=== PATIENT | female | born 1945 | race Caucasian/White ===

== ENCOUNTER 2021-10-15 15:47 | Emergency (ER) | payer MEDICARE, BC, SELFPAY ==
[2021-10-15 15:58] VITALS: BP 132/84; PULSE 77; RESP 18; TEMP 36.4; O2SAT 95; BMI 34.1
--- NOTE | 2021-10-15 16:07 | CRLHL7_ITS ---
For Patients: As a result of the Century Cures Act, medical imaging exams and procedure reports are released immediately into your electronic medical record. You may view this report before your referring provider. If you have questions, please contact your health care provider. INDICATION: Fall TECHNIQUE: Head CT without contrast. COMPARISON: None FINDINGS: CSF spaces: Within normal limits for age. Brain parenchyma: There are nonspecific low attenuation white matter changes consistent with chronic microvascular disease. No sign of mass, hemorrhage, or midline shift. Skull base and calvarium: High attenuation complete opacification of the right maxillary sinus. Mucosal thickening and fluid level in the left maxillary sinus. Some mucosal thickening and near complete opacification of left ethmoid air cells. The visualized orbits are grossly unremarkable. No skull fractures. Under form uniform high attenuation focus posterior right calvarium may be mineralized prior subperiosteal hematoma. There is intracranial atherosclerosis. 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 IMPRESSION: 1. No acute findings. 2. Nonspecific white matter disease, typical of chronic microvascular disease. Please note that all CT scans at this facility use dose modulation, iterative reconstruction, and/or weight-based dosing when appropriate to reduce radiation dose to as low as reasonably achievable. Dictated by Franco Valencia MD @ 10/15/2021 4:58:26 PM (Electronically Signed)
--- NOTE | 2021-10-15 16:53 | ED.GENADULT ---
HPI - General Adult General Date Seen: 10/15/21 Chief complaint: Head Injury/Pain Stated complaint: Fall, hit head Time Seen by Provider: 10/15/21 16:02 Source: patient History of Present Illness HPI narrative: Patient is a 76-year-old woman here with her after a fall her home. She says she was [place] in [place] and tripped over stick. She fell forward hitting the right side of her head. She did not have loss of consciousness although she felt briefly woozy. She denies neck pain. She does have a little bit of a headache although it is better now than it was when she 1st fell. She has not had any vomiting or altered mentation. She has a small cut by her lip. No loose or missing teeth. No other facial trauma. She has not take any blood thinners al Related Data Home Medications Medication Instructions Recorded Confirmed fluticasone 250 mcg-salmeterol 50 inhalation 10/15/21 mcg/dose blistr powdr for inhalation (Advair Diskus) fluticasone propionate 50 intranasal 10/15/21 mcg/actuation nasal spray,suspension glimepiride 1 mg tablet mg 10/15/21 liraglutide 0.6 mg/0.1 mL (18 mg/3 mg subcut 10/15/21 mL) subcutaneous pen injector (iBid2Saveza 3-Nickolas) lisinopril 2.5 mg tablet mg 10/15/21 lorazepam 0.5 mg tablet mg 10/15/21 omeprazole 20 mg capsule,delayed mg 10/15/21 release paroxetine HCl 20 mg tablet mg PO 10/15/21 pen needle, diabetic 32 gauge x 10/15/21 10/15/2132 (BD Sofiya 2nd Gen Pen Needle) prednisolone acetate 1 % eye drp 10/15/21 drops,suspension primidone 50 mg tablet mg 10/15/21 Previous Rx's Medication Instructions Recorded simvastatin 20 mg tablet 20 mg PO QPM #90 tabs 10/06/21 Allergies Allergy/AdvReac Type Severity Reaction Status Date / Time bupropion AdvReac Mild Diarrhea Verified 10/03/21 10:27 metformin AdvReac Unknown Verified 10/03/21 10:27 Review of Systems Status of ROS: Reports: 10 or more systems reviewed and unremarkable except as noted in History and below [facility] Medical History Biliary dyskinesia Cholelithiasis History of sarcoidosis (1980) Surgical History History of cornea transplant History of cystoscopy (2015) History of inguinal hernia repair History of lymph node biopsy History of total left knee replacement (2015) History of total right knee replacement (03/2016) History of total vaginal hysterectomy (TVH) (2010) History of tubal ligation (1982) Status post cholecystectomy (2016) Family History Paternal Grandmother Breast cancer Father Family history of early CAD, Onset Age: 38 Son Major depression Daughter Major depression Sister Parkinsonism Other Stroke Social History Narrative: 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 , 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 Head: Normocephalic. No hematoma or scalp lacerations. Eyes: Pupils are equal reactive. Extraocular movements are full. Conjunctivae are normal. ENT: Mucous membranes are moist. 0.5 cm laceration adjacent to the right outer upper lip. Does not involve the vermilion border. Dentition intact. No intraoral laceration. Neck: Supple without lymphadenopathy. Nontender to palpation. Heart: Regular rate and rhythm. No murmur or rub. Lungs: Clear bilaterally. No increased work of breathing, crackles or wheezes. Abdomen: Soft and nontender. No organomegaly. Extremities: Well perfused. No edema. No calf tenderness. Pulses intact. Neurologic: Patient is alert and oriented to person and place. Speech is fluent. Face is symmetric. Moves all extremities equally. Affect: Normal. Skin: Warm and dry. Well perfused. Const: Vital Signs, click to edit/add: Vital Signs - 24 hr 10/15/21 15:58 Temperature 97.6 F Pulse Rate [Right Pulse Oximeter] 77 Respiratory Rate 18 Blood Pressure [Ri ght Upper Arm] 132/84 Pulse Oximetry 95 Oxygen Delivery Me thod Room Air Documenting provider has reviewed patient's vital signs: yes Course Course Hospital Course: patient had a CT scan of her head which by my review is negative for acute findings such as intracranial hemorrhage radiology report is as follows:IMPRESSION: 1. No acute findings. 2. Nonspecific white matter disease, typical of chronic microvascular disease. Procedure note: The laceration near her lip was cleaned and explored. No evidence of foreign body. I closed this with Dermabond with good result. She tolerated this well without immediate complication. Patient is feeling well, without further complaints. Has not developed any additional concussive symptoms. Tylenol if needed. Return for symptoms of more severe headache or infection. Vital Signs Vital signs: Initial Vital Signs Temperature 97.6 F 10/15/21 15:58 Temperature Source Temporal Artery Scan 10/15/21 15:58 Pulse Rate 77 10/15/21 15:58 Respiratory Rate 18 10/15/21 15:58 Blood Pressure 132/84 10/15/21 15:58 Blood Pressure Mean 100 10/15/21 15:58 Blood Pressure Position Sitting 10/15/21 15:58 Pulse Oximetry 95 10/15/21 15:58 Oxygen Delivery Method 10/15/21 15:58 Vital Signs Temperature 97.6 F 10/15/21 15:58 Pulse Rate 77 10/15/21 15:58 Respiratory Rate 18 10/15/21 15:58 Blood Pressure 132/84 10/15/21 15:58 Pulse Oximetry 95 10/15/21 15:58 Oxygen Delivery Method 10/15/21 15:58 Temperature 97.6 F 10/15/21 15:58 Pulse Rate 77 10/15/21 15:58 Respiratory Rate 18 10/15/21 15:58 Blood Pressure 132/84 10/15/21 15:58 Pulse Oximetry 95 10/15/21 15:58 Oxygen Delivery Method 10/15/21 15:58 Discharge Plan Discharge Clinical Impression: Closed head injury, Facial laceration Patient Disposition: Home, Self-Care Condition: Improved Instructions: Laceration (ED), Head Injury (ED), Skin Adhesive Care (ED) Additional Instructions: return for signs of infection or more serious head injury such as severe headache, vomiting, confusion. Prescriptions: No Action primidone 50 mg tablet fluticasone propion-salmeterol [Advair Diskus] 250-50 mcg/dose blister with device INHALATION Label Comments: INHALE 1 PUFF BY MOUTH TWICE DAILY glimepiride 1 mg tablet Label Comments: TAKE 1 TABLET BY MOUTH DAILY prednisolone acetate 1 % drops,suspension Label Comments: SHAKE LIQUID AND INSTILL 1 DROP IN BOTH EYES EVERY DAY lorazepam 0.5 mg tablet Label Comments: TAKE 1 TABLET BY MOUTH DAILY NEEDED FOR SEVERE ANXIETY ONLY paroxetine HCl 20 mg tablet PO Label Comments: TAKE 1 TABLET BY MOUTH DAILY omeprazole 20 mg capsule,delayed release(DR/EC) Label Comments: TAKE 1 CAPSULE BY MOUTH DAILY fluticasone propionate 50 mcg/actuation spray,suspension INTRANASAL Label Comments: USE 2 SPRAYS IN EACH NOSTRIL DAILY NEEDED lisinopril 2.5 mg tablet Label Comments: TAKE 1 TABLET BY MOUTH DAILY Victoza 3-Nickolas 0.6 mg/0.1 mL (18 mg/3 mL) pen injector SUBCUT Label Comments: ADMINISTER 1.8 MG UNDER THE SKIN DAILY (DME) pen needle, diabetic [BD Sofiya 2nd Gen Pen Needle] 32 gauge x 5/32 needle MISCELLANEOUS Label Comments: USE TO TEST DAILY DIRECTED simvastatin 20 mg tablet 20 mg PO QPM Qty: 90 0RF Follow Up/Referrals: Joan Aragon MD [Primary Care Provider] - Stand Alone Forms: [employer] Info Instructions
== END 2021-10-15 17:39 | disposition home or self-care (01) ==
LOC: ED 17:32
PROVIDERS: Emergency Provider Emergency Medicine; PCP Family Medicine
DX: S09.8XXA Other specified injuries of head, initial encounter (principal); S01.511A Laceration without foreign body of lip, initial encounter; W01.0XXA Fall on same level from slipping, tripping and stumbling without subsequent striking against object, initial encounter; Y93.01 Activity, walking, marching and hiking; Y92.828 Other wilderness area as the place of occurrence of the external cause; Y99.8 Other external cause status
CPT/HCPCS: 12011; 70450; 99284

== ENCOUNTER 2021-10-26 10:53 | Outpatient (CLI) | payer MEDICARE, BC, SELFPAY ==
[2021-10-26 17:56] LABS: Creatinine Urine 198.1 mg/dL
[2021-10-26 17:58] LABS: Microalbumin Creatinine Ratio 10 mg/g (0-30); Microalbumin Urine 2 mg/dL
[2021-10-26 18:03] LABS: Chloride* 101 mmol/L (96-114)
[2021-10-26 18:04] LABS: Albumin* 4.1 g/dL (3.3-5.0); Sodium* 135 mmol/L (135-149)
[2021-10-26 18:05] LABS: Potassium* 4.4 mmol/L (3.6-5.1)
[2021-10-26 18:07] LABS: Alanine Aminotransferase* 23 U/L (4-35); Alkaline Phosphatase* 99 U/L (40-150); Aspartate Amino Transferase* 27 U/L (12-35); Bilirubin Total* 0.6 mg/dL (0.1-1.5); Blood Urea Nitrogen* 10 mg/dL (7-30); Carbon Dioxide* 26 mmol/L (20-32); Cholesterol* 184 mg/dL (90-199); Creatinine* 0.8 mg/dL (0.5-1.5); Estimated Glomerular Filt Rate 76 ml/min; Glucose* 201 mg/dL (60-115); Total Protein* 6.5 g/dL (6.0-8.3); Triglycerides* 113 mg/dL (40-149)
[2021-10-26 18:08] LABS: Calcium* 8.7 mg/dL (8.4-10.6); HDL Cholesterol* 91 mg/dL (>=50); LDL Cholesterol Calculated 70 mg/dL (<100)
== END 2021-10-26 10:54 | disposition home or self-care (01) ==
PROVIDERS: PCP Family Medicine; Visit Provider Family Medicine
DX: Z01.419 Encounter for gynecological examination (general) (routine) without abnormal findings (principal); E11.9 Type 2 diabetes mellitus without complications; E78.5 Hyperlipidemia, unspecified; I10 Essential (primary) hypertension; F32.A Depression, unspecified; K21.9 Gastro-esophageal reflux disease without esophagitis
CPT/HCPCS: 80053; 80061; 82043; 82570

== ENCOUNTER 2022-01-15 15:13 | Emergency (ER) | payer MEDICARE, BC, SELFPAY ==
[2022-01-15 15:33] VITALS: BP 137/80; PULSE 92; RESP 24; TEMP 36.7; O2SAT 93; BMI 35.2
--- NOTE | 2022-01-15 15:45 | ED_ITS ---
HPI - General Adult General Time Seen by Provider: 15:45 Date Seen: 01/15/22 Chief complaint: Shortness of Breath/Dyspnea Stated complaint: Difficulty Breathing Time Seen by Provider: 01/15/22 15:45 Source: patient and RN notes reviewed Mode of arrival: ambulatory Limitations: no limitations History of Present Illness HPI narrative: Patient is a 76-year-old female coming in with shortness of breath. She has a history of asthma and states she just takes Advair once daily. Her asthma is not been problematic. She states the shortness of breath almost feels like asthma, she has tried her inhaler has not really change. It is worse with activity. Seemed to hit her suddenly on Saturday. She has not really had any cough or cold symptoms with this. No fevers or chills. Saturday she had some chest pain but none since. She does not think that this is cardiac in nature but her dad did have his 1st heart attack in his 30s and in his 50s from heart disease. She herself is never had a diagnosis ischemic cardiac disease, no arrhythmia. She states she carries a diagnosis of asthma though. She is a nonsmoker. No fevers or chills, does not feel like this is an illness. She has noticed no increased edema but notes she has had a history of a left DVT a few years ago. She is also diabetic. Related Data Home Medications Medication Instructions Recorded Confirmed prednisolone acetate 1 % eye drp 10/15/21 10/31/21 drops,suspension lorazepam 0.5 mg tablet 0.5 mg PO QDAY PRN 10/31/21 10/31/21 Previous Rx's Medication Instructions Recorded fluticasone 250 mcg-salmeterol 50 1 inh inhalation QDAY #60 ea 10/31/21 mcg/dose blistr powdr for inhalation (Advair Diskus) fluticasone propionate 50 2 spray intranasal QDAY PRN nasal 10/31/21 mcg/actuation nasal congestion #16 grams spray,suspension glimepiride 1 mg tablet 1 mg PO QDAY #90 tabs 10/31/21 liraglutide 0.6 mg/0.1 mL (18 mg/3 1.8 mg (0.3 mL) subcut QDAY 10/31/21 mL) subcutaneous pen injector diabetes mellitus #9 mL (Victoza 3-Nickolas) lisinopril 2.5 mg tablet 2.5 mg PO QDAY #90 tabs 10/31/21 omeprazole 20 mg capsule,delayed 20 mg PO QDAY #90 caps 10/31/21 release paroxetine HCl 20 mg tablet 20 mg PO QDAY #90 tabs 10/31/21 simvastatin 20 mg tablet 20 mg PO QPM #90 tabs 10/31/21 pen needle, diabetic 32 gauge x #100 ea 11/02/21 (BD Sofiya 2nd Gen Pen Needle) primidone 50 mg tablet 50 mg PO DAILY #90 tabs 12/08/21 apixaban 5 mg (74 tabs) tablets in See Rx Instructions PO .COMPLEX 01/15/22 a dose pack (EliquIoxus DVT-PE Treat #74 ea 30D Start) Allergies Allergy/AdvReac Type Severity Reaction Status Date / Time bupropion AdvReac Mild Diarrhea Verified 10/31/21 12:54 metformin AdvReac Unknown Verified 10/31/21 12:54 Review of Systems Status of ROS: Reports: 10 or more systems reviewed and unremarkable except as noted in History and below [facility] Medical History (Updated 01/15/22 @ 18:30 by Darlene Avendaño MD) Anxiety disorder 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) Depression Diabetes mellitus (~2015) Fuchs' corneal dystrophy History of sarcoidosis (1980) No retinopathy on exam (06/2017) Obesity (BMI 30.0-34.9) Obstructive sleep apnea treated with continuous positive airway pressure (CPAP) Ocular migraine 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) Transient diplopia (05/2018) Vertebral artery stenosis (04/2018) Surgical History (Updated 10/31/21 @ 10:59 by Joan Aragon MD) History of cornea transplant History of cystoscopy (2015) History of inguinal hernia repair History of lymph node biopsy History of total left knee replacement (2015) History of total right knee replacement (03/2016) History of total vaginal hysterectomy (TVH) (2010) History of tubal ligation (1982) Status post cholecystectomy (2016) Family History Paternal Grandmother Breast cancer Father Family history of early CAD, Onset Age: 38 Son Major depression Daughter Major depression Sister Parkinsonism Other Stroke Social History Narrative: 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 , 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, 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 non-smoker rarely consumes alcohol Smoking Status: Never smoker How often do you have a drink containing alcohol: never AUDIT-C Alcohol total score: 0 Non-prescribed substance use: denies use Little interest or pleasure in doing things: several days Feeling down, depressed, or hopeless: several days Exam Const: Vital Signs, click to edit/add: Vital Signs - 24 hr 01/15/22 15:33 01/15/22 15:56 01/15/22 16:30 Temperature 98.1 F Pulse Rate [Pulse Oximeter] 92 85 Respiratory Rate 24 16 Blood Pressure [Ri ght Upper Arm] 137/80 106/60 Pulse Oximetry 93 93 90 Oxygen Delivery Me thod Room Air Room Air 01/15/22 18:00 Temperature Pulse Rate [Pulse Oximeter] 91 Respiratory Rate 22 Blood Pressure [Ri ght Upper Arm] 105/62 Pulse Oximetry 91 Oxygen Delivery Me thod Room Air Documenting provider has reviewed patient's vital signs: yes Common normals: no apparent distress, oriented x3, no limitations, healthy appearing, alert and well nourished General appearance: cooperative, comfortable, well kempt and well developed Nutritional appearance: overweight HENMT: Common normals: normocephalic, head/scalp atraumatic, hearing grossly normal bilaterally, external ears normal, external nose normal, nasal mucous membranes and turbinates normal, moist oral mucous membranes, oropharynx normal (Uvula surgically absent), dentition normal and gingiva normal Head and scalp: normocephalic and atraumatic Nose: external nose normal and nasal mucous membranes and turbinates normal External ear: external ears normal Eye: Common normals: PERRL, EOMs intact bilaterally, conjunctivae normal and no scleral icterus Conjunctiva: conjunctiva(e) normal Pupil: PERRL Neck & C-Spine: Common normals: full ROM, no lymphadenopathy, supple, no meningeal signs, no JVD and thyroid normal Thyroid: thyroid normal Chest: Common normals: inspection of chest normal and palpation of chest normal Resp: Common normals: normal respiratory effort, no retractions, no use of accessory muscles and clear to auscultation bilaterally Effort & inspection: able to speak in complete sentences Auscultation: clear to auscultation bilaterally Cardio: Common normals: no JVD, regular rate, regular rhythm, S1 normal heart sound, S2 normal heart sound, no gallops, no clicks and no murmurs Rate: regular rate Rhythm: regular rhythm Heart sounds: S1 normal and S2 normal GI: Common normals: Normal to inspection, nondistended, normoactive bowel sounds present, soft to palpation, non-tender, no hepatosplenomegaly and no masses Palpation: soft and no hepatosplenomegaly Extremity: Other: Has mild indentation sock line bilaterally that is symmetrical, other than that no edema but has thickened lower extremities. No calf tenderness. Neuro: Common normals: oriented x3, CN's II-XII intact bilaterally, moves all extremities, no focal motor deficits, no sensory deficits noted and gait normal Sensorium/orientation: alert Meningeal signs: no meningeal signs Speech: speech normal Psych: Appearance: well kempt Course Course Hospital Course: Reviewed with patient that we will consider cardiac, pulmonary, thromboembolic etiologies. She will be on cardiac monitoring and pulse oximetry, EKG and chest x-ray will be obtained. We will do the triple viral swab given the outbreaks that we are seen of these viruses. Right now she is not actively wheezing. She is hemodynamically stable, no definitive hypoxia but will continue to monitor her oxygen saturation. Will get appropriate labs. Reevaluation(s) Reevaluation #1: Reviewed that patient's O2 sats are currently at 90%, chest x-ray showing no acute change. Given her history of a DVT in these borderline oxygen saturation without any active wheezing, I a.m. going to proceed with chest CT PE protocol. Will let the patient know. Time: 16:52 Reevaluation #2: Reviewed with patient that she has bilateral pulmonary emboli, moderate clot burden but no evidence of any cardiac strain or pulmonary infarct at this time. She took Eliquis before for her prior DVT. She tolerated it well. We discussed factor 5 Leiden, she would like to have that checked. She can get the report when she follows up with her primary care provider in clinic care. We will give her her 1st dose of Eliquis here tonight, 10 mg. She is currently oxygenating around 95-96%. Have not seen any evidence of any requirements for oxygen while here. Time: 18:23 Vital Signs Vital signs: Initial Vital Signs Temperature 98.1 F 11/21/22 15:33 Temperature Source Temporal Artery Scan 01/15/22 15:33 Pulse Rate 92 01/15/22 15:33 Respiratory Rate 24 01/15/22 15:33 Blood Pressure 137/80 01/15/22 15:33 Blood Pressure Mean 99 01/15/22 15:33 Blood Pressure Position Supine 01/15/22 15:33 Pulse Oximetry 93 01/15/22 15:33 Oxygen Delivery Method 01/15/22 15:33 Vital Signs Temperature 98.1 F 01/15/22 15:33 Pulse Rate 92 01/15/22 15:33 Respiratory Rate 24 01/15/22 15:33 Blood Pressure 137/80 01/15/22 15:33 Pulse Oximetry 93 01/15/22 15:33 Oxygen Delivery Method 01/15/22 15:33 Temperature 98.1 F 01/15/22 15:33 Pulse Rate 91 01/15/22 18:00 Respiratory Rate 22 01/15/22 18:00 Blood Pressure 105/62 01/15/22 18:00 Pulse Oximetry 91 01/15/22 18:00 Oxygen Delivery Method 01/15/22 18:00 Medical Decision Making Lab Data Lab results reviewed: Yes I reviewed the patient's lab results Labs: Lab Results 01/15/22 01/15/22 01/15/22 Range/Units 16:20 16:20 16:20 WBC 6.94 (4.50-11.00) K/uL RBC 4.48 (4.00-5.20) m/uL Hgb 12.5 (12.0-16.0) gm/dL Hct 39.0 (33.0-51.0) % MCV 87 (80-100) fL MCH 28 (26-34) pg MCHC 32 (32-36) gm/dL RDW Coeff of Rolando 14.2 (11.5-15.5) % Plt Count 185 (140-440) K/uL Neut % (Auto) 62.8 (42.0-72.0) % Lymph % (Auto) 25.9 (20-44) % Oxford % (Auto) 7.6 (0.0-11.0) % Eos % (Auto) 2.7 (0.0-7.0) % Baso % (Auto) 0.7 (0.0-3.0) % Neut # (Auto) 4.35 (1.7-7.0) K/uL Lymph # (Auto) 1.80 (0.90-2.90) K/uL Oxford # (Auto) 0.50 (0.00-0.90) K/UL Eos # (Auto) 0.19 (0.00-0.50) K/uL Baso # (Auto) 0.05 (0.00-0.30) K/uL Abs Immat Gran (auto) 0.02 (0.00-0.30) K/uL Imm/Tot Granulo (auto) 0.3 % D-Dimer Quant (PE/DVT) 2.55 H (0.00-0.50) ug/ml VBG pH (7.32-7.43) VBG pCO2 (40-50) mmHG VBG pO2 (25-47) mmHG VBG HCO3 (21-28) mmol/L Sodium 134 L (135-149) mmol/L Potassium 4.4 (3.6-5.1) mmol/L Chloride 103 (96-114) mmol/L Carbon Dioxide 22 (20-32) mmol/L BUN 15 (7-30) mg/dL Creatinine 0.7 (0.5-1.5) mg/dL Estimated Creat Clear 40.68 Estimated GFR 89 ml/min Glucose 336 H (60-115) mg/dL Calcium 9.2 (8.4-10.6) mg/dL Total Bilirubin 0.6 (0.1-1.5) mg/dL AST 31 (12-35) U/L ALT 23 (4-35) U/L Alkaline Phosphatase 86 (40-150) U/L Troponin I < 0.01 L (0.01-0.04) ng/mL C-Reactive Protein < 0.5 L (0.5-1.0) mg/dL NT-Pro-B Natriuret Pep 283 (0-450) PG/mL Total Protein 6.8 (6.0-8.3) g/dL Albumin 4.4 (3.3-5.0) g/dL SARS-CoV-2 (PCR) (Negative) Influenza Type A (PCR) (Negative) Influenza Type B (PCR) (Negative) RSV (PCR) (Negative) 01/15/22 01/15/22 Range/Units 16:20 16:20 WBC (4.50-11.00) K/uL RBC (4.00-5.20) m/uL Hgb (12.0-16.0) gm/dL Hct (33.0-51.0) % MCV (80-100) fL MCH (26-34) pg MCHC (32-36) gm/dL RDW Coeff of Rolando (11.5-15.5) % Plt Count (140-440) K/uL Neut % (Auto) (42.0-72.0) % Lymph % (Auto) (20-44) % Oxford % (Auto) (0.0-11.0) % Eos % (Auto) (0.0-7.0) % Baso % (Auto) (0.0-3.0) % Neut # (Auto) (1.7-7.0) K/uL Lymph # (Auto) (0.90-2.90) K/uL Oxford # (Auto) (0.00-0.90) K/UL Eos # (Auto) (0.00-0.50) K/uL Baso # (Auto) (0.00-0.30) K/uL Abs Immat Gran (auto) (0.00-0.30) K/uL Imm/Tot Granulo (auto) % D-Dimer Quant (PE/DVT) (0.00-0.50) ug/ml VBG pH 7.388 (7.32-7.43) VBG pCO2 41 (40-50) mmHG VBG pO2 46.5 (25-47) mmHG VBG HCO3 25 (21-28) mmol/L Sodium (135-149) mmol/L Potassium (3.6-5.1) mmol/L Chloride (96-114) mmol/L Carbon Dioxide (20-32) mmol/L BUN (7-30) mg/dL Creatinine (0.5-1.5) mg/dL Estimated Creat Clear Estimated GFR ml/min Glucose (60-115) mg/dL Calcium (8.4-10.6) mg/dL Total Bilirubin (0.1-1.5) mg/dL AST (12-35) U/L ALT (4-35) U/L Alkaline Phosphatase (40-150) U/L Troponin I (0.01-0.04) ng/mL C-Reactive Protein (0.5-1.0) mg/dL NT-Pro-B Natriuret Pep (0-450) PG/mL Total Protein (6.0-8.3) g/dL Albumin (3.3-5.0) g/dL SARS-CoV-2 (PCR) Negative SARS-CoV-2 (Negative) Influenza Type A (PCR) Negative PCR FLU A (Negative) Influenza Type B (PCR) Negative PCR FLU B (Negative) RSV (PCR) Negative PCR RSV (Negative) Imaging Data Chest x-ray: Attestation: I have reviewed the pertinent imaging results. My impression: No left costophrenic angle can be seen as it is not on the x-ray. Otherwise on my preliminary read, no acute pathology seen definitively. Weight the Radiology over-read. Radiologist's impression: Patient: [facility] Facility:?[facility] Patient ID:?[id number] Site Patient ID:?[id number]. Site :?[id number] Study:?XRay Chest PORTABLE-01/15/2022 4:15:23 PM Ordering Physician:Katina Colon Final Report: INDICATION: DIFFICULTY BREATHING TECHNIQUE: Chest 1 view. COMPARISON: 11/25/16 FINDINGS: Cardiovascular and mediastinum: Heart size and vasculature are normal in caliber and appearance. Mediastinum is within normal limits. Lungs and pleural space: Lungs are clear. No sign of infiltrate or mass. No sign of pleural effusion. No pneumothorax. Bones and soft tissues: No significant findings. IMPRESSION: Unremarkable chest. Dictated by: Ko Bunn MD @ 01/15/2022 16:32:28 (Electronic Signature) CT scan - chest: Attestation: I have reviewed the pertinent imaging results. Radiologist's impression: Patient: [facility] Facility:?[facility] Patient ID:?[id number] Site Patient ID:?[id number]. Site :?[id number] Study:?CT Chest Angio 95CC ISOVUE 370-01/15/2022 5:22:19 PM Ordering Physician:Katina Colon Final Report: INDICATION: DIFFICULTY BREATHING CT CHEST WITH CONTRAST TECHNIQUE: Multidetector CT imaging was performed through the chest following intravenous contrast administration using 95 mL Isovue 370. Coronal and sagittal reconstructions were generated. COMPARISON: None. FINDINGS: Lungs and airways: Scattered minimal dependent and basilar lung atelectasis or scarring bilaterally. No confluent infiltrates, suspicious nodules, or masses. Central airways are patent. Pleura and pleural spaces: No pleural effusions or pneumothorax. Heart and mediastinum: Normal heart size. Upper normal LV/RV ratio with no definite evidence of cardiac strain. No significant pericardial effusion. No pathologically enlarged mediastinal lymph nodes. Vascular structures: Multiple tubular filling defects consistent with pulmonary emboli involving the right upper, right middle, right lower, left upper, and left lower lobe pulmonary artery branches. Moderate overall clot burden. Normal caliber thoracic aorta. Mild coronary artery calcifications. Chest wall and axillae: No mass or axillary lymphadenopathy. Osseous structures: Mild spinal degenerative changes. No acute fractures identified. Upper abdomen: Moderately large hiatal hernia. Status post cholecystectomy. IMPRESSION: 1. Multiple bilateral pulmonary emboli, with moderate clot burden. 2. Nonacute additional findings as detailed above. Report called to Dr. Alvarez at 6:07 p.m. on 01/15/2022. KO DOOLEY MD [employer] Dictated by Dilip Dooley MD @ 01/15/2022 6:00:36 PM Please note that all CT scans at this facility use dose modulation, iterative reconstruction, and/or weight-based dosing when appropriate to reduce radiation dose to as low as reasonably achievable. Dictated by: Dilip Dooley MD @ 01/15/2022 18:09:34 (Electronic Signature) ECG Data Attestation: I personally reviewed and interpreted this ECG as follows: (Normal sinus rhythm, 85 beats per minute. No acute ischemia noted. QT corrected 433 milliseconds.) Critical Care Time Critical Care Time Critical Care Time: No Discharge Plan Discharge Clinical Impression: Bilateral pulmonary embolism Patient Disposition: Home, Self-Care Condition: Stable Additional Instructions: Need to take the Eliquis 10 mg twice a day for 7 days and then you will go to 5 mg twice a day after that. You need to follow up in clinic within the next couple of weeks. No ibuprofen, aspirin, NSAIDs well you are on Eliquis. Tylenol is the pain management of choice well on blood thinners. Should you have increasing shortness of breath, difficulty breathing, start having bloody sputum or chest pain, do need you to return for re-evaluation. Have your primary care provider look up the factor 5 Leiden results when you follow-up in clinic. Activity Level: Activity as Tolerated Discharge Diet: Regular Prescriptions: [place] DVT-PE Treat 30D Start 5 mg (74 tabs) tablets,dose pack See Rx Instructions .ROUTE .COMPLEX Qty: 74 0RF Rx Instructions: orally per package directions No Action fluticasone propion-salmeterol [Advair Diskus] 250-50 mcg/dose blister with device 1 inh INHALATION QDAY Qty: 60 8RF fluticasone propionate 50 mcg/actuation spray,suspension 2 spray INTRANASAL QDAY PRN (Reason: nasal congestion) Qty: 16 8RF glimepiride 1 mg tablet 1 mg PO QDAY Qty: 90 11RF Victoza 3-Nickolas 0.6 mg/0.1 mL (18 mg/3 mL) pen injector 1.8 mg SUBCUT QDAY Qty: 9 12RF lisinopril 2.5 mg tablet 2.5 mg PO QDAY Qty: 90 3RF omeprazole 20 mg capsule,delayed release(DR/EC) 20 mg PO QDAY Qty: 90 4RF paroxetine HCl 20 mg tablet 20 mg PO QDAY Qty: 90 4RF simvastatin 20 mg tablet 20 mg PO QPM Qty: 90 4RF prednisolone acetate 1 % drops,suspension Label Comments: SHAKE LIQUID AND INSTILL 1 DROP IN BOTH EYES EVERY DAY lorazepam 0.5 mg tablet 0.5 mg PO QDAY PRN Label Comments: TAKE 1 TABLET BY MOUTH DAILY NEEDED FOR SEVERE ANXIETY ONLY (DME) pen needle, diabetic [BD Sofiya 2nd Gen Pen Needle] 32 gauge x 5/32 needle MISCELLANEOUS Qty: 100 6RF Rx Instructions: As directed primidone 50 mg tablet 50 mg PO DAILY Qty: 90 0RF Follow Up/Referrals: Joan Aragon MD [Primary Care Provider] - Stand Alone Forms: [facility] Info Inst[facility]
--- NOTE | 2022-01-15 15:55 | CRLHL7_ITS ---
For Patients: As a result of the Century Cures Act, medical imaging exams and procedure reports are released immediately into your electronic medical record. You may view this report before your referring provider. If you have questions, please contact your health care provider. INDICATION: DIFFICULTY BREATHING TECHNIQUE: Chest 1 view. COMPARISON: 11/25/16 FINDINGS: Cardiovascular and mediastinum: Heart size and vasculature are normal in caliber and appearance. Mediastinum is within normal limits. Lungs and pleural space: Lungs are clear. No sign of infiltrate or mass. No sign of pleural effusion. No pneumothorax. Bones and soft tissues: No significant findings. IMPRESSION: Unremarkable chest. Dictated by: Carrington Bunn MD @ 01/15/2022 16:32:28 (Electronically Signed)
[2022-01-15 15:56] VITALS: O2SAT 93
[2022-01-15 16:30] VITALS: BP 106/60; PULSE 85; RESP 16; O2SAT 90
[2022-01-15 16:32] LABS: HCO3 VBG 25 mmol/L (21-28); PCO2 VBG 41 mmHG (40-50); PO2 VBG 46.5 mmHG (25-47); pH VBG 7.388 (7.32-7.43)
[2022-01-15 16:34] LABS: Basophils Absolute Auto 0.05 K/uL (0.00-0.30); Basophils Percent Auto 0.7 % (0.0-3.0); Eosinophils Absolute Auto 0.19 K/uL (0.00-0.50); Eosinophils Percent Auto 2.7 % (0.0-7.0); Hemoglobin* 12.5 gm/dL (12.0-16.0); Immature Granulocytes Abs Auto 0.02 K/uL (0.00-0.30); Immature Granulocytes Pct Auto 0.3 %; Lymphocytes Percent Auto 25.9 % (20-44); Mean Corpuscular HGB Conc 32 gm/dL (32-36); Mean Corpuscular Hemoglobin 28 pg (26-34); Mean Corpuscular Volume 87 fL (80-100); Monocytes Percent Auto 7.6 % (0.0-11.0); Neutrophils Absolute Auto 4.35 K/uL (1.7-7.0); Neutrophils Percent Auto 62.8 % (42.0-72.0); Platelet Count* 185 K/uL (140-440); RDW Coefficient of Variation % 14.2 % (11.5-15.5); Red Blood Count 4.48 m/uL (4.00-5.20); White Blood Count* 6.94 K/uL (4.50-11.00)
[2022-01-15 16:36] LABS: Slide Review Reflex No
--- NOTE | 2022-01-15 16:51 | CRLHL7_ITS ---
For Patients: As a result of the Cures Act, medical imaging exams and procedure reports are released immediately into your electronic medical record. You may view this report before your referring provider. If you have questions, please contact your health care provider. INDICATION: DIFFICULTY BREATHING CT CHEST WITH CONTRAST TECHNIQUE: Multidetector CT imaging was performed through the chest following intravenous contrast administration using 95 mL Isovue 370. Coronal and sagittal reconstructions were generated. COMPARISON: None. FINDINGS: Lungs and airways: Scattered minimal dependent and basilar lung atelectasis or scarring bilaterally. No confluent infiltrates, suspicious nodules, or masses. Central airways are patent. Pleura and pleural spaces: No pleural effusions or pneumothorax. Heart and mediastinum: Normal heart size. Upper normal LV/RV ratio with no definite evidence of cardiac strain. No significant pericardial effusion. No pathologically enlarged mediastinal lymph nodes. Vascular structures: Multiple tubular filling defects consistent with pulmonary emboli involving the right upper, right middle, right lower, left upper, and left lower lobe pulmonary artery branches. Moderate overall clot burden. Normal caliber thoracic aorta. Mild coronary artery calcifications. Chest wall and axillae: No mass or axillary lymphadenopathy. Osseous structures: Mild spinal degenerative changes. No acute fractures identified. Upper abdomen: Moderately large hiatal hernia. Status post cholecystectomy. IMPRESSION: 1. Multiple bilateral pulmonary emboli, with moderate clot burden. 2. Nonacute additional findings as detailed above. Report called to Dr. Alvarez at 6:07 p.m. on 01/15/2022. KO DOOLEY MD [employer] Dictated by Dilip Dooley MD @ 01/15/2022 6:00:36 PM Please note that all CT scans at this facility use dose modulation, iterative reconstruction, and/or weight-based dosing when appropriate to reduce radiation dose to as low as reasonably achievable. Dictated by: Dilip Dooley MD @ 01/15/2022 18:09:34 (Electronically Signed)
[2022-01-15 16:53] LABS: Albumin* 4.4 g/dL (3.3-5.0); Chloride* 103 mmol/L (96-114)
[2022-01-15 16:54] LABS: Potassium* 4.4 mmol/L (3.6-5.1); Sodium* 134 mmol/L (135-149)
[2022-01-15 16:56] LABS: Creatinine* 0.7 mg/dL (0.5-1.5); Est. Creatinine Clearance* 40.68; Estimated Glomerular Filt Rate 89 ml/min
[2022-01-15 16:57] LABS: Alanine Aminotransferase* 23 U/L (4-35); Alkaline Phosphatase* 86 U/L (40-150); Aspartate Amino Transferase* 31 U/L (12-35); Bilirubin Total* 0.6 mg/dL (0.1-1.5); Blood Urea Nitrogen* 15 mg/dL (7-30); Calcium* 9.2 mg/dL (8.4-10.6); Carbon Dioxide* 22 mmol/L (20-32); Glucose* 336 mg/dL (60-115); Total Protein* 6.8 g/dL (6.0-8.3)
[2022-01-15 17:03] LABS: C Reactive Protein* < 0.5 mg/dL (0.5-1.0); D Dimer Quantitative* 2.55 ug/ml (0.00-0.50)
[2022-01-15 17:05] LABS: NT Pro B Type NatriureticPept* 283 PG/mL (0-450)
[2022-01-15 17:12] LABS: Troponin I* < 0.01 ng/mL (0.01-0.04)
[2022-01-15 17:13] LABS: PCR FLU A Negative PCR FLU A (Negative); PCR FLU B Negative PCR FLU B (Negative); PCR RSV Negative PCR RSV (Negative)
[2022-01-15 17:15] LABS: SARS PCR* Negative SARS-CoV-2 (Negative)
[2022-01-15 18:00] VITALS: BP 105/62; PULSE 91; RESP 22; O2SAT 91
[2022-01-15] MEDS: APIXABAN 5 MG TABLET 10 MG PO (19:08)
[2022-01-21 15:42] LABS: FACV Specimen Whole Blood; Factor V Leiden (F5) Mutation Negative
== END 2022-01-15 20:12 | disposition home or self-care (01) ==
PROVIDERS: Emergency Provider Family Medicine; PCP Family Medicine
DX: I26.99 Other pulmonary embolism without acute cor pulmonale (principal)
CPT/HCPCS: 36415; 71045; 71260; 80053; 81241; 82803; 83880; 84484; 85025; 85379; 86140; 87502; 87634; 87635; 93005; 99284; A9270; Q9967

== ENCOUNTER 2022-02-08 14:26 | Outpatient (CLI) | payer MEDICARE, BC, SELFPAY ==
--- NOTE | 2022-02-08 14:40 | CRLHL7_ITS ---
For Patients: As a result of the Century Cures Act, medical imaging exams and procedure reports are released immediately into your electronic medical record. You may view this report before your referring provider. If you have questions, please contact your health care provider. BILATERAL SCREENING MAMMOGRAM WITH COMPUTER-AIDED DETECTION AND TOMOSYNTHESIS TECHNIQUE: CC and MLO views were obtained. These mammographic images have been obtained using full-field digital technique. These mammographic images were interpreted with the benefit of computer-aided detection. Breast Tomosynthesis was used in this interpretation. COMPARISON FILM: 01/24/21, 11/04/19, 06/13/18. FINDINGS: There are scattered areas of fibroglandular density IMPRESSION: There is no radiographic evidence for malignancy. ASSESSMENT: BI-RADS Category 1: Negative RECOMMENDATION: Routine screening mammogram in 1 year. A lay language report of this examination will be provided to the patient. Carrington Shaikh M.D. Diagnostic Radiologist [employer] [email or web address] Transcribed: 5:42 pm DW/Dictated by: Carrington Shaikh MD @ 02/09/2022 10:55:00 AM (Electronically Signed)
== END 2022-02-08 14:27 | disposition home or self-care (01) ==
LOC: MAMMO 14:27
PROVIDERS: PCP Family Medicine; Visit Provider Family Medicine
DX: Z12.31 Encounter for screening mammogram for malignant neoplasm of breast (principal)
CPT/HCPCS: 77063; 77067

== ENCOUNTER 2022-04-13 18:41 | Emergency (ER) | payer MEDICARE, BC, SELFPAY ==
[2022-04-13 18:55] VITALS: BP 139/84; PULSE 105; TEMP 37.1; BMI 34.8
--- NOTE | 2022-04-13 20:01 | CRLHL7_ITS ---
For Patients: As a result of the Century Cures Act, medical imaging exams and procedure reports are released immediately into your electronic medical record. You may view this report before your referring provider. If you have questions, please contact your health care provider. INDICATION: Leg pain and swelling. TECHNIQUE: Ultrasound venous duplex lower left extremity. Compression venous exam was performed using chaves-scale, color Doppler, and spectral Doppler analysis. COMPARISON: None. FINDINGS: Deep veins: Sonographic imaging demonstrates the left common femoral, deep femoral, superficial femoral, popliteal, posterior tibial and the contralateral right common femoral veins to be fully compressible with normal color Doppler blood flow. Superficial veins: Greater saphenous vein is fully compressible. No popliteal cyst. IMPRESSION: Normal left lower extremity venous ultrasound, no sign of deep venous thrombosis. Dictated by Demetrio Cosme MD @ 04/13/2022 9:15:59 PM (Electronically Signed)
--- NOTE | 2022-04-13 20:02 | ED.LOWEXIN ---
HPI - Extremity Injury (Lower) General Chief Complaint: Extremity Pain/Injury, Lower Stated Complaint: Leg Pain Time Seen by Provider: 04/13/22 19:52 History of Present Illness HPI Narrative: Pt is a 76 year old woman who stumbled yesterday on some stairs injuring her left anterior leg. She has a small area of bruising inferiror to the left knee consistent with a contusion. Pt has no skin breakdown. Pt has no pain in the posterior leg. No weakness. No other symptoms. Pt otherwise feeling well. Pt has a history of PE and is currently on full dose Eliquis. No other bruising or bleeding. Pt is concerned that she may have a DVT. Pain is minimal as is the swelling. Related Data Home Medications Medication Instructions Recorded Confirmed prednisolone acetate 1 % eye drp 10/15/21 02/21/22 drops,suspension lorazepam 0.5 mg tablet 0.5 mg PO QDAY PRN 10/31/21 02/21/22 Previous Rx's Medication Instructions Recorded fluticasone 250 mcg-salmeterol 50 1 inh inhalation QDAY #60 ea 10/31/21 mcg/dose blistr powdr for inhalation (Advair Diskus) fluticasone propionate 50 2 spray intranasal QDAY PRN nasal 10/31/21 mcg/actuation nasal congestion #16 grams spray,suspension glimepiride 1 mg tablet 1 mg PO QDAY #90 tabs 10/31/21 liraglutide 0.6 mg/0.1 mL (18 mg/3 1.8 mg (0.3 mL) subcut QDAY 10/31/21 mL) subcutaneous pen injector diabetes mellitus #9 mL (Victoza 3-Nickolas) lisinopril 2.5 mg tablet 2.5 mg PO QDAY #90 tabs 10/31/21 omeprazole 20 mg capsule,delayed 20 mg PO QDAY #90 caps 10/31/21 release paroxetine HCl 20 mg tablet 20 mg PO QDAY #90 tabs 10/31/21 simvastatin 20 mg tablet 20 mg PO QPM #90 tabs 10/31/21 pen needle, diabetic 32 gauge x #100 ea 11/02/21 (BD Sofiya 2nd Gen Pen Needle) albuterol sulfate 90 mcg/actuation 2 puff inhalation Q4H PRN 02/08/22 aerosol inhaler shortness of breath or wheezing #8.5 grams apixaban 5 mg tablet (Eliquis) 5 mg PO BID #180 tabs 02/08/22 Allergies Allergy/AdvReac Type Severity Reaction Status Date / Time bupropion AdvReac Mild Diarrhea Verified 04/13/22 18:55 metformin AdvReac Unknown Verified 04/13/22 18:55 Review of Systems Status of ROS: Reports: 10 or more systems reviewed and unremarkable except as noted in History and below [facility] Anxiety disorder 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) Depression Diabetes mellitus (~2015) Fuchs' corneal dystrophy History of sarcoidosis (1980) No retinopathy on exam (06/2017) Obesity (BMI 30.0-34.9) Obstructive sleep apnea treated with continuous positive airway pressure (CPAP) Ocular migraine 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) Transient diplopia (05/2018) Vertebral artery stenosis (04/2018) Surgical History History of cornea transplant History of cystoscopy (2015) History of inguinal hernia repair History of lymph node biopsy History of total left knee replacement (2015) History of total right knee replacement (03/2016) History of total vaginal hysterectomy (TVH) (2010) History of tubal ligation (1982) Status post cholecystectomy (2016) Family History Paternal Grandmother Breast cancer Father Family history of early CAD, Onset Age: 38 Son Major depression Daughter Major depression Sister Parkinsonism Other Stroke Social History Narrative: 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 , 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, 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 non-smoker rarely consumes alcohol Smoking Status: Never smoker Do you use any of these nicotine containing products: None How often do you have a drink containing alcohol: never How often do you have six or more drinks on one occasion: Never AUDIT-C Alcohol total score: 0 Non-prescribed substance use: denies use Little interest or pleasure in doing things: several days Feeling down, depressed, or hopeless: several days Exam Const: Vital Signs, click to edit/add: Vital Signs - 24 hr 04/13/22 18:55 Temperature 98.8 F Pulse Rate [Pulse Oximeter] 105 H Blood Pressure [Ri ght Upper Arm] 139/84 Oxygen Delivery Me thod Room Air General appearance: cooperative and comfortable HENMT: Common normals: external ears normal and external nose normal Head and scalp: normal to inspection Nose: external nose normal External ear: external ears normal Eye: Common normals: PERRL, EOMs intact bilaterally, conjunctivae normal and no scleral icterus Conjunctiva: conjunctiva(e) normal Pupil: PERRL Chest: Chest: symmetrical chest wall rise Resp: Common normals: clear to auscultation bilaterally Auscultation: clear to auscultation bilaterally Cardio: Common normals: regular rate, regular rhythm, S1 normal heart sound and S2 normal heart sound Rate: regular rate Rhythm: regular rhythm Heart sounds: S1 normal and S2 normal Extremity: General: normal exam except as noted; no deformity, no edema and no weight-bearing difficulty Other: Mild bruising noted distal to the left knee 3 cm in diameter Course Course Hospital Course: Pt seen and examined. Ultrasound venous ordered of the left lower extremity. Reevaluation(s) Reevaluation #1: Duplex of the left lower extremity negative for DVT. Time: 21:01 Vital Signs Vital signs: Initial Vital Signs Temperature 98.8 F 04/13/22 18:55 Temperature Source Temporal Artery Scan 04/13/22 18:55 Pulse Rate 105 H 04/13/22 18:55 Pulse Rhythm 04/13/22 18:55 Blood Pressure 139/84 04/13/22 18:55 Blood Pressure Mean 102 04/13/22 18:55 Blood Pressure Position Sitting 04/13/22 18:55 Oxygen Delivery Method 04/13/22 18:55 Vital Signs Temperature 98.8 F 04/13/22 18:55 Pulse Rate 105 H 04/13/22 18:55 Blood Pressure 139/84 04/13/22 18:55 Oxygen Delivery Method 04/13/22 18:55 Temperature 98.8 F 04/13/22 18:55 Pulse Rate 105 H 04/13/22 18:55 Blood Pressure 139/84 04/13/22 18:55 Oxygen Delivery Method 04/13/22 18:55 MDM - Extremity Injury (Lower) MDM Narrative Medical decision making narrative: Pt presents 2 days after injury to the left leg with concern for DVT. Pt's Venous Duplex negative. Pt is anticoagulated on Eliquis. Reassurance offered as well as symptomatic care of the bruise. Differential diagnosis includes hematoma, fracture, sprain, DVT, Neurological injury. Discharge Plan Discharge Clinical Impression: Contusion Condition: Stable Instructions: Contusion in Adults (ED) Additional Instructions: Warm compresses Tylenol as needed Activity Level: Activity as Tolerated Discharge Diet: Regular Prescriptions: No Action albuterol sulfate 90 mcg/actuation HFA aerosol inhaler 2 puff inhalation Q4H PRN (Reason: shortness of breath or wheezing) Qty: 8.5 2RF Eliquis 5 mg tablet 5 mg PO BID Qty: 180 4RF fluticasone propion-salmeterol [Advair Diskus] 250-50 mcg/dose blister with device 1 inh INHALATION QDAY Qty: 60 8RF fluticasone propionate 50 mcg/actuation spray,suspension 2 spray INTRANASAL QDAY PRN (Reason: nasal congestion) Qty: 16 8RF glimepiride 1 mg tablet 1 mg PO QDAY Qty: 90 11RF Victoza 3-Nickolas 0.6 mg/0.1 mL (18 mg/3 mL) pen injector 1.8 mg SUBCUT QDAY Qty: 9 12RF lisinopril 2.5 mg tablet 2.5 mg PO QDAY Qty: 90 3RF omeprazole 20 mg capsule,delayed release(DR/EC) 20 mg PO QDAY Qty: 90 4RF paroxetine HCl 20 mg tablet 20 mg PO QDAY Qty: 90 4RF simvastatin 20 mg tablet 20 mg PO QPM Qty: 90 4RF prednisolone acetate 1 % drops,suspension Label Comments: SHAKE LIQUID AND INSTILL 1 DROP IN BOTH EYES EVERY DAY lorazepam 0.5 mg tablet 0.5 mg PO QDAY PRN Label Comments: TAKE 1 TABLET BY MOUTH DAILY NEEDED FOR SEVERE ANXIETY ONLY (DME) pen needle, diabetic [BD Sofiya 2nd Gen Pen Needle] 32 gauge x 5 needle MISCELLANEOUS Qty: 100 6RF Rx Instructions: As directed Follow Up/Referrals: Joan Aragon MD [Primary Care Provider] - Stand Alone Forms: [facility] Info Instructions
[2022-04-13 21:24] VITALS: BP 135/86; PULSE 70; RESP 16; O2SAT 94
== END 2022-04-13 21:25 | disposition home or self-care (01) ==
PROVIDERS: Emergency Provider Internal Medicine; PCP Family Medicine
DX: S80.12XA Contusion of left lower leg, initial encounter (principal); W10.9XXA Fall (on) (from) unspecified stairs and steps, initial encounter
CPT/HCPCS: 93971; 99283

== ENCOUNTER 2022-05-21 11:06 | Outpatient (CLI) | payer MEDICARE, BC, SELFPAY | END 2022-05-21 11:07 | disposition home or self-care (01) | LOC: NFLDREF 05-22 02:55 | PROVIDERS: PCP Family Medicine; Referring Provider Family Medicine; Visit Provider Family Medicine | DX: I10 Essential (primary) hypertension (principal); E11.9 Type 2 diabetes mellitus without complications | CPT/HCPCS: 80053 ==

== ENCOUNTER 2022-08-21 10:49 | Outpatient (CLI) | payer MEDICARE, BC, SELFPAY | END 2022-08-21 10:50 | disposition home or self-care (01) | LOC: NFLDREF 22:11 | PROVIDERS: PCP Family Medicine; Referring Provider Family Medicine; Visit Provider Family Medicine | DX: I10 Essential (primary) hypertension (principal); E11.9 Type 2 diabetes mellitus without complications | CPT/HCPCS: 80053 ==

== ENCOUNTER 2022-11-07 13:49 | Outpatient (CLI) | payer MEDICARE, BC, SELFPAY | END 2022-11-07 13:50 | disposition home or self-care (01) | LOC: NFLDREF 11-16 11:32 | PROVIDERS: PCP Family Medicine; Referring Provider Family Medicine; Visit Provider Family Medicine | DX: Z01.419 Encounter for gynecological examination (general) (routine) without abnormal findings (principal); I26.99 Other pulmonary embolism without acute cor pulmonale; J45.30 Mild persistent asthma, uncomplicated; J30.9 Allergic rhinitis, unspecified; E11.9 Type 2 diabetes mellitus without complications; I10 Essential (primary) hypertension; K21.9 Gastro-esophageal reflux disease without esophagitis; K44.9 Diaphragmatic hernia without obstruction or gangrene; F32.A Depression, unspecified; F41.9 Anxiety disorder, unspecified; E78.5 Hyperlipidemia, unspecified; R10.9 Unspecified abdominal pain; R10.84 Generalized abdominal pain; F33.41 Major depressive disorder, recurrent, in partial remission; F41.1 Generalized anxiety disorder; G25.0 Essential tremor; G47.33 Obstructive sleep apnea (adult) (pediatric); Z99.89 Dependence on other enabling machines and devices | CPT/HCPCS: 80053; 80061; 82043; 82570 ==

== ENCOUNTER 2022-11-29 14:33 | Outpatient (CLI) | payer MEDICARE, BC, SELFPAY | END 2022-11-29 14:34 | disposition home or self-care (01) | LOC: NFLDREF 12-04 10:45 | PROVIDERS: PCP Family Medicine; Referring Provider Family Medicine; Visit Provider Physician Assistant | DX: R30.0 Dysuria (principal); N39.0 Urinary tract infection, site not specified | CPT/HCPCS: 87086; 87186 ==

== ENCOUNTER 2023-02-12 15:32 | Outpatient (CLI) | payer MEDICARE, BC, SELFPAY | END 2023-02-12 15:33 | disposition home or self-care (01) | LOC: NFLDREF 02-13 09:05 | PROVIDERS: PCP Family Medicine; Referring Provider Family Medicine; Visit Provider Registered Nurse | DX: R30.0 Dysuria (principal); N39.0 Urinary tract infection, site not specified | CPT/HCPCS: 87086; 87186 ==

== ENCOUNTER 2023-02-21 06:37 | Outpatient (CLI) | payer MEDICARE, BC, SELFPAY | END 2023-02-21 06:38 | disposition home or self-care (01) | LOC: NFLDREF 06:38 | PROVIDERS: PCP Family Medicine; Visit Provider Family Medicine | DX: R30.0 Dysuria (principal); N39.0 Urinary tract infection, site not specified | CPT/HCPCS: 87086 ==

== ENCOUNTER 2023-06-07 16:31 | Emergency (ER) | payer MEDICARE, BC, SELFPAY ==
[2023-06-07 16:41] VITALS: BP 152/84; PULSE 101; RESP 20; TEMP 36.7; O2SAT 100; BMI 33.3
--- NOTE | 2023-06-07 17:09 | ED.GENADULT ---
HPI - General Adult General Chief complaint: Shortness of Breath/Dyspnea Stated complaint: trouble breathing Time Seen by Provider: 06/07/23 16:42 History of Present Illness HPI narrative: Patient presents to the emergency department complaining of shortness of breath. Patient states she has been out of her inhaler medications x2 weeks as well as her diabetes medications. Patient denies chest pain. Patient has a hx of PE but is anti coagulated at this time. 77-year-old woman presenting to the emergency department concern of shortness of breath. She notes a history of asthma, sounds like mild persistent asthma for which she typically takes regularly dosed Advair and rarely needing an albuterol inhaler for rescue. She has been using her albuterol inhaler over the last week every 6 hours or so. Due to insurance coverage problems and the way her medications are prescribed(?), has been without her Advair over the last 2 weeks. She thought she would just see how it goes thinking that maybe she does not actually needed. She notes wheezes she demonstrates with more forceful exhalation in the throat area. She has not had fever. Not really with cough. No chest pain. Underlying history of pulmonary embolism and is currently anticoagulated with full-dose Eliquis/apixaban. Has been starting to notice more irritation on the roof of her mouth which she would equate with flare of allergies and yesterday finally took what sounds like a loratadine. Does have a history allergic rhinitis as well. Sounds as though allergies might precipitate her asthma flares as well. Has been experiencing some upper chest pressure that she would associate with her shortness of breath or asthma exacerbations. currently recuperating in hospital from extensive cardiac procedure. Ms. Moser is anticipating prolonged care for her and concerned about her ability to do this; surely this is adding to stress. Does have 3 children living in the area though that will be helping. Related Data Home Medications Medication Instructions Recorded Confirmed prednisolone acetate 1 % eye drp 10/15/21 02/21/23 drops,suspension lorazepam 0.5 mg tablet 0.5 mg PO QDAY PRN 10/31/21 02/21/23 Diabetic Test Strips 05/21/22 02/21/23 lancets 05/21/22 02/21/23 Previous Rx's Medication Instructions Recorded albuterol sulfate 90 mcg/actuation 2 puff inhalation Q4H PRN 02/08/22 aerosol inhaler shortness of breath or wheezing #8.5 grams apixaban 5 mg tablet (Eliquis) 5 mg PO BID #180 tabs 11/07/22 fluticasone 250 mcg-salmeterol 50 1 inh inhalation QDAY #60 ea 11/07/22 mcg/dose blistr powdr for inhalation (Advair Diskus) fluticasone propionate 50 2 spray intranasal QDAY PRN nasal 11/07/22 mcg/actuation nasal congestion #16 grams spray,suspension glimepiride 1 mg tablet 2 mg (2 x 1 mg) PO QDAY #180 tabs 11/07/22 liraglutide 0.6 mg/0.1 mL (18 mg/3 1.8 mg (0.3 mL) subcut QDAY 11/07/22 mL) subcutaneous pen injector diabetes mellitus #9 mL (Victoza 3-Nickolas) lisinopril 2.5 mg tablet 2.5 mg PO QDAY #90 tabs 11/07/22 omeprazole 20 mg capsule,delayed 20 mg PO QDAY #90 caps 11/07/22 release paroxetine HCl 20 mg tablet 20 mg PO QDAY #90 tabs 11/07/22 simvastatin 20 mg tablet 20 mg PO QPM #90 tabs 11/07/22 pen needle, diabetic 32 gauge x #100 ea 11/22/22 (BD Sofiya 2nd Gen Pen Needle) Allergies Allergy/AdvReac Type Severity Reaction Status Date / Time bupropion AdvReac Mild Diarrhea Verified 02/21/23 11:10 metformin AdvReac Unknown Verified 02/21/23 11:10 Review of Systems Status of ROS: Reports: 6 or more systems reviewed and unremarkable except as noted in History and below [facility] Medical History Deep vein thrombosis (DVT) (01/01/20) ?I82.409 - Acute embolism and thrombosis of unspecified deep veins of unspecified lower extremity (ICD-10) Dyslipidemia ?E78.5 - Hyperlipidemia, unspecified (ICD-10) Obesity (BMI 30.0-34.9) ?E66.9 - Obesity, unspecified (ICD-10) Vertebral artery stenosis (04/2018) ?I65.09 - Occlusion and stenosis of unspecified vertebral artery (ICD-10) Transient diplopia (05/2018) ?H53.2 - Diplopia (ICD-10) 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) ?H49.22 - Sixth [abducent] nerve palsy, left eye (ICD-10) Ocular migraine ?G43.109 - Migraine with aura, not intractable, without status migrainosus (ICD-10) Obstructive sleep apnea treated with continuous positive airway pressure (CPAP) ?G47.33 - Obstructive sleep apnea (adult) (pediatric) (ICD-10) ?Z99.89 - Dependence on other enabling machines and devices (ICD-10) No retinopathy on exam (06/2017) ?Z01.00 - Encounter for examination of eyes and vision without abnormal findings (ICD-10) History of sarcoidosis (1980) ?Z86.2 - Personal history of diseases of the blood and blood-forming organs and certain disorders involving the immune mechanism (ICD-10) Fuchs' corneal dystrophy ?H18.519 - Endothelial corneal dystrophy, unspecified eye (ICD-10) Diplopia (2020) ?H53.2 - Diplopia (ICD-10) Diabetes mellitus (~2015) ?E11.9 - Type 2 diabetes mellitus without complications (ICD-10) Depression ?F32.A - Depression, unspecified (ICD-10) 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) ?I77.3 - Arterial fibromuscular dysplasia (ICD-10) Anxiety disorder ?F41.9 - Anxiety disorder, unspecified (ICD-10) Surgical History Status post cholecystectomy (2016) ?Z90.49 - Acquired absence of other specified parts of digestive tract (ICD-10) History of tubal ligation (1982) ?Z98.51 - Tubal ligation status (ICD-10) History of total vaginal hysterectomy (TVH) (2010) ?Z90.710 - Acquired absence of both cervix and uterus (ICD-10) History of total right knee replacement (03/2016) ?Z96.651 - Presence of right artificial knee joint (ICD-10) History of total left knee replacement (2015) ?Z96.652 - Presence of left artificial knee joint (ICD-10) History of lymph node biopsy ?Z98.890 - Other specified postprocedural states (ICD-10) History of inguinal hernia repair ?Z98.890 - Other specified postprocedural states (ICD-10) ?Z87.19 - Personal history of other diseases of the digestive system (ICD-10) History of cystoscopy (2016) ?Z98.890 - Other specified postprocedural states (ICD-10) History of cornea transplant ?Z94.7 - Corneal transplant status (ICD-10) Family History Paternal Grandmother Breast cancer Father Family history of early CAD, Onset Age: 38 Son Major depression Daughter Major depression Sister Parkinsonism Other Stroke Social History Narrative: 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 Generally little tremulous particular with intention. Speaking easily. Appears to be breathing easily. Lungs are clear. With more forceful exhalation I do hear trace wheeze but it is more in the upper airway. Breath sounds throughout. Heart is in an elevated rate and regular rhythm. She appears to be well perfused. Moving all extremities without difficulty. Extremities are without edema. Oropharynx is little dry. Nearly absent uvula. I do not see cobblestoning. Const: Vital Signs, click to edit/add: Vital Signs - 24 hr 06/07/23 16:41 06/07/23 18:02 06/07/23 18:32 Temperature 98.0 F Pulse Rate 95 92 Pulse Rate [Right Pulse Oximeter] 101 H Respiratory Rate 20 16 14 Blood Pressure 106/67 123/53 L Blood Pressure [Ri ght Upper Arm] 152/84 H Pulse Oximetry 100 94 94 Oxygen Delivery Me thod Room Air Documenting provider has reviewed patient's vital signs: yes Course Vital Signs Vital signs: Initial Vital Signs Temperature 98.0 F 06/07/23 16:41 Temperature Source Temporal Artery Scan 06/07/23 16:41 Pulse Rate 101 H 06/07/23 16:41 Pulse Rhythm Regular 06/07/23 16:41 Pulse Strength 3+ Normal 06/07/23 16:41 Respiratory Rate 20 06/07/23 16:41 Blood Pressure 152/84 H 06/07/23 16:41 Blood Pressure Mean 106 H 06/07/23 16:41 Blood Pressure Position Sitting 06/07/23 16:41 Pulse Oximetry 100 06/07/23 16:41 Oxygen Delivery Method Room Air 06/07/23 16:41 Vital Signs Temperature 98.0 F 06/07/23 16:41 Pulse Rate 101 H 06/07/23 16:41 Respiratory Rate 20 06/07/23 16:41 Blood Pressure 152/84 H 06/07/23 16:41 Pulse Oximetry 100 06/07/23 16:41 Oxygen Delivery Method Room Air 06/07/23 16:41 Temperature 98.0 F 06/07/23 16:41 Pulse Rate 92 06/07/23 18:32 Respiratory Rate 14 06/07/23 18:32 Blood Pressure 123/53 L 06/07/23 18:32 Pulse Oximetry 94 06/07/23 18:32 Oxygen Delivery Method Room Air 06/07/23 16:41 Medications Administered Medications: Discontinued Medications Generic Name Dose Route Start Last Admin Trade Name Bree PRN Reason Stop Dose Admin Albuterol/Ipratropium 1 neb 06/07/23 17:38 06/07/23 17:45 Iprat-Albut 0.5-2.5 Mg/3 Ml Neb IH 06/07/23 17:39 1 neb ONCE ONE Administration Fluticasone Propionate 2 puff 06/07/23 21:00 06/07/23 19:43 Fluticasone Propionate 220 1 Puff IH 2 puff BID NILE Administration Prednisone 40 mg 06/07/23 19:51 06/07/23 19:57 Prednisone 20 Mg Tablet PO 06/07/23 19:52 40 mg ONCE ONE Administration Medical Decision Making MDM Narrative Medical decision making narrative: Other than some mild tachycardia on arrival her vitals look quite good. I do not know if this is due to albuterol up. Understandable concerns of pulmonary embolus. She is on full-dose Eliquis. No pleuritic pain. She arrives satting 100% on room air otherwise we are talking does drift down to 94-95%. Is not in respiratory distress. I suspect allergies and lack of usual medication contributing to this shortness of breath. Does not seem to have an infectious etiology otherwise. After longer discussion propose trial of DuoNeb and reassessment. DuoNeb given. She does feel that this helped and relieved some of the pressure that she was feeling. Oxygen saturations are stable. Heart rate no longer tachycardic. Attempted to locate Advair equivalent. Ultimately prescribed fluticasone MDI from our pharmacy as stop gap measure. Do not have equivalent long-acting beta agonist at this time. I think will need formal assessment again of pulmonary function at some point. See patient discharge plan for further discussion Medical Records Medical records reviewed: Yes I reviewed the patient's medical records Discharge Plan Discharge Clinical Impression: Asthma exacerbation, Dyspnea Patient Disposition: Home, Self-Care Condition: Improved Additional Instructions: Over the next 3 days would use your albuterol 3-4 times daily as the steroids take affect. Unfortunately the albuterol will have to be the stop-gap until you can get back on your usual Advair. Use this fluticasone metered dose inhaler as substitute for the steroid in your Advair. Inhale this twice daily. And yes, I would suggest rinsing your mouth after inhalation but I know you ?have not had a problem? :) You can take the prednisone all in one dose daily or split the dose into twice daily dosing. I would take your oral antihistamine daily for now and maybe even use your nasal steroid spray. I understand you have follow-up next week. Otherwise be seen for persistent, increasing shortness of breath or chest pain, evolution of fever. best wishes on all of this coming up for you. hopefully you can get away sometime. Prescriptions: No Action albuterol sulfate 90 mcg/actuation HFA aerosol inhaler 2 puff inhalation Q4H PRN (Reason: shortness of breath or wheezing) Qty: 8.5 2RF (DME) Diabetic Test Strips Misc See Rx Instructions .Route Rx Instructions: As directed (DME) lancets Misc See Rx Instructions .Route Rx Instructions: As directed Eliquis 5 mg tablet 5 mg PO BID Qty: 180 4RF fluticasone propion-salmeterol [Advair Diskus] 250-50 mcg/dose blister with device 1 inh INHALATION QDAY Qty: 60 12RF fluticasone propionate 50 mcg/actuation spray,suspension 2 spray INTRANASAL QDAY PRN (Reason: nasal congestion) Qty: 16 8RF glimepiride 1 mg tablet 2 mg PO QDAY Qty: 180 4RF Victoza 3-Nickolas 0.6 mg/0.1 mL (18 mg/3 mL) pen injector 1.8 mg SUBCUT QDAY Qty: 9 12RF lisinopril 2.5 mg tablet 2.5 mg PO QDAY Qty: 90 4RF omeprazole 20 mg capsule,delayed release(DR/EC) 20 mg PO QDAY Qty: 90 4RF paroxetine HCl 20 mg tablet 20 mg PO QDAY Qty: 90 4RF simvastatin 20 mg tablet 20 mg PO QPM Qty: 90 4RF prednisolone acetate 1 % drops,suspension Patient Comments: SHAKE LIQUID AND INSTILL 1 DROP IN BOTH EYES EVERY DAY lorazepam 0.5 mg tablet 0.5 mg PO QDAY PRN Patient Comments: TAKE 1 TABLET BY MOUTH DAILY NEEDED FOR SEVERE ANXIETY ONLY (DME) pen needle, diabetic [BD Sofiya 2nd Gen Pen Needle] 32 gauge x 5/32 needle MISCELLANEOUS Qty: 100 6RF Rx Instructions: As directed Follow Up/Referrals: Joan Aragon MD [Primary Care Provider] - Stand Alone Forms: [facility] Info Instructions
[2023-06-07] MEDS: IPRAT-ALBUT 0.5-2.5 MG/3 ML NEB 1 NEB IH (17:45)
[2023-06-07 18:02] VITALS: BP 106/67; PULSE 95; RESP 16; O2SAT 94
--- OUTSIDE RECORDS SUMMARY | 2023-06-07 18:21 | XMS_ITS | Encounter Summary ---
Author Name Unknown Organization [facility] Address [address] [place] [address] Care Team Providers Care In School Suspension Coordinator Name Role Phone Unavailable Primary Care Provider Unavailabl e Encounter Details Date Type Department Care Team (Late st Contact Info) Description 10/17/2012 Historical Ophthalmology [facility]ST [facility] Charlie Link M.D. Social History Tobacco Use Types Packs/Day Years Used Date Smoking Tobacco: Never Assessed Sex and Gender Information Value Date Recorded Sex Assigned at Female 12/08/2020 11:58 AM CDT Gender Identity Female 12/08/2020 11:58 AM CDT Sexual Orientation Straight 12/08/2020 11 :58 AM CDT documented as of this encounter Progress Notes * Charlie Link M.D. - 10/17/2012 9:06 AM CDT Eye General CHIEF COMPLAINT yearly check HISTORY OF PRESENT ILLNESS Patient denies vision changes over past year. Has difficulty reading with new glasses; needs to close left eye. Continues to have occasional flashes, left eye; no change in old floaters. Admits to not using Pred Forte every day. Blood sugar is controlled. 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
--- OUTSIDE RECORDS SUMMARY | 2023-06-07 18:21 | XMS_ITS ---
Author Name Unknown Organization [facility] Address [address] [place] [address] Care Team Providers Care Commercial Account Officer Name Role Phone Unavailable Unavailable Unavailable Surgery Details Not on file Complications Check Surgery Details section. Procedure Estimated Blood Loss Check Surgery Details section. Procedure Findings Check Surgery Details section. Procedure Specimens Taken Check Surgery Details section.
--- OUTSIDE RECORDS SUMMARY | 2023-06-07 18:21 | XMS_ITS | Clinical Summary ---
Author Name Unknown Organization [facility] [employer] Address [place], [place] [address] Care Team Providers Care Scanning Tech Name Role Phone Joan Aragon MD Primary Care Provider + Allergies Active Allergy Reactions Criticality Noted Date Comments Metformin Nausea And Vomiting 11/12/2018 Medications Medication Sig Dispensed Refills Start Date End Date Status omeprazole (PRILOSEC) 20 mg capsule Take 1 capsule by mouth once daily before a meal. 0 08/13/2011 Active albuterol HFA (PROAIR HFA) 90 mcg/actuation inhalerIndications :Cough Inhale 2 Puffs by mouth 4 times daily if needed for Shortness Of Breath or Wheezing. 1 Inhaler 0 04/19/2014 Active simvastatin (ZOCOR) 20 mg tablet Take 1 tablet by mouth at bedtime. 0 10/29/2015 Active lisinopril (PRINIVIL; ZESTRIL) 2.5 mg tablet Take 1 tablet by mouth once daily. 0 12/02/2017 Active PARoxetine (PAXIL) 20 mg tablet Take 1 tablet by mouth every morning. 0 12/02/2017 Active LORazepam (ATIVAN) 0.5 mg tab TK 1 T PO D PRF SEVERE ANXIETY ONLY 0 01/21/2018 Active prednisoLONE acetate 1% ophthalmic (ECONOPRED PLUS, PRED FORTE, OMNIPRED) suspension INT 1 DROP IN OU D 12 04/04/2018 Active JB PEN NEEDLE 32 gauge x 5/32 U D UTD 3 05/30/2018 Active ADVAIR DISKUS 250-50 mcg/dose diskus inhaler Inhale 1 Puff by mouth every 12 hours. 1 Inhaler 4 01/07/2020 Active VICTOZA 2-KELLY 0.6 mg/0.1 mL (18 mg/3 mL) injection Inject 0.6 mg subcutaneous once daily. 3 mL 11 01/07/2020 Active primidone (MYSOLINE) 50 mg tablet Take 1 tablet by mouth once daily. 0 01/07/2020 Active apixaban (ELIQUIS DVT-PE TREAT 30D START) tablet in a dose pack Take 2 tablets by mouth 2 times daily. Take by mouth as directed on starter pack. 74 tablet 01/07/2020 Active Active Problems Problem Noted Date Diagnosed Date Vertebral artery stenosis 06/13/2018 Double vision 06/13/2018 Microscopic hematuria 01/25/2016 Asthma 04/22/2014 Infected sebaceous cyst 08/20/2013 Postmenopausal atrophic vaginitis 08/20/2013 Immunizations Name Administration Dates Next Due Influenza Virus, Unspecified 10/27/2015,01/15/20 15 Influenza, High-dose Inactivated 11/16/2015,12/27 Influenza, IIV3 (Age 6-35 mos) 01/26/2014 Influenza, IIV3 (Age >=3 years) 01/04/20 13,11/22/2011,01/05/2011,2009 Influenza, Inactivated IIV3 (Age 65+ Years) Preserv Free 12/19/2017 Pneumococcal Poly,23-Valent (Pneumovax) 12/05/2015 Tdap 01/14/2015,01/14/2015 Tetanus/Diptheria 01/14/2015 Zoster (Zostavax-ZVL, live) 11/22/2011 Social History Tobacco Use Types Packs/Day Years Used Date Smoking Tobacco: Never Smokeless Tobacco: Never Tobacco Cessation:Counseling Given: Yes Alcohol Use Standard Drinks/Week Comments No 0 (1 standard drink = 0.6 oz pur e alcohol) Sex and Gender Information Value Date Recorded Sex Assigned at Not on file Gender Identity Not on file Sexual Orientation Not on file Obstetrics History Para Term AB IAB SAB Ectopic Multiple Livin g Live Births 3 3 3 Date Outcome GA Total Labor Labor/2nd/3rd Weight Sex Delivery Anes PTL Clarisa A1 A5 Name Cl in Term Term Term Last Filed Vital Signs Vital Sign Reading Time Taken Comments Blood Pressure 149/82 07/02/2018 2:58 PM CDT Pulse 83 07/02/2018 2:58 PM CDT Temperature 37 ??C (98.6 ??F) 07/02/2018 2:57 PM CDT Respiratory Rate 16 02/13/2016 2:08 PM RELAY ASSEMBLER Oxygen Saturation 96% 07/02/2018 2:57 PM CDT Inhaled Oxygen Concentration - - Weight 94.8 kg (209 lb) 01/07/2020 1:52 PM RELAY ASSEMBLER Height 165.1 cm (5' 5) 01/07/2020 1:52 PM RELAY ASSEMBLER Body Mass Index 34.78 01/07/2020 1:52 PM RELAY ASSEMBLER Plan of Treatment Health Maintenance Due Date Last Done Comments Depression screening for age 12+ 1956 Hepatitis C screening for ag e 18-79 1962 DEXA/DXA scan for age 65+ 2009 Medicare Wellness for age 65+ 2009 Zoster (shingles) series for age 50+ (2 of 3) 01/17/2012 11/22/2011 Pneumococcal series for age 65+ (2 of 2 - PCV) 12/04/2016 12/05/2015 BMI (ht and wt on same day) for age 18+ 01/06/2021 01/07/2020, 09/26/2016 COVID-19 vaccine series (2022- season) 2022 Influenza for age 65+ 10/27/2023 12/19/2017 , 11/16/2015, 10/27/2015, Additional history exists Tetanus booster 01/14/2025 01/14/2015, 01/14/2015 Tdap Completed 01/14/2015, 01/14/2015 Care Teams Scanning Tech Relationship Specialty Start Date End Date Joan Aragon MD [address] [place] [address] PCP - General Family Practice 01/25/16
--- OUTSIDE RECORDS SUMMARY | 2023-06-07 18:21 | XMS_ITS | Encounter Summary ---
Author Name Unknown Organization [facility] Address [address] [place] [address] Care Team Providers Care Soft Crab Shedder Name Role Phone Unavailable Primary Care Provider Unavailabl e Encounter Details Date Type Department Care Team (Late st Contact Info) Description 06/08/2011 Historical Ophthalmology [facility]ST [facility] Roberto Carlos Blanton M.D. [address] [place] [address] Social History Tobacco Use Types Packs/Day Years Used Date Smoking Tobacco: Never Assessed Sex and Gender Information Value Date Recorded Sex Assigned at Female 12/08/2020 11:58 AM CDT Gender Identity Female 12/08/2020 11:58 AM CDT Sexual Orientation Straight 12/08/2020 11 :58 AM CDT documented as of this encounter Progress Notes * Roberto Carlos Blanton M.D. - 06/08/2011 2:16 PM CDT Eye General CHIEF COMPLAINT follow up Hemorrhagic PVD left eye HISTORY OF PRESENT ILLNESS Patient here for follow up of a Hemorrhagic PVD left eye. Patient notes a slight improvement in thevision; left eye. She states the red/brown crescent has move up in her field of vision and is not as sharp as it was. Continues to note a chaves vail; left eye; but it is not as prominent and has more spaces now. No changes to report right eye. KNK: floaters are less distinct, veil less dense. Denies curtain or shadow. IMPRESSION / REPORT / PLAN #1 Hemorrhagic PVD left eye No tear with scleral depression. Discussed s/s of retinal detachment. Patient agreed to return sooner if having these symptoms. Resume followup with Dr. Link as previously scheduled. #2 Lattice degeneration left eye #3 s/p DSEK, left eye Scheduled to see Dr. Link in 2 weeks for follow-up appt. 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
--- OUTSIDE RECORDS SUMMARY | 2023-06-07 18:21 | XMS_ITS | Encounter Summary ---
Author Name Unknown Organization [facility] Address [address] [place] [address] Care Team Providers Care Social Work Faculty Member Name Role Phone Unavailable Primary Care Provider Unavailabl e Encounter Details Date Type Department Care Team (Late st Contact Info) Description 11/26/2011 Historical Ophthalmology [facility]ST [facility] Charlie Link M.D. Social History Tobacco Use Types Packs/Day Years Used Date Smoking Tobacco: Never Assessed Sex and Gender Information Value Date Recorded Sex Assigned at Female 12/08/2020 11:58 AM CDT Gender Identity Female 12/08/2020 11:58 AM CDT Sexual Orientation Straight 12/08/2020 11 :58 AM CDT documented as of this encounter Progress Notes * Charlie Link M.D. - 11/26/2011 8:10 AM CDT Eye General CHIEF COMPLAINT Patient here for recheck, PVD. HISTORY OF PRESENT ILLNESS Patient still has light flashes on the left eye, just once in a while. 6 mos for DSEK LE . Vision feels stable. 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 Pred Forte to once a day in both eyes RV 6 mos for 1 yr visit LE> DIAGNOSIS #1 PVD left eye #2 Lattice degeneration left eye #3 fuchs CDM Reports - EYEGEN Id: [id number] Status: Fnl documented in this encounter Plan of Treatment Not on file documented as of this encounter Visit Diagnoses Not on filedocumented in this encounter
--- OUTSIDE RECORDS SUMMARY | 2023-06-07 18:21 | XMS_ITS | Encounter Summary ---
Author Name Unknown Organization [facility] Address [address] [place] [address] Care Team Providers Care Housekeeping Worker Name Role Phone Unavailable Primary Care Provider Unavailabl e Encounter Details Date Type Department Care Team (Late st Contact Info) Description 06/25/2011 Historical Ophthalmology [facility] Charlie Link M.D. Social History Tobacco Use Types Packs/Day Years Used Date Smoking Tobacco: Never Assessed Sex and Gender Information Value Date Recorded Sex Assigned at Female 12/08/2020 11:58 AM CDT Gender Identity Female 12/08/2020 11:58 AM CDT Sexual Orientation Straight 12/08/2020 11 :58 AM CDT documented as of this encounter Progress Notes * Charlie Link M.D. - 06/25/2011 8:28 AM CDT Eye General CHIEF COMPLAINT s/p DSEK and IOL LE; s/p PVD left eye HISTORY OF PRESENT ILLNESS Patient denies ocular pain. Has noted the main floaters has faded. Instead of seeing the chaves veil, I see black dots which I can see through. Seeing sun bursts; left eye as well. IMPRESSION / REPORT / PLAN #1 PVD left eye now OK except for floaters stable but pt is nervous and they bother Plan Explained nothing to do; vitrectomy high risk. 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 Can discontinue Ocuflox Decrease Pred Forte to once a day in the right eye DIAGNOSIS #1 PVD left eye #2 Lattice degeneration left eye #3 fuchs CDM Reports - EYEGEN Id: [id number] Status: Fnl documented in this encounter Plan of Treatment Not on file documented as of this encounter Visit Diagnoses Not on filedocumented in this encounter
--- OUTSIDE RECORDS SUMMARY | 2023-06-07 18:21 | XMS_ITS | Encounter Summary ---
Author Name Unknown Organization [facility] Address [address] [place] [address] Care Team Providers Care It Application Development Manager Name Role Phone Unavailable Primary Care Provider Unavailabl e Encounter Details Date Type Department Care Team (Late st Contact Info) Description 09/07/2011 Historical Ophthalmology [facility] Charlie Link M.D. Social History Tobacco Use Types Packs/Day Years Used Date Smoking Tobacco: Never Assessed Sex and Gender Information Value Date Recorded Sex Assigned at Female 12/08/2020 11:58 AM CDT Gender Identity Female 12/08/2020 11:58 AM CDT Sexual Orientation Straight 12/08/2020 11 :58 AM CDT documented as of this encounter Progress Notes * Cahrlie Link M.D. - 09/07/2011 8:52 AM CDT Eye General CHIEF COMPLAINT s/p DSEK and IOL LE; s/p PVD left eye HISTORY OF PRESENT ILLNESS Floaters are about the same left eye, for the past 2 months. . Vision left eye has improved slightly in the past 2 months. Patient denies ocular pain. 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 Can discontinue Ocuflox Decrease Pred Forte to once a day in the right eye DIAGNOSIS #1 PVD left eye #2 Lattice degeneration left eye #3 fuchs CDM Reports - EYEGEN Id: [id number] Status: Fnl documented in this encounter Plan of Treatment Not on file documented as of this encounter Visit Diagnoses Not on filedocumented in this encounter
--- OUTSIDE RECORDS SUMMARY | 2023-06-07 18:21 | XMS_ITS | Encounter Summary ---
Author Name Unknown Organization [facility] Address [address] [place] [address] Care Team Providers Care Abrasive Grader Name Role Phone Unavailable Primary Care Provider Unavailabl e Encounter Details Date Type Department Care Team (Late st Contact Info) Description 05/28/2011 Historical Ophthalmology [facility]ST [facility] Roberto Carlos Blanton M.D. [address] [place] [address] Social History Tobacco Use Types Packs/Day Years Used Date Smoking Tobacco: Never Assessed Sex and Gender Information Value Date Recorded Sex Assigned at Female 12/08/2020 11:58 AM CDT Gender Identity Female 12/08/2020 11:58 AM CDT Sexual Orientation Straight 12/08/2020 11 :58 AM CDT documented as of this encounter Progress Notes * Roberto Carlos Blanton M.D. - 05/28/2011 1:12 PM CDT Eye General CHIEF COMPLAINT Hemorrhagic PVD; left eye HISTORY OF PRESENT ILLNESS Patient is here for Hemorrhagic PVD; left eye; patient states vision is stable since last exam on Saturday. Denies ocular pain. Flashes; left eye; in periphery; off and on. Floaters; left eye; constantly. Patient notes red/brown cresent is gone. Notes chaves vail; left eye. No other vision concerns. KNK: Floaters are slightly improved, still seeing veils. No new flashes, no curtains. IMPRESSION / REPORT / PLAN #1 Hemorrhagic PVD left eye No tear with gentle scleral depression. Careful follow-up. RTC 7-10 days with bilateral dilated exam. Discussed s/s of retinal detachment. Patient agreed to return sooner if having these symptoms. 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
--- OUTSIDE RECORDS SUMMARY | 2023-06-07 18:21 | XMS_ITS | Encounter Summary ---
Author Name Unknown Organization [facility] Address [address] [place] [address] Care Team Providers Care Foaming Machine Operator Name Role Phone Unavailable Primary Care Provider Unavailabl e Encounter Details Date Type Department Care Team (Late st Contact Info) Description 03/11/2009 Historical Ophthalmology [facility] Charlie Link M.D. Social History Tobacco Use Types Packs/Day Years Used Date Smoking Tobacco: Never Assessed Sex and Gender Information Value Date Recorded Sex Assigned at Female 12/08/2020 11:58 AM CDT Gender Identity Female 12/08/2020 11:58 AM CDT Sexual Orientation Straight 12/08/2020 11 :58 AM CDT documented as of this encounter Progress Notes * Charlie Link M.D. - 03/11/2009 8:59 AM CST Eye General CHIEF COMPLAINT DSEK follow up RE HISTORY OF PRESENT ILLNESS no concerns per pt. although. images still look ghosted with the RE... also here to discuss doing surgery on the LE possibly now. IMPRESSION / REPORT / PLAN #1 [email or web address] Discussed surgery (DSEK and phaco, IOL LE) for left eye SHe wishes to proceed with DSEK, phaco, IOLleft eye 04/12. DIAGNOSIS #1 meme CDM Reports - EYEGEN Id: [id number] Status: Fnl documented in this encounter Plan of Treatment Not on file documented as of this encounter Visit Diagnoses Not on filedocumented in this encounter
--- OUTSIDE RECORDS SUMMARY | 2023-06-07 18:21 | XMS_ITS | Referral Summary ---
Author Name Unknown Organization [facility] Address [address] [place] [address] Care Team Providers Care Electrical Mechanical Technician Name Role Phone Unavailable Primary Care Provider Unavailabl e Source Comments Patient records contain information from all sites at [facility]. For routine questions regarding patient records, call [phone] during business hours, M-F 8:00 AM - 5:00 PM Central Time. Record requests for emergency care only can be directed to [phone] at any time.[facility] Allergies Active Allergy Reactions Criticality Noted Date Comments Bupropion GI intolerance Low 04/13/2022 Metformin GI intolerance 11/12/2018 Medications Medication Sig Dispensed Refills Start Date End Date Status albuterol (PROVENTIL HFA,VENTOLIN HFA) 90 mcg/actuation inhaler Inhale 2 puffs. 0 04/19/2014 Active fluticasone propion-salmeteroL 250-50 mcg/dose diskus inhaler INL 1 PUFF PO BID 0 04/02/2016 Act mario fluticasone propionate (FLONASE ALLERGY RELIEF) 50 mcg/actuation nasal spray Administer 1 puff into affected nostril(s) daily as needed. 0 04/19/2016 Active VICTOZA 3-KELLY 0.6 mg/0.1 mL (18 mg/3 mL) injection ADM 1.8 MG SC D 11 10/23/2018 Active lisinopril (PRINIVIL,ZESTRIL) 2.5 mg tablet TK 1 T PO D 3 09/04/2018 Active loratadine (CLARITIN) 10 mg tablet Take 1 tablet by mouth daily as needed. 0 04/19/2016 Active LORazepam (ATIVAN) 0.5 mg tablet TK 1 T PO D PRF SEVERE ANXIETY ONLY 0 01/21/2018 Active omeprazole (PriLOSEC) [address] capsule TK 1 C PO D 3 09/04/2018 Active PARoxetine (PAXIL) 20 mg tablet Take 20 mg by mouth. 0 12/02/2017 Active BD ULTRA-FINE JB PEN NEEDLE 32 gauge x 5/32 needle U D UTD 3 08/26/2018 Active prednisoLONE acetate (PRED FORTE) 1 % ophthalmic suspension INT 1 DROP IN OU D 0 04/19/2016 Active simvastatin (ZOCOR) 20 mg tablet TK 1 T PO HS 3 09/21/2018 Active Eliquis 5 mg tablet Take 5 mg by mouth 2 (two) times a day. 0 03/29/2020 Active DME CPAPIndications:Apnea Sleep Obstructive DME Order 1 each 11 03/14/2021 Active glimepiride (AMARYL) 1 mg tablet Take 2 mg by mouth daily with breakfast. 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 No 08/23/2022 Within the last year, have y ou been humiliated or emotionally abused in other ways by your partner or ex-partner? No Within the last year, have y ou been kicked, hit, slapped, or otherwise physically hurt by your partner or ex-partner? No 08/23/2022 Within the last year, have y ou been raped or forced to have any kind of sexual activity by your partner or ex-partner? No 08/23/2022 Social Connection and Isolat ion Panel [NHANES] Answer Date Recorded In a typical week, how many times do you talk on the phone with family, friends, or neighbors? More than three times a week 02/28/2022 How often do you get togethe r with friends or relatives? Once a week 02/28/2022 How often do you attend chur ch or episcopalian services? Never 02/28/2022 Do you belong to any clubs o r organizations such as voodoo groups, unions, fraternal or athletic groups, or school groups? No 02/28/2022 How often do you attend meet ings of the clubs or organizations you belong to? Never 02/28/2022 Are you , , di vorced, , never , or living with a partner? 02/28/2022 AUDIT-C Answer Date Recorded Q1: How often do you have a drink containing alc ohol? Never 02/28/2022 Average Number of Drinks Not on file 023 Frequency of Binge Drinking Not on file 05/2022 Overall Financial Resource Strain (CARDIA) Answe r Date Recorded How hard is it for you to pa y for the very basics like food, housing, medical care, and heating? Not hard at all 08/23/2022 [facility] - Occupational Stress Questionnaire Answer Date Recorded Do you feel stress - tense, restless, nervous, or anxious, or unable to sleep at night because your mind is troubled all the time - these days? To some extent 02/28/2022 Exercise Vital Sign Answer Date Recorde d On average, how many days pe r week do you engage in moderate to strenuous exercise (like a brisk walk)? 0 days 02/28/2022 On average, how many minutes do you engage in exercise at this level? 0 min 02/28/2022 Hunger Vital Sign Answer Date Recorded Within the past 12 months, y ou worried that your food would run out before you got the money to buy more. Never true 08/24/19 23 Within the past 12 months, t he food you bought just didn't last and you didn't have money to get more. Never true 08/23/2022 PRAPARE - Transportation Answer Date Re corded In the past 12 months, has l ack of transportation kept you from medical appointments or from getting medications? No 07/27 In the past 12 months, has l ack of transportation kept you from meetings, work, or from getting things needed for daily living? No 08/23/2022 Nutrition Answer Date Recorded Nutrition: EVOO Fat Source Yes 02/28 On average, how many serving s of fruits and vegetables do you eat per day (serving size is equal to 1 cup or approximately the size of a tennis ball)? 2-3 02/28/2022 Dental Answer Date Recorded Dental: Regular Dentist Yes 02/23/20 Employment Answer Date Recorded Employment status Retired 02/28/2022 Housing Stability Answer Date Recorded What is your living situation today? I have a [facility] place to live 08/23/2022 Education Answer Date Recorded What is the highest level of school you have completed or the highest degree you have received? Bachelor's degree (e.g., BA, AB, BS) 05/30/2020 Sex and Gender Information Value Date Recorded Sex Assigned at Female 12/08/2020 11:58 AM CDT Gender Identity Female 12/08/2020 11:58 AM CDT Sexual Orientation Straight 12/08/2020 11 :58 AM CDT Last Filed Vital Signs Vital Sign Reading Time Taken Comments Blood Pressure 112/79 08/30/2022 1:44 PM CDT Pulse 80 08/30/2022 1:44 PM CDT Temperature 35.9 ??C (96.6 ??F) 03/05/2022 1 0:24 AM QUALITY SYSTEM MANAGER Respiratory Rate 18 04/21/2016 1:56 PM QUALITY SYSTEM MANAGER Value from [employer]. Oxygen Saturation - - Inhaled Oxygen Concentration - - Weight 91.5 kg (201 lb 11.5 oz) 08/30/2022 1:44 PM CDT Height 165.8 cm (5' 5.28) 03/05/2022 1 0:24 AM QUALITY SYSTEM MANAGER Body Mass Index 33.28 03/05/2022 10:24 AM QUALITY SYSTEM MANAGER Plan of Treatment Not on file Medical Devices Implanted Type Area [facility] And Wellness Advisor Device Identifier Shelf Expiration Date Model / Serial / Lot Standard-Screw Rodrigo 4.5 X 50 - [place] [id number] Implanted:Qty: 1 on 11/22/2015 Hardware e.g. pins/screws /rods Depuy Synthes Description:Device Manufactu rer - Synthes. Device Status Text - [id number]. Standard-Screw Rodrigo 4.5 X 30 - [place] [id number] Implanted:Qty: 2 on 11/22/2015 Hardware e.g. pins/screws /rods Depuy Synthes Description:Device Manufactu rer - Synthes. Device Status Text - [id number]. Standard-Screw Rodrigo 4.5 X 32 - Forrest [id number] Implanted:Qty: 1 on 11/22/2015 Hardware e.g. pins/screws /rods Depuy Synthes Description:Device Manufactu rer - Synthes. Device Status Text - [id number]. Standard-Screw Rodrigo 4.5 X 40 - Forrest [id number] Implanted:Qty: 1 on 11/22/2015 Hardware e.g. pins/screws /rods Depuy Synthes Description:Device Manufactu rer - Synthes. Device Status Text - HARDWARE-48143. Dcp-Plate T 6ho - Forrest [id number] Implanted:Qty: 1 on 11/22/2015 Hardware e.g. pins/screws /rods Depuy Synthes Description:Device Manufactu rer - Synthes. Device Status Text - HARDWARE-57660. Triathlon-Femor al Modular Peg - Forrest [id number] Implanted:Qty: 1 on 11/22/2015 Knee Implant Other/Legacy - See Implant Description [place] Description:Device Manufactu rer - [employer]ione Rudy.. Body Location - Other. Left. Device Status Text - KNEE [id number]. Triathlon-Tibia l Comp #4 Ps 9mm - Forrest [id number] Implanted:Qty: 1 on 11/22/2015 Knee Implant Other/Legacy - See Implant Description [place] Description:Device Manufactu rer - [place] Rudy.. Body Location - Other. Not Applicable. Device Status Text - KNEE [id number]. Triathlon-Inser t X3 Tib 9mm #4 - Forrest [id number] Implanted:Qty: 1 on 11/22/2015 Knee Implant Other/Legacy - See Implant Description [employer] Description:Device Manufactu rer - [employer]ione Rudy.. Body Location - Other. Left. Device Status Text - KNEE [id number]. Triathlon-Tibia l Baseplate Lamoni #4 - Forrest [id number] Implanted:Qty: 1 on 11/22/2015 Knee Implant Other/Legacy - See Implant Description [employer] Description:Device Manufactu rer - [place] Rudy.. Body Location - Other. Left. Device Status Text - KNEE [id number]. Triathlon-Stem Alex. Exten. 12 X 50mm - Forrest [id number] Implanted:Qty: 1 on 11/22/2015 Knee Implant Other/Legacy - See Implant Description [employer] Description:Device Manufactu rer - Antione Rudy.. Body Location - Other. Left. Device Status Text - KNEE [id number]. Triathlon-Femor al Cemented #5 Lt - Forrest [id number] Implanted:Qty: 1 on 11/22/2015 Knee Implant Other/Legacy - See Implant Description [employer] Description:Device Manufactu rer - [place] Rudy.. Body Location - Other. Left. Device Status Text - KNEE [id number]. Triathlon-Femor al Modular Peg - Forrest [id number] Implanted:Qty: 1 on 04/19/2016 Knee Implant Other/Legacy - See Implant Description [place] Description:Device Manufactu rer - [place] Rudy.. Body Location - Other. Right. Device Status Text - KNEE [id number]. Triathlon-Tibia l Baseplate Lamoni #4 - Forrest [id number] Implanted:Qty: 1 on 04/19/2016 Knee Implant Other/Legacy - See Implant Description [place] Description:Device Manufactu rer - Antione Rudy.. Body Location - Other. Right. Device Status Text - KNEE [id number]. Triathlon-Femor al Cemented #5 Rt - [place] [id number] Implanted:Qty: 1 on 04/19/2016 Knee Implant Other/Legacy - See Implant Description [employer] Description:Device Manufactu rer - Antione Rudy.. Body Location - Other. Right. Device Status Text - KNEE [id number]. Triathlon-Inser t X3 Tib 9mm #4 - [place] [id number] Implanted:Qty: 1 on 04/19/2016 Knee Implant Other/Legacy - See Implant Description [employer] Description:Device Manufactu rer - [place] Rudy.. Body Location - Other. Right. Device Status Text - KNEE [id number]. Plug Bone Lamoni 24mm - [place] [id number] Implanted:Qty: 1 on 11/22/2015 Mesh or Patch [place] Description:Device Manufactu rer - Antione Rudy.. Device Status Text - MESHPATCH-470. Cement Bone Large - [place] [id number] Implanted:Qty: 3 on 11/22/2015 [facility] [place] Other [place] Description:Device Manufactu rer - Antione Rudy.. Device Status Text - MISCOTHER-2840. Cement Bone Large - [place] [id number] Implanted:Qty: 2 on 04/19/2016 [facility] [place] Other [place] Description:Device Manufactu rer - Antione Rudy.. Device Status Text - MISCOTHER-2840. Cornea - [place] [id number] Implanted:Qty: 1 on 08/31/2008 Ocular (Eye) Implant Right: Other/Legacy - See Implant Description [facility] Eye [facility] Description:Device Manufactu rer - [facility] Eye [facility]. Body Location - Right. Device Status Text - [id number]. Cornea - [place] [id number] Implanted:Qty: 1 on 05/15/2011 Ocular (Eye) Implant Left: Other/Legacy - See Implant Description [facility] Eye [facility] Description:Device Manufactu rer - [facility] Eye Bank. Body Location - Left. Device Status Text - [id number]. Lens 6.0x21.5 Pc15gc-11.5 - Forrest [id number] Implanted:Qty: 1 on 08/31/2008 Ocular Lens Right: Other/Legacy - See Implant Description [employer] Description:Device Manufactu rer - [employer]. Body Location - Right. Device Status Text - [id number]. Lens 6.0x21.5 Xu34su-33.5 - [place] [id number] Implanted:Qty: 1 on 05/15/2011 Ocular Lens Left: Other/Legacy - See Implant Description [employer] Description:Device Manufactu rer - [employer]. Body Location - Left. Device Status Text - [id number]. Advance Directives For more information, please contact: [phone] Documents on File Type Date Recorded Patient Price Checker Expl anation Advance Directives 05/15/2011 12:00 AM Leg acy document. See document viewer. Advance Directives 05/15/2011 12:00 AM Leg acy document. See document viewer.
--- OUTSIDE RECORDS SUMMARY | 2023-06-07 18:21 | XMS_ITS | Encounter Summary ---
Author Name Unknown Organization [facility] Address [address] [place] [address] Care Team Providers Care [employer] Retailer Sales Consultant Name Role Phone Unavailable Primary Care Provider Unavailabl e Encounter Details Date Type Department Care Team (Late st Contact Info) Description 12/14/2010 Historical Ophthalmology [facility] Charlie Link M.D. Social History Tobacco Use Types Packs/Day Years Used Date Smoking Tobacco: Never Assessed Sex and Gender Information Value Date Recorded Sex Assigned at Female 12/08/2020 11:58 AM CDT Gender Identity Female 12/08/2020 11:58 AM CDT Sexual Orientation Straight 12/08/2020 11 :58 AM CDT documented as of this encounter Progress Notes * Charlie Link M.D. - 12/14/2010 1:37 PM CDT Eye General CHIEF COMPLAINT DSEK follow up RE HISTORY OF PRESENT ILLNESS Blurred vision; left eye; x several years; constantly; symptoms are moderate. Lot blurriere in AM then PM and takes much longer to recover in day. Noticing marked difference i quality right vs left and wants DSEK on opposite eye. Needing to get her other eye done, DSEK and IOL. Things going very well with the right eye after surgery. Denies scratchiness and pain in her eyes. IMPRESSION / REPORT / PLAN #1 meme Discussed surgery (DSEK and phaco, IOL LE) for left eye SHe wishes to proceed with DSEK, phaco, IOLleft eye as taking much longer to see well, obvious mocrocystic edema even in mid afternoon, trouble with night driving from [place]. 21.5 D IOL DIAGNOSIS #1 meme CDM Reports - EYEGEN Id: [id number] Status: Fnl documented in this encounter Plan of Treatment Not on file documented as of this encounter Visit Diagnoses Not on filedocumented in this encounter
--- OUTSIDE RECORDS SUMMARY | 2023-06-07 18:21 | XMS_ITS | Encounter Summary ---
Author Name Unknown Organization [facility] Address [address] [place] [address] Care Team Providers Care Service Attendant Name Role Phone Unavailable Primary Care Provider Unavailabl e Encounter Details Date Type Department Care Team (Late st Contact Info) Description 06/07/2011 Historical Ophthalmology [facility]ST [facility] Charlie Link M.D. Social History Tobacco Use Types Packs/Day Years Used Date Smoking Tobacco: Never Assessed Sex and Gender Information Value Date Recorded Sex Assigned at Female 12/08/2020 11:58 AM CDT Gender Identity Female 12/08/2020 11:58 AM CDT Sexual Orientation Straight 12/08/2020 11 :58 AM CDT documented as of this encounter Progress Notes * Charlie Link M.D. - 06/07/2011 9:50 AM CDT Eye Postoperative MULTI-VISIT DOCUMENT This document contains multiple patient visits and is available for review in Document Viewer. CDM Reports - EYEPO Id: [id number] Status: Fnl documented in this encounter Plan of Treatment Not on file documented as of this encounter Visit Diagnoses Not on filedocumented in this encounter
--- OUTSIDE RECORDS SUMMARY | 2023-06-07 18:21 | XMS_ITS | Clinical Summary ---
Author Name Unknown Organization [facility] Address [address] [place] [address] Care Team Providers Care Resort Host Name Role Phone Unavailable Primary Care Provider Unavailabl e Source Comments Patient records contain information from all sites at [facility]. For routine questions regarding patient records, call [phone] during business hours, M-F 8:00 AM - 5:00 PM Central Time. Record requests for emergency care only can be directed to [phone] at any time.[facility] Allergies Active Allergy Reactions Criticality Noted Date [...] dose (65 years or older) (PF) 02/2015 Family History Medical History Relation Name Comments Hypertension Mother Macular degeneration Mother Stroke Mother Amblyopia Neg Hx Blindness Neg Hx Cancer Neg Hx Cataracts Neg Hx Diabetes Neg Hx Glaucoma Neg Hx Retinal degeneration Neg Hx Retinal detachment Neg Hx Strabismus Neg Hx Thyroid disease Neg Hx Vision loss Neg Hx Relation Name Status Comments Mother Social History Tobacco Use Types Packs/Day Years [...] often do you attend chur ch or taoism services? Never 02/28/2022 Do you belong to any clubs o r organizations such as anabaptism groups, unions, fraternal or athletic groups, or [...] and heating? Not hard at all 08/23/2022 [facility] - Occupational Stress Questionnaire Answer Date [...] your living situation today? I have a [facility] place to live 08/23/2022 Education Answer [...] ??C (96.6 ??F) 03/05/2022 1 0:24 AM LEAD CASE MANAGER Respiratory Rate 18 04/21/2016 1:56 PM LEAD CASE MANAGER Value from [employer]. Oxygen Saturation - - Inhaled Oxygen Concentration - - Weight 91.5 kg (201 lb 11.5 oz) 08/30/2022 1:44 PM CDT Height 165.8 cm (5' 5.28) 03/05/2022 1 0:24 AM LEAD CASE MANAGER Body Mass Index 33.28 03/05/2022 10:24 AM LEAD CASE MANAGER Plan of Treatment Health Maintenance Due Date Last Done Comments Diabetic Office Visit with F oot Exam 1945 Hepatitis C Screening 1945 Urine Albumin 1945 Hepatitis B Vaccines (1 of 3 - Risk 3-dose series) 2004 Hemoglobin A1C 11/15/2011 05/15/2011 Potassium Level 04/21/2017 04/21/2016, 03/29, 04/20/2016, Additional history exists Sodium Level 04/21/2017 04/21/2016, 03/29, 04/20/2016, Additional history exists Creatinine Level (Kidney Fun ction Test) 06/21/2019 06/20/2018, 04/21/2016, 04/20/2016, Additional history exists Dilated Eye Exam 02/09/2022 02/09/2021, 01/03/2009 Depression Screening (Annual PHQ-2) 02/25/2023 Fall Risk Screen (Annual) 02/25/2023 Office Visit for Blood Press ure Check / Re-check 08/31/2023 08/30/2022 DTaP,Tdap,and Td Vaccines (2 - Td or Tdap) 01/14/2025 01/14/2015 Pneumococcal vaccine (65+ years) Completed 12/05/19 16, 01/14/2015 Zoster Vaccines Completed 07/11/2022, 02/2018, 11/22/2011 COVID-19 Vaccine Completed 12/20/2022, , 08/01/2021, Additional history exists Influenza Vaccine Completed 12/20/2022, , 02/07/2021, Additional history exists Medical Devices Implanted Type Area Public Relations Professional Device Identifier Shelf Expiration Date Model / Serial / Lot Standard-Screw Rodrigo 4.5 X 50 - [place] [id number] Implanted:Qty: 1 on 11/22/2015 Hardware e.g. pins/screws /rods Depuy Synthes Description:Device Manufactu rer - [employer]. Device Status Text - [id number]. Standard-Screw Rodrigo 4.5 X 30 - [place] [id number] Implanted:Qty: 2 on 11/22/2015 Hardware e.g. pins/screws /rods Depuy Synthes Description:Device Manufactu rer - [employer]. Device Status Text - [id number]. Standard-Screw Rodrigo 4.5 X 32 - [place] [id number] Implanted:Qty: 1 on 11/22/2015 Hardware e.g. pins/screws /rods Depuy Synthes Description:Device Manufactu rer - Synthes. Device Status Text - HARDWARE-31770. Standard-Screw Rodrigo 4.5 X 40 - [place] [id number] Implanted:Qty: 1 on 11/22/2015 Hardware e.g. pins/screws /rods Depuy Synthes Description:Device Manufactu rer - Synthes. Device Status Text - HARDWARE-40612. Dcp-Plate T 6ho - [place] [id number] Implanted:Qty: 1 on 11/22/2015 Hardware e.g. pins/screws /rods Depuy Synthes Description:Device Manufactu rer - Synthes. Device Status Text - HARDWARE-80558. Triathlon-Femor al Modular Peg - Forrest [id number] Implanted:Qty: 1 on 11/22/2015 Knee Implant Other/Legacy - See Implant Description [place] Description:Device Manufactu rer - [place] Rudy.. Body Location - Other. Left. Device Status Text - KNEE [id number]. Triathlon-Tibia l Comp #4 Ps 9mm - Forrest [id number] Implanted:Qty: 1 on 11/22/2015 Knee Implant Other/Legacy - See Implant Description Antione Description:Device Manufactu rer - Antione Rudy.. Body Location - Other. Not Applicable. Device Status Text - KNEE [id number]. Triathlon-Inser t X3 Tib 9mm #4 - [place] [id number] Implanted:Qty: 1 on 11/22/2015 Knee Implant Other/Legacy - See Implant Description Antione Description:Device Manufactu rer - [place] Rudy.. Body Location - Other. Left. Device Status Text - KNEE [id number]. Triathlon-Tibia l Baseplate Eden #4 - Forrest [id number] Implanted:Qty: 1 on 11/22/2015 Knee Implant Other/Legacy - See Implant Description [place] Description:Device Manufactu rer - Antione Rudy.. Body Location - Other. Left. Device Status Text - KNEE [id number]. Triathlon-Stem Alex. Exten. 12 X 50mm - Forrest [id number] Implanted:Qty: 1 on 11/22/2015 Knee Implant Other/Legacy - See Implant Description [place] Description:Device Manufactu rer - Antione Rudy.. Body Location - Other. Left. Device Status Text - KNEE [id number]. Triathlon-Femor al Cemented #5 Lt - Forrest [id number] Implanted:Qty: 1 on 11/22/2015 Knee Implant Other/Legacy - See Implant Description [place] Description:Device Manufactu rer - Antione Rudy.. Body Location - Other. Left. Device Status Text - KNEE [id number]. Triathlon-Femor al Modular Peg - [place] [id number] Implanted:Qty: 1 on 04/19/2016 Knee Implant Other/Legacy - See Implant Description Antione Description:Device Manufactu rer - Antione Rudy.. Body Location - Other. Right. Device Status Text - KNEE [id number]. Triathlon-Tibia l Baseplate Eden #4 - Forrest [id number] Implanted:Qty: 1 on 04/19/2016 Knee Implant Other/Legacy - See Implant Description [place] Description:Device Manufactu rer - [place] Rudy.. Body Location - Other. Right. Device Status Text - KNEE [id number]. Triathlon-Femor al Cemented #5 Rt - [place] [id number] Implanted:Qty: 1 on 04/19/2016 Knee Implant Other/Legacy - See Implant Description [place] Description:Device Manufactu rer - [place] Rudy.. Body Location - Other. Right. Device Status Text - KNEE [id number]. Triathlon-Inser t X3 Tib 9mm #4 - [place] [id number] Implanted:Qty: 1 on 04/19/2016 Knee Implant Other/Legacy - See Implant Description Antione Description:Device Manufactu rer - Antione Rudy.. Body Location - Other. Right. Device Status Text - KNEE [id number]. Plug Bone Eden 24mm - [place] [id number] Implanted:Qty: 1 on 11/22/2015 Mesh or Patch Antione Description:Device Manufactu rer - Antione Rudy.. Device Status Text - MESHPATCH-470. Cement Bone Large - [place] [id number] Implanted:Qty: 3 on 11/22/2015 Misc Other [place] Description:Device Manufactu rer - Antione Rudy.. Device Status Text - MISCOTHER-2840. Cement Bone Large - [place] [id number] Implanted:Qty: 2 on 04/19/2016 Misc Other Antione Description:Device Manufactu rer - Antione Rudy.. Device Status Text - MISCOTHER-2840. Cornea - [place] [id number] Implanted:Qty: 1 on 08/31/2008 Ocular (Eye) Implant Right: Other/Legacy - See Implant Description [facility] Description:Device Manufactu rer - [facility]. Body Location - Right. Device Status Text - [id number]. Cornea - [place] [id number] Implanted:Qty: 1 on 05/15/2011 Ocular (Eye) Implant Left: Other/Legacy - See Implant Description [facility] Description:Device Manufactu rer - [facility]. Body Location - Left. Device Status Text - [id number]. Lens 6.0x21.5 It43rz-69.5 - [place] [id number] Implanted:Qty: 1 on 08/31/2008 Ocular Lens Right: Other/Legacy - See Implant Description [employer] Description:Device Manufactu rer - [employer]. Body Location - Right. Device Status Text - [id number]. Lens 6.0x21.5 Ye47rd-38.5 - [place] [id number] Implanted:Qty: 1 on 05/15/2011 Ocular Lens Left: Other/Legacy - See Implant Description [employer] Description:Device Manufactu rer - [employer]. Body Location - Left. Device Status Text - [id number]-147314. Advance Directives For more information, please contact: [phone] Documents on File Type Date Recorded Patient Shot Bagger Expl anation Advance Directives 05/15/2011 12:00 AM Leg acy document. See document viewer. Advance Directives 05/15/2011 12:00 AM Leg acy document. See document viewer.
--- OUTSIDE RECORDS SUMMARY | 2023-06-07 18:21 | XMS_ITS | Encounter Summary ---
Author Name Unknown Organization [facility] Address [address] [place] [address] Care Team Providers Care Professor Of Sociology Name Role Phone Unavailable Primary Care Provider Unavailabl e Encounter Details Date Type Department Care Team (Late st Contact Info) Description 03/11/2009 Historical Ophthalmology RST OPH Kenyetta Atwood, C.O.A. Social History Tobacco Use Types Packs/Day Years Used Date Smoking Tobacco: Never Assessed Sex and Gender Information Value Date Recorded Sex Assigned at Female 12/08/2020 11:58 AM CDT Gender Identity Female 12/08/2020 11:58 AM CDT Sexual Orientation Straight 12/08/2020 11 :58 AM CDT documented as of this encounter Progress Notes * Kenyetta Atwood, C.O.A. - 03/11/2009 10:43 AM CST Eye Subsequent Visit HISTORY OF PRESENT ILLNESS Preop checklist: preop instructions given, glasses read, informed consent documented in Informed Consent (IC) section, CVI current. CDM Reports - EYESV Id: [id number] Status: Fnl documented in this encounter Plan of Treatment Not on file documented as of this encounter Visit Diagnoses Not on filedocumented in this encounter
--- OUTSIDE RECORDS SUMMARY | 2023-06-07 18:22 | XMS_ITS | Encounter Summary ---
Author Name Unknown Organization [facility] Address [address] [place] [address] Care Team Providers Care Envelope Folder Name Role Phone Unavailable Primary Care Provider Unavailabl e Encounter Details Date Type Department Care Team (Late st Contact Info) Description 12/03/2008 Historical Ophthalmology RST OPH Charlie Link M.D. Social History Tobacco Use Types Packs/Day Years Used Date Smoking Tobacco: Never Assessed Sex and Gender Information Value Date Recorded Sex Assigned at Female 12/08/2020 11:58 AM CDT Gender Identity Female 12/08/2020 11:58 AM CDT Sexual Orientation Straight 12/08/2020 11 :58 AM CDT documented as of this encounter Progress Notes * Charlie Link M.D. - 12/03/2008 10:13 AM CDT Eye General CHIEF COMPLAINT DSEK study HISTORY OF PRESENT ILLNESS vision seems a little worse- although she tested better today. IMPRESSION / REPORT / PLAN #1 keratopalsty Plan: Try increase PF to QID and add acular QID in case mild CME RV 1 mo. DIAGNOSIS #1 keratoplasty CDM Reports - EYEGEN Id: [id number] Status: Fnl documented in this encounter Plan of Treatment Not on file documented as of this encounter Visit Diagnoses Not on filedocumented in this encounter
--- OUTSIDE RECORDS SUMMARY | 2023-06-07 18:22 | XMS_ITS | Encounter Summary ---
Author Name Unknown Organization [facility] Address [address] [place] [address] Care Team Providers Care Ruching Machine Operator Name Role Phone Unavailable Primary Care Provider Unavailabl e Encounter Details Date Type Department Care Team (Late st Contact Info) Description 01/10/2007 Historical Ophthalmology RST OPH Charlie Link M.D. Social History Tobacco Use Types Packs/Day Years Used Date Smoking Tobacco: Never Assessed Sex and Gender Information Value Date Recorded Sex Assigned at Female 12/08/2020 11:58 AM CDT Gender Identity Female 12/08/2020 11:58 AM CDT Sexual Orientation Straight 12/08/2020 11 :58 AM CDT documented as of this encounter Progress Notes * Charlie Link M.D. - 01/10/2007 10:51 AM CST Eye General CHIEF COMPLAINT Patient here for evaluation of Fuchs dystrophy. HISTORY OF PRESENT ILLNESS Patient here for evaluation on Fuch's. Dx 21 years ago. Having morning bllur both eys for about 13 years. Still clears pretty fast and does pretty well most of the day. IMPRESSION / REPORT / PLAN #1 fuchs corneal dystrophy #2 cataract Plan Discussed in detail with patient Suggeste DSEK and Cataract with IOL some time in next 11.2 years as starting to get some stromal haze anteriorly now. She understands and wishes to DIAGNOSIS #1 fuchs corneal dystrophy #2 cataract CDM Reports - EYEGEN Id: [id number] Status: Fnl documented in this encounter Plan of Treatment Not on file documented as of this encounter Visit Diagnoses Not on filedocumented in this encounter
--- OUTSIDE RECORDS SUMMARY | 2023-06-07 18:22 | XMS_ITS | Encounter Summary ---
Author Name Unknown Organization [facility] Address [address] [place] [address] Care Team Providers Care Supervisor Packing Name Role Phone Unavailable Primary Care Provider Unavailabl e Encounter Details Date Type Department Care Team (Late st Contact Info) Description 10/20/2008 Historical Ophthalmology RST OPH Charlie Link M.D. Social History Tobacco Use Types Packs/Day Years Used Date Smoking Tobacco: Never Assessed Sex and Gender Information Value Date Recorded Sex Assigned at Female 12/08/2020 11:58 AM CDT Gender Identity Female 12/08/2020 11:58 AM CDT Sexual Orientation Straight 12/08/2020 11 :58 AM CDT documented as of this encounter Progress Notes * Charlie Link M.D. - 10/20/2008 11:46 AM CDT Eye Postoperative MULTI-VISIT DOCUMENT This document contains multiple patient visits and is available for review in Document Viewer. CDM Reports - EYEPO Id: [id number] Status: Fnl documented in this encounter Plan of Treatment Not on file documented as of this encounter Visit Diagnoses Not on filedocumented in this encounter
--- OUTSIDE RECORDS SUMMARY | 2023-06-07 18:22 | XMS_ITS | Encounter Summary ---
Author Name Unknown Organization [facility] Address [address] [place] [address] Care Team Providers Care Pediatric Np Name Role Phone Unavailable Primary Care Provider Unavailabl e Encounter Details Date Type Department Care Team (Late st Contact Info) Description 07/15/2008 Historical Ophthalmology RST OPH Lurdes Clark C.O.A. [address] [place] [address] Social History Tobacco Use Types Packs/Day Years Used Date Smoking Tobacco: Never Assessed Sex and Gender Information Value Date Recorded Sex Assigned at Female 12/08/2020 11:58 AM CDT Gender Identity Female 12/08/2020 11:58 AM CDT Sexual Orientation Straight 12/08/2020 11 :58 AM CDT documented as of this encounter Progress Notes * Lurdes Clark C.O.A. - 07/15/2008 4:18 PM CDT Eye Subsequent Visit HISTORY OF PRESENT ILLNESS Preop checklist: preop instructions given, glasses read, sent for IOL measurements, informed consent documented in Informed Consent (IC) section, preop exam to be scheduled. [place] CDM Reports - EYESV Id: [id number] Status: Fnl documented in this encounter Plan of Treatment Not on file documented as of this encounter Visit Diagnoses Not on filedocumented in this encounter
--- OUTSIDE RECORDS SUMMARY | 2023-06-07 18:22 | XMS_ITS | Encounter Summary ---
Author Name Unknown Organization [facility] Address [address] [place] [address] Care Team Providers Care Product Architect Name Role Phone Unavailable Primary Care Provider Unavailabl e Encounter Details Date Type Department Care Team (Late st Contact Info) Description 01/03/2009 Historical Ophthalmology RST OPH Charlie Link M.D. Social History Tobacco Use Types Packs/Day Years Used Date Smoking Tobacco: Never Assessed Sex and Gender Information Value Date Recorded Sex Assigned at Female 12/08/2020 11:58 AM CDT Gender Identity Female 12/08/2020 11:58 AM CDT Sexual Orientation Straight 12/08/2020 11 :58 AM CDT documented as of this encounter Progress Notes * Charlie Link M.D. - 01/03/2009 8:29 AM CST Eye General CHIEF COMPLAINT DSEK follow up HISTORY OF PRESENT ILLNESS vision seems better 4 mo DSEK IMPRESSION / REPORT / PLAN OCT: NO sign of edema #1 keratopalsty no sign of CME Plan Stop acular reduce PF to once a day. RV 2 mos. IF stable RE can consider DSAEK phaco LE> DIAGNOSIS #1 keratopalsty CDM Reports - EYEGEN Id: [id number] Status: Fnl documented in this encounter Plan of Treatment Not on file documented as of this encounter Visit Diagnoses Not on filedocumented in this encounter
--- OUTSIDE RECORDS SUMMARY | 2023-06-07 18:22 | XMS_ITS | Encounter Summary ---
Author Name Unknown Organization [facility] Address [address] [place] [address] Care Team Providers Care Principal Technical Architect Name Role Phone Unavailable Primary Care Provider Unavailabl e Encounter Details Date Type Department Care Team (Late st Contact Info) Description 07/15/2008 Historical Ophthalmology RST OPH Charlie Link M.D. Social History Tobacco Use Types Packs/Day Years Used Date Smoking Tobacco: Never Assessed Sex and Gender Information Value Date Recorded Sex Assigned at Female 12/08/2020 11:58 AM CDT Gender Identity Female 12/08/2020 11:58 AM CDT Sexual Orientation Straight 12/08/2020 11 :58 AM CDT documented as of this encounter Progress Notes * Charlie Link M.D. - 07/15/2008 2:48 PM CDT Eye General CHIEF COMPLAINT Recheck Fuch's dystrophy. HISTORY OF PRESENT ILLNESS The patient describes increased blurred vision in both eyes for the past 1 years which is intermittent. Increased cloudy vision when first awakens. Denies ocular discomfort, flashing lights. History of floaters. IMPRESSION / REPORT / PLAN #1 fuchs corneal dystrophy #2 cataract Progressed over past 2 years. Plan Discussed in detail with patient Suggeste DSEK and Cataract with IOL some time soon as stromalhaze anteriorly more pronounced than 2 years ago. Possibiliity that may need PTK after if hazze interferes with visual result. She understands and wishes to have DSEK, Phaco, IOL DIAGNOSIS #1 fuchs corneal dystrophy #2 cataract CDM Reports - EYEGEN Id: [id number] Status: Fnl documented in this encounter Plan of Treatment Not on file documented as of this encounter Visit Diagnoses Not on filedocumented in this encounter
[2023-06-07 18:32] VITALS: BP 123/53; PULSE 92; RESP 14; O2SAT 94
[2023-06-07] MEDS: predniSONE 20 MG TABLET 40 MG PO (19:57)
== END 2023-06-07 20:34 | disposition home or self-care (01) ==
PROVIDERS: Emergency Provider Family Medicine; PCP Family Medicine
DX: J45.901 Unspecified asthma with (acute) exacerbation (principal); R06.00 Dyspnea, unspecified
CPT/HCPCS: 94640; 99283; 99284; A9270; J7512

== ENCOUNTER 2023-06-24 21:05 | Emergency (ER) | payer MEDICARE, BC, SELFPAY ==
[2023-06-24 21:15] VITALS: BP 91/68; PULSE 97; RESP 20; TEMP 36.1; O2SAT 95; BMI 33.5
--- NOTE | 2023-06-24 21:42 | CT_ITS ---
Patient: SATURNINO Adams MONTCHANIN Facility:?[facility] RIS Patient ID:?[id number] Site Patient ID:?[id number]. Site :?[id number] Study:?CT-Head W/O-06/24/2023 10:30:39 PM Ordering Physician:ELLEN Final Report: INDICATION: Headache. TECHNIQUE: CT head without contrast. COMPARISON: 10/15/2021. FINDINGS: CSF spaces: Proportionate prominence of the ventricles and sulci, reflecting mild generalized cerebral volume loss. Brain parenchyma: The chaves-white differentiation is maintained. Patchy white matter low attenuation changes, nonspecific but likely reflecting chronic small vessel ischemic disease. No sign of mass, hemorrhage, or midline shift. Atherosclerotic calcifications of the cavernous carotids and carotid siphons. Skull base and calvarium: Severe opacification of the left frontal, ethmoid, and sphenoid sinuses. Moderate mucosal thickening right maxillary sinus. Mastoid air cells are clear. The visualized orbits are grossly unremarkable. Right posterolateral scalp ossifications/calcification, unchanged. IMPRESSION: No acute intracranial abnormality. Please note that all CT scans at this facility use dose modulation, iterative reconstruction, and/or weight-based dosing when appropriate to reduce radiation dose to as low as reasonably achievable. Dictated by Favio Murphy MD @ 06/24/2023 11:16:26 PM Signed by:?Favio Murphy MD @06/24/2023 11:16:26 PM (Electronic Signature)
--- NOTE | 2023-06-24 21:43 | ED.HA ---
HPI - Headache General Chief Complaint: Headache/Migraine Stated Complaint: Migraines Time Seen by Provider: 06/24/23 21:11 History of Present Illness HPI Narrative: This 77-year-old female comes in reporting a headache that she believes is a migraine type headache. It started about 2-1/2 hours prior to arrival and was on the left side of her head. She also had associated difficulty remembering certain things at the time. She did not have any speech difficulty except that she could not remember certain normal things and this bothered her at the time. These symptoms lasted for about an hour and now have completely resolved. She did not have any altered sensation or unilateral weakness. She does have a history of occasional migraine headaches and states that as much as 50 years ago she had a migraine with some systemic symptoms. She is taking Eliquis because of a history of pulmonary embolism. She arrives here with normal vital signs. Related Data Home Medications Medication Instructions Recorded Confirmed prednisolone acetate 1 % eye drp 10/15/21 06/14/23 drops,suspension lorazepam 0.5 mg tablet 0.5 mg PO QDAY PRN 10/31/21 06/24/23 Diabetic Test Strips 05/21/22 06/14/23 lancets 05/21/22 06/14/23 Previous Rx's Medication Instructions Recorded albuterol sulfate 90 mcg/actuation 2 puff inhalation Q4H PRN 02/08/22 aerosol inhaler shortness of breath or wheezing #8.5 grams apixaban 5 mg tablet (Eliquis) 5 mg PO BID #180 tabs 11/07/22 fluticasone 250 mcg-salmeterol 50 1 inh inhalation QDAY #60 ea 11/07/22 mcg/dose blistr powdr for inhalation (Advair Diskus) fluticasone propionate 50 2 spray intranasal QDAY PRN nasal 11/07/22 mcg/actuation nasal congestion #16 grams spray,suspension glimepiride 1 mg tablet 2 mg (2 x 1 mg) PO QDAY #180 tabs 11/07/22 lisinopril 2.5 mg tablet 2.5 mg PO QDAY #90 tabs 11/07/22 omeprazole 20 mg capsule,delayed 20 mg PO QDAY #90 caps 11/07/22 release paroxetine HCl 20 mg tablet 20 mg PO QDAY #90 tabs 11/07/22 simvastatin 20 mg tablet 20 mg PO QPM #90 tabs 11/07/22 pen needle, diabetic 32 gauge x #100 ea 11/22/22 (BD Sofiya 2nd Gen Pen Needle) liraglutide 0.6 mg/0.1 mL (18 mg/3 1.8 mg (0.3 mL) subcut QDAY 06/14/23 mL) subcutaneous pen injector diabetes mellitus #9 mL (Victoza 3-Nickolas) semaglutide 0.25 mg or 0.5 mg (2 0.25 mg (0.368 mL) subcut QWEEK 4 06/14/23 mg/3 mL) subcutaneous pen injector weeks #1.472 mL (Ozempic) semaglutide 0.25 mg or 0.5 mg (2 0.5 mg (0.736 mL) subcut QWEEK 4 06/14/23 mg/3 mL) subcutaneous pen injector weeks #2.944 mL (Ozempic) Allergies Allergy/AdvReac Type Severity Reaction Status Date / Time bupropion AdvReac Mild Diarrhea Verified 06/24/23 21:15 metformin AdvReac Unknown Verified 06/24/23 21:15 Review of Systems Status of ROS: Reports: 10 or more systems reviewed and unremarkable except as noted in History and below Narrative: Constitutional: No fevers, no weight gain or loss. Eyes: No discharge. No vision changes. HENT: No congestion, no sore throat, no ear pain. Cardiovascular: No chest pain, no palpitations. Respiratory: No shortness of breath, no wheezes, no cough. Gastrointestinal: No abdominal pain, no vomiting, no diarrhea. Genitourinary: No dysuria, no hematuria. Musculoskeletal: Normal range of motion. Skin: No rashes, no pruritis. Neurological: No dizziness, weakness, sensory change, speech change. She did not have a change in her speech but states that she had trouble remembering what to say, that is finding the right words to say which she wanted. Endo/Heme/Allergies: No bruising or bleeding. No polydipsia. Pysch: no suicidality, no anxiety, no insomnia. All other systems reviewed and are negative. 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) ?H49.22 - Sixth [abducent] nerve palsy, left eye (ICD-10) Ocular migraine ?G43.109 - Migraine with aura, not intractable, without status migrainosus (ICD-10) Obstructive sleep apnea treated with continuous positive airway pressure (CPAP) ?G47.33 - Obstructive sleep apnea (adult) (pediatric) (ICD-10) ?Z99.89 - Dependence on other enabling machines and devices (ICD-10) No retinopathy on exam (06/2017) ?Z01.00 - Encounter for examination of eyes and vision without abnormal findings (ICD-10) History of sarcoidosis (1980) ?Z86.2 - Personal history of diseases of the blood and blood-forming organs and certain disorders involving the immune mechanism (ICD-10) Fuchs' corneal dystrophy ?H18.519 - Endothelial corneal dystrophy, unspecified eye (ICD-10) Diplopia (2020) ?H53.2 - Diplopia (ICD-10) Diabetes mellitus (~2015) ?E11.9 - Type 2 diabetes mellitus without complications (ICD-10) Depression ?F32.A - Depression, unspecified (ICD-10) 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) ?I77.3 - Arterial fibromuscular dysplasia (ICD-10) Anxiety disorder ?F41.9 - Anxiety disorder, unspecified (ICD-10) Surgical History Status post cholecystectomy (2016) ?Z90.49 - Acquired absence of other specified parts of digestive tract (ICD-10) History of tubal ligation (1982) ?Z98.51 - Tubal ligation status (ICD-10) History of total vaginal hysterectomy (TVH) (2010) ?Z90.710 - Acquired absence of both cervix and uterus (ICD-10) History of total right knee replacement (03/2016) ?Z96.651 - Presence of right artificial knee joint (ICD-10) History of total left knee replacement (2015) ?Z96.652 - Presence of left artificial knee joint (ICD-10) History of lymph node biopsy ?Z98.890 - Other specified postprocedural states (ICD-10) History of inguinal hernia repair ?Z98.890 - Other specified postprocedural states (ICD-10) ?Z87.19 - Personal history of other diseases of the digestive system (ICD-10) History of cystoscopy (2015) ?Z98.890 - Other specified postprocedural states (ICD-10) History of cornea transplant ?Z94.7 - Corneal transplant status (ICD-10) Family History Paternal Grandmother Breast cancer Father Family history of early CAD, Onset Age: 38 Son Major depression Daughter Major depression Sister Parkinsonism Other Stroke Social History Narrative: 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 , 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 HEENT: Normocephalic, atraumatic. Neck: Normal range of motion. Nontender. Supple. Heart: Regular. No murmurs. Normal rate. Intact distal pulses. Lungs: Clear to auscultation. No chest discomfort. No wheezes, rhonchi, or rales. Abdomen: Normal bowel sounds. Nontender. No rebound tenderness. Genitalia: Deferred. Back: No midline tenderness. Normal range of motion. Extremities: Normal range of motion. No injury. Skin: Intact. No rash. Warm. No erythema or pallor. Neurologic: No altered sensation. No weakness. Alert and oriented. No facial asymmetry. Tongue is midline. [id number] is normal. No pronator drift. Mine Exploration Engineer strength is equal bilaterally. Able to raise each leg from the bed. Psychiatric: No suicidality. No anxiety or depression. No insomnia. Nursing notes and vitals signs are reviewed. Const: Vital Signs, click to edit/add: Vital Signs - 24 hr 06/24/23 21:15 Temperature 97 F L Pulse Rate [Pulse Oximeter] 97 Respiratory Rate 20 Blood Pressure [Ri ght Upper Arm] 91/68 Pulse Oximetry 95 Oxygen Delivery Me thod Room Air Course Vital Signs Vital signs: Initial Vital Signs Temperature 97 F L 06/24/23 21:15 Temperature Source Temporal Artery Scan 06/24/23 21:15 Pulse Rate 97 06/24/23 21:15 Respiratory Rate 20 06/24/23 21:15 Blood Pressure 91/68 06/24/23 21:15 Blood Pressure Mean 75 06/24/23 21:15 Pulse Oximetry 95 06/24/23 21:15 Oxygen Delivery Method Room Air 06/24/23 21:15 Vital Signs Temperature 97 F L 06/24/23 21:15 Pulse Rate 97 06/24/23 21:15 Respiratory Rate 20 06/24/23 21:15 Blood Pressure 91/68 06/24/23 21:15 Pulse Oximetry 95 06/24/23 21:15 Oxygen Delivery Method Room Air 06/24/23 21:15 Temperature 97 F L 06/24/23 21:15 Pulse Rate 97 06/24/23 21:15 Respiratory Rate 20 06/24/23 21:15 Blood Pressure 91/68 06/24/23 21:15 Pulse Oximetry 95 06/24/23 21:15 Oxygen Delivery Method Room Air 06/24/23 21:15 MDM - Headache MDM Narrative Medical decision making narrative: This patient comes in with report of difficulty remembering what words to say at the time that she was having a migraine-type headache. These symptoms have all completely resolved. She arrives with normal vital signs and has a completely normal neurologic exam. She is taking Eliquis because of a history of pulmonary embolism. She does not report any headache currently but feels like there is a little bit of pressure in her forehead which she feels sometimes and is not new for her. A CT scan of her head is obtained and returns with no acute abnormality according to radiology report. Discharge Plan Discharge Clinical Impression: Migraine Patient Disposition: Home, Self-Care Condition: Improved Additional Instructions: Continue current plans. Follow up with MD or return if symptoms are recurrent or worsening. Prescriptions: No Action albuterol sulfate 90 mcg/actuation HFA aerosol inhaler 2 puff inhalation Q4H PRN (Reason: shortness of breath or wheezing) Qty: 8.5 2RF (DME) Diabetic Test Strips Misc See Rx Instructions .Route Rx Instructions: As directed (DME) lancets Misc See Rx Instructions .Route Rx Instructions: As directed Ozempic 0.25 mg or 0.5 mg (2 mg/3 mL) pen injector 0.25 mg subcut QWEEK 28 Days Qty: 1.472 0RF Ozempic 0.25 mg or 0.5 mg (2 mg/3 mL) pen injector 0.5 mg subcut QWEEK 28 Days Qty: 2.944 1RF Victoza 3-Nickolas 0.6 mg/0.1 mL (18 mg/3 mL) pen injector 1.8 mg SUBCUT QDAY Qty: 9 3RF Eliquis 5 mg tablet 5 mg PO BID Qty: 180 4RF fluticasone propion-salmeterol [Advair Diskus] 250-50 mcg/dose blister with device 1 inh INHALATION QDAY Qty: 60 12RF fluticasone propionate 50 mcg/actuation spray,suspension 2 spray INTRANASAL QDAY PRN (Reason: nasal congestion) Qty: 16 8RF glimepiride 1 mg tablet 2 mg PO QDAY Qty: 180 4RF lisinopril 2.5 mg tablet 2.5 mg PO QDAY Qty: 90 4RF omeprazole 20 mg capsule,delayed release(DR/EC) 20 mg PO QDAY Qty: 90 4RF paroxetine HCl 20 mg tablet 20 mg PO QDAY Qty: 90 4RF simvastatin 20 mg tablet 20 mg PO QPM Qty: 90 4RF prednisolone acetate 1 % drops,suspension Patient Comments: SHAKE LIQUID AND INSTILL 1 DROP IN BOTH EYES EVERY DAY lorazepam 0.5 mg tablet 0.5 mg PO QDAY PRN Patient Comments: TAKE 1 TABLET BY MOUTH DAILY NEEDED FOR SEVERE ANXIETY ONLY (DME) pen needle, diabetic [BD Sofiya 2nd Gen Pen Needle] 32 gauge x 5/32 needle MISCELLANEOUS Qty: 100 6RF Rx Instructions: As directed Follow Up/Referrals: Joan Aragon MD [Primary Care Provider] - Stand Alone Forms: [facility] Info Instructions
--- OUTSIDE RECORDS SUMMARY | 2023-06-24 21:51 | XMS_ITS | Encounter Summary ---
Author Name Unknown Organization [facility] Address [address] [place] [address] Care Team Providers Care Airplane Cabin Attendant Name Role Phone Unavailable Primary Care [...] Progress Notes * Charlie Link M.D. - 09/07/2011 8:52 AM CDT [...] #3 fuchs CDM Reports - EYEGEN Id: [id number] Status: Fnl documented in this encounter Plan of Treatment Not on file documented as of this encounter Visit Diagnoses Not on filedocumented in this encounter
--- OUTSIDE RECORDS SUMMARY | 2023-06-24 21:51 | XMS_ITS | Encounter Summary ---
Author Name Unknown Organization [facility] Address [address] [place] [address] Care Team Providers Care Account Services Representative Name Role Phone Unavailable Primary Care Provider [...] #4 DM CDM Reports - EYEGEN Id: [id number] Status: Fnl documented in this encounter Plan of Treatment Not on file documented as of this encounter Visit Diagnoses Not on filedocumented in this encounter
--- OUTSIDE RECORDS SUMMARY | 2023-06-24 21:51 | XMS_ITS | Clinical Summary ---
Author Name Unknown Organization [facility] Address [place], [place] [address] Care Team Providers Care Leader Assembler Name Role Phone Joan Aragon MD Primary [...] CDT Respiratory Rate 16 02/13/2016 2:08 PM [employer] Oxygen Saturation 96% 07/02/2018 2:57 PM CDT Inhaled Oxygen Concentration - - Weight 94.8 kg (209 lb) 01/07/2020 1:52 PM [employer] Height 165.1 cm (5' 5) 01/07/2020 1:52 PM [employer] Body Mass Index 34.78 01/07/2020 1:52 PM [employer] Plan of Treatment Health Maintenance Due Date [...] 01/14/2015 Tdap Completed 01/14/2015, 01/14/2015 Care Teams Leader Assembler Relationship Specialty Start Date End Date Joan Aragon MD [address] [place] [address] PCP - General Family Practice 01/25/16
--- OUTSIDE RECORDS SUMMARY | 2023-06-24 21:51 | XMS_ITS | Encounter Summary ---
Author Name Unknown Organization [facility] Address [address] [place] [address] Care Team Providers Care Developer Prover Mechanical Name Role Phone Unavailable Primary Care Provider [...] #1 keratopalsty CDM Reports - EYEGEN Id: [id number] Status: Fnl documented in this encounter Plan of Treatment Not on file documented as of this encounter Visit Diagnoses Not on filedocumented in this encounter
--- OUTSIDE RECORDS SUMMARY | 2023-06-24 21:51 | XMS_ITS | Encounter Summary ---
Author Name Unknown Organization [facility] Address [address] [place] [address] Care Team Providers Care Senior Automation Engineer Name Role Phone Unavailable Primary Care Provider [...] CVI current. CDM Reports - EYESV Id: [id number] Status: Fnl documented in this encounter Plan of Treatment Not on file documented as of this encounter Visit Diagnoses Not on filedocumented in this encounter
--- OUTSIDE RECORDS SUMMARY | 2023-06-24 21:51 | XMS_ITS | Encounter Summary ---
Author Name Unknown Organization [facility] Address [address] [place] [address] Care Team Providers Care Marine Pipe Welder Name Role Phone Unavailable Primary Care Provider [...] #1 meme CDM Reports - EYEGEN Id: [id number] Status: Fnl documented in this encounter Plan of Treatment Not on file documented as of this encounter Visit Diagnoses Not on filedocumented in this encounter
--- OUTSIDE RECORDS SUMMARY | 2023-06-24 21:51 | XMS_ITS | Encounter Summary ---
Author Name Unknown Organization [facility] Address [address] [place] [address] Care Team Providers Care Oyster Grower Name Role Phone Unavailable Primary Care Provider [...] #1 meme CDM Reports - EYEGEN Id: [id number] Status: Fnl documented in this encounter Plan of Treatment Not on file documented as of this encounter Visit Diagnoses Not on filedocumented in this encounter
--- OUTSIDE RECORDS SUMMARY | 2023-06-24 21:51 | XMS_ITS | Encounter Summary ---
Author Name Unknown Organization [facility] Address [address] [place] [address] Care Team Providers Care Power Technician Name Role Phone Unavailable Primary Care [...] #1 keratoplasty CDM Reports - EYEGEN Id: [id number] Status: Fnl documented in this encounter Plan of Treatment Not on file documented as of this encounter Visit Diagnoses Not on filedocumented in this encounter
--- OUTSIDE RECORDS SUMMARY | 2023-06-24 21:51 | XMS_ITS | Referral Summary ---
Author Name Unknown Organization [facility] Address [address] [place] [address] Care Team Providers Care Shot Packer Name Role Phone Unavailable Primary Care Provider Unavailabl e Source Comments Patient records contain information from all sites at [facility]. For routine questions regarding patient records, call [phone] during business hours, M-F 8:00 AM - 5:00 PM Central Time. Record requests for emergency care only can be directed to [phone] at any time.[facility] Allergies Active Allergy Reactions Criticality Noted Date Comments Bupropion GI intolerance Low 04/13/2022 Metformin GI intolerance 11/12/2018 Medications Medication Sig Dispensed Refills Start Date End Date Status albuterol (PROVENTIL HFA,VENTOLIN HFA) 90 mcg/actuation inhaler Inhale 2 puffs. 04/19/2014 Active fluticasone propion-salmeteroL 250-50 mcg/dose diskus inhaler INL 1 PUFF PO BID 04/02/2016 Act mario fluticasone propionate (FLONASE ALLERGY RELIEF) 50 mcg/actuation nasal spray Administer 1 puff into affected nostril(s) daily as needed. 04/19/2016 Active VICTOZA 3-KELLY 0.6 mg/0.1 mL (18 mg/3 mL) injection ADM 1.8 MG SC D 11 10/23/2018 Active lisinopril (PRINIVIL,ZESTRIL) 2.5 mg tablet TK 1 T PO D 3 09/04/2018 Active loratadine (CLARITIN) 10 mg tablet Take 1 tablet by mouth daily as needed. 04/19/2016 Active LORazepam (ATIVAN) 0.5 mg tablet TK 1 T PO D PRF SEVERE ANXIETY ONLY 01/21/2018 Active omeprazole (PriLOSEC) [address] capsule TK 1 C PO D 3 09/04/2018 Active PARoxetine (PAXIL) 20 mg tablet Take 20 mg by mouth. 12/02/2017 Active BD ULTRA-FINE JB PEN NEEDLE 32 gauge x 5/32 needle U D UTD 3 08/26/2018 Active prednisoLONE acetate (PRED FORTE) 1 % ophthalmic suspension INT 1 DROP IN OU D 04/19/2016 Active simvastatin (ZOCOR) 20 mg tablet TK 1 T PO HS 3 09/21/2018 Active Eliquis 5 mg tablet Take 5 mg by mouth 2 (two) times a day. 03/29/2020 Active DME CPAPIndications:Apnea Sleep Obstructive DME Order 1 each 11 03/14/2021 Active glimepiride (AMARYL) 1 mg tablet Take 2 mg by mouth daily with breakfast. 08/29/2022 Active DME CPAPIndications:Apnea Sleep Obstructive DME Order 1 each 08/30/2022 Active Active Problems Problem Noted Date [...] often do you attend chur ch or buddhist services? Never 02/28/2022 Do you belong to any clubs o r organizations such as buddhist groups, unions, fraternal or athletic groups, or [...] and heating? Not hard at all 08/23/2022 [facility] of Occupat ional Health - Occupational Stress [...] your living situation today? I have a [facility] place to live 08/23/2022 Education Answer Date [...] ??C (96.6 ??F) 03/05/2022 1 0:24 AM TELESALES TEAM LEADER Respiratory Rate 18 04/21/2016 1:56 PM TELESALES TEAM LEADER Value from Chartplus. Oxygen Saturation - - Inhaled Oxygen Concentration - - Weight 91.5 kg (201 lb 11.5 oz) 08/30/2022 1:44 PM CDT Height 165.8 cm (5' 5.28) 03/05/2022 1 0:24 AM TELESALES TEAM LEADER Body Mass Index 33.28 03/05/2022 10:24 AM TELESALES TEAM LEADER Plan of Treatment Not on file Medical Devices Implanted Type Area Data Entry Representative Device Identifier Shelf Expiration Date Model / Serial / Lot Standard-Screw Rodrigo 4.5 X 50 - [place] [id number] Implanted:Qty: 1 on 11/22/2015 Hardware e.g. pins/screws /rods [facility] Description:Device Manufactu [facility] - Synthes. Device Status Text - HARDWARE-06153. Standard-Screw Rodrigo 4.5 X 30 - [place] [id number] Implanted:Qty: 2 on 11/22/2015 Hardware e.g. pins/screws /rods Depuy Synthes Description:Device Manufactu rer - Synthes. Device Status Text - HARDWARE-70991. Standard-Screw Rodrigo 4.5 X 32 - [place] [id number] Implanted:Qty: 1 on 11/22/2015 Hardware e.g. pins/screws /rods Depuy Synthes Description:Device Manufactu rer - Synthes. Device Status Text - HARDWARE-09877. Standard-Screw Rodrigo 4.5 X 40 - [place] [id number] Implanted:Qty: 1 on 11/22/2015 Hardware e.g. pins/screws /rods Depuy Synthes Description:Device Manufactu rer - Synthes. Device Status Text - HARDWARE-76707. Dcp-Plate T 6ho - [place] [id number] Implanted:Qty: 1 on 11/22/2015 Hardware e.g. pins/screws /rods Depuy Synthes Description:Device Manufactu rer - Synthes. Device Status Text - HARDWARE-39811. Triathlon-Femor al Modular Peg - Forrest [id number] Implanted:Qty: 1 on 11/22/2015 Knee Implant Other/Legacy - See Implant Description [place] Description:Device Manufactu rer - Antione Rudy.. Body Location - Other. Left. Device Status Text - KNEE [id number]. Triathlon-Tibia l Comp #4 Ps 9mm - Forrest [id number] Implanted:Qty: 1 on 11/22/2015 Knee Implant Other/Legacy - See Implant Description Antione Description:Device Manufactu rer - Antione Rudy.. Body Location - Other. Not Applicable. Device Status Text - KNEE IMP-5129908. Triathlon-Inser t X3 Tib 9mm #4 - Forrest [id number] Implanted:Qty: 1 on 11/22/2015 Knee Implant Other/Legacy - See Implant Description Antione Description:Device Manufactu rer - [place] Rudy.. Body Location - Other. Left. Device Status Text - KNEE [id number]. Triathlon-Tibia l Baseplate Lewis #4 - Forrest [id number] Implanted:Qty: 1 on 11/22/2015 Knee Implant Other/Legacy - See Implant Description [place] Description:Device Manufactu rer - Antione Rudy.. Body Location - Other. Left. Device Status Text - KNEE [id number]. Triathlon-Stem Alex. Exten. 12 X 50mm - Forrest [id number] Implanted:Qty: 1 on 11/22/2015 Knee Implant Other/Legacy - See Implant Description Antione Description:Device Manufactu rer - Antione Rudy.. Body Location - Other. Left. Device Status Text - KNEE [id number]. Triathlon-Femor al Cemented #5 Lt - Forrest [id number] Implanted:Qty: 1 on 11/22/2015 Knee Implant Other/Legacy - See Implant Description [place] Description:Device Manufactu rer - [place] Rudy.. Body Location - Other. Left. Device Status Text - KNEE IMP-[id number]. Triathlon-Femor al Modular Peg - [place] [id number] Implanted:Qty: 1 on 04/19/2016 Knee Implant Other/Legacy - See Implant Description Antione Description:Device Manufactu rer - [place] Rudy.. Body Location - Other. Right. Device Status Text - KNEE IMP-2993176. Triathlon-Tibia l Baseplate Lewis #4 - Forrest [id number] Implanted:Qty: 1 on 04/19/2016 Knee Implant Other/Legacy - See Implant Description Antione Description:Device Manufactu rer - Antione Rudy.. Body Location - Other. Right. Device Status Text - KNEE IMP-0301209. Triathlon-Femor al Cemented #5 Rt - [place] [id number] Implanted:Qty: 1 on 04/19/2016 Knee Implant Other/Legacy - See Implant Description [place] Description:Device Manufactu rer - Antione Rudy.. Body Location - Other. Right. Device Status Text - KNEE IMP-5152416. Triathlon-Inser t X3 Tib 9mm #4 - Forrest [id number] Implanted:Qty: 1 on 04/19/2016 Knee Implant Other/Legacy - See Implant Description Antione Description:Device Manufactu rer - Antione Rudy.. Body Location - Other. Right. Device Status Text - KNEE IMP-5885674. Plug Bone Lewis 24mm - [place] [id number] Implanted:Qty: 1 on 11/22/2015 Mesh or Patch [place] Description:Device Manufactu rer - Antione Rudy.. Device Status Text - MESHPATCH-470. Cement Bone Large - [place] [id number] Implanted:Qty: 3 on 11/22/2015 [facility] Other [place] Description:Device Manufactu rer - [place] Rudy.. Device Status Text - MISCOTHER-2840. Cement Bone Large - [place] [id number] Implanted:Qty: 2 on 04/19/2016 [facility] Other Antione Description:Device Manufactu rer - Antione Rudy.. Device Status Text - MISCOTHER-2840. Cornea - [place] [id number] Implanted:Qty: 1 on 08/31/2008 Ocular (Eye) Implant Right: Other/Legacy - See Implant Description [facility] Description:Device Manufactu rer - [facility]. Body Location - Right. Device Status Text - [id number]-021083. Cornea - [place] [id number] Implanted:Qty: 1 on 05/15/2011 Ocular (Eye) Implant Left: Other/Legacy - See Implant Description [facility] Description:Device Manufactu rer - [facility]. Body Location - Left. Device Status Text - OCULARIMP-654234. Lens 6.0x21.5 Et60jb-02.5 - Forrest [id number] Implanted:Qty: 1 on 08/31/2008 Ocular Lens Right: Other/Legacy - See Implant Description [facility] [facility] Description:Device Manufactu rer - [employer]. Body Location - Right. Device Status Text - OCULRLENS-366624. Lens 6.0x21.5 Ks44ts-24.5 - Forrest [id number] Implanted:Qty: 1 on 05/15/2011 Ocular Lens Left: Other/Legacy - See Implant Description [facility] Description:Device Manufactu rer - [employer]. Body Location - Left. Device Status Text - OCULRLENS-334404. Procedures Procedure Name Priority Date/Time Associated Diagnosis Comments EXTI CREATININE WITH EGFR, S/P Routine 06/20/2018 8:45 AM CDT ELECTROLYTE (CHEM 4) PANEL, S/P Routine 04/21/2016 4:57 AM TELESALES TEAM LEADER HEMOGLOBIN A1C, B Routine 05/15/2011 10: 12 AM CDT OPHTHALMOLOGY IMAGE EXAM Routine 01/03/2009 12:00 AM TELESALES TEAM LEADER from Last 3 Months or Most Recently Relevant to Health Maintenance Results * (ABNORMAL) Electrolyte (Chem 4) Panel (04/21/2016 4:57 AM TELESALES TEAM LEADER) Chloride, S 96(L) 98 - 107 MMOL/L [facility] HX Bicarbonate, P/S 23 22 - 29 MMOL/L [facility] Creatinine 0.6 0.6 - 1.1 MG/DL [facility] BUN (Blood Urea Nitrogen), S 6 6 - 21 MG/DL [facility] Sodium, S 136 135 - 145 MMOL/L [facility] Potassium, S 4.1 3.6 - 5.2 MMOL/L [facility] Anion Gap 17(H) 7 - 15 [facility] Glucose, S 181(H) 70 - 140 MG/DL [facility] 04/21/2016 4:57 AM TELESALES TEAM LEADER 04/21/2016 4:57 AM TELESALES TEAM LEADER Edwar Vazquez M.D. LAB BLOOD ADD-ON Performing Organization Address City/[facility]/ZIP Co de Phone Number [facility] [address] * (ABNORMAL) Hemoglobin A1c (05/15/2011 10:12 AM CDT) Hemoglobin A1c, B 6.2(H) 4.0 - 6.0 % [facility] 05/15/2011 10:1 2 AM CDT 05/15/2011 10:12 AM CDT Krishan Reno P.A.-C. LAB BLOOD ADD-O N Performing Organization Address City/[facility]/ZIP Co de Phone Number [facility] [address] * OPHTHALMOLOGY IMAGE EXAM (01/03/2009 12:00 AM TELESALES TEAM LEADER) Anatomical Region Laterality Modality Other 01/03/2009 Addenda Addendum by ProviderOlamide M.D. on 01/03/2009 12:00 AM TELESALES TEAM LEADER OPH^^^MCR [employer] 01/03/2009 00:00:00 Historical Provider IMG NON RAD IMAGING PROCEDURES from Last 3 Months or Most Recently Relevant to Health Maintenance Advance Directives For more information, please contact: [phone] Documents on File Type Date Recorded Patient Technology Infusion Specialist Expl anation Advance Directives 05/15/2011 12:00 AM Leg acy document. See document viewer. Advance Directives 05/15/2011 12:00 AM Leg acy document. See document viewer.
--- OUTSIDE RECORDS SUMMARY | 2023-06-24 21:51 | XMS_ITS | Encounter Summary ---
Author Name Unknown Organization [facility] Address [address] [place] [address] Care Team Providers Care Dental Laboratory Supervisor Name Role Phone Unavailable Primary Care Provider Unavailabl e Encounter Details Date Type Department Care Team (Late st Contact Info) Description 06/08/2011 Historical Ophthalmology RST OPH Roberto Carlos Blanton M.D. [address] [place] [address] Social History Tobacco Use Types Packs/Day Years [...] left eye CDM Reports - EYEGEN Id: [id number] Status: Fnl documented in this encounter Plan of Treatment Not on file documented as of this encounter Visit Diagnoses Not on filedocumented in this encounter
--- OUTSIDE RECORDS SUMMARY | 2023-06-24 21:51 | XMS_ITS | Encounter Summary ---
Author Name Unknown Organization [facility] Address [address] [place] [address] Care Team Providers Care Medical Educator Name Role Phone Unavailable Primary Care Provider [...] #3 fuchs CDM Reports - EYEGEN Id: [id number] Status: Fnl documented in this encounter Plan of Treatment Not on file documented as of this encounter Visit Diagnoses Not on filedocumented in this encounter
--- OUTSIDE RECORDS SUMMARY | 2023-06-24 21:51 | XMS_ITS | Clinical Summary ---
Author Name Unknown Organization [facility] Address [address] [place] [address] Care Team Providers Care Director Clinical Information Services Name Role Phone Unavailable Primary Care Provider Unavailabl e Source Comments Patient records contain information from all sites at [facility]. For routine questions regarding patient records, call [phone] during business hours, M-F 8:00 AM - 5:00 PM Central Time. Record requests for emergency care only can be directed to [phone] at any time.[facility] Allergies Active Allergy Reactions Criticality Noted [...] often do you attend chur ch or yarsanism services? Never 02/28/2022 Do you belong to any clubs o r organizations such as jewish groups, unions, fraternal or athletic groups, or [...] and heating? Not hard at all 08/23/2022 [facility] of Occupat ionak Health - Occupational Stress Questionnaire Answer Date [...] your living situation today? I have a [facility] place to live 08/23/2022 Education Answer [...] ??C (96.6 ??F) 03/05/2022 1 0:24 AM LACQUER SIZER Respiratory Rate 18 04/21/2016 1:56 PM LACQUER SIZER Value from Chartplus. Oxygen Saturation - - Inhaled Oxygen Concentration - - Weight 91.5 kg (201 lb 11.5 oz) 08/30/2022 1:44 PM CDT Height 165.8 cm (5' 5.28) 03/05/2022 1 0:24 AM LACQUER SIZER Body Mass Index 33.28 03/05/2022 10:24 AM LACQUER SIZER Plan of Treatment Health Maintenance Due Date [...] PHQ-2) 02/25/2023 Fall Risk Screen (Annual) 02/25/2023 COVID-19 Vaccine (2022-2 4 season) 2023 12/20/2022, 12/17/2021, 08/01/2021, Additional history exists Office Visit for Blood Press ure Check / Re-check 08/31/2023 08/30/2022 DTaP,Tdap,and Td Vaccines (2 - Td or Tdap) 01/14/2025 01/14/2015 Pneumococcal vaccine (65+ years) Completed 12/05/19 16, 01/14/2015 Zoster Vaccines Completed 07/11/2022, 09/0 02/2018, 11/22/2011 Influenza Vaccine Completed 12/20/2022, , 02/07/2021, Additional history exists Medical Devices Implanted Type Area Shear Setter Device Identifier Shelf Expiration Date Model / Serial / Lot Standard-Screw Rodrigo 4.5 X 50 - [place] [id number] Implanted:Qty: 1 on 11/22/2015 Hardware e.g. pins/screws /rods Depuy Synthes Description:Device Manufactu rer - [employer]. Device Status Text - HARDWARE-85107. Standard-Screw Rodrigo 4.5 X 30 - [place] [id number] Implanted:Qty: 2 on 11/22/2015 Hardware e.g. pins/screws /rods Depuy Synthes Description:Device Manufactu rer - [employer]. Device Status Text - HARDWARE-71733. Standard-Screw Rodrigo 4.5 X 32 - [place] [id number] Implanted:Qty: 1 on 11/22/2015 Hardware e.g. pins/screws /rods Depuy Synthes Description:Device Manufactu rer - [employer]ynthes. Device Status Text - HARDWARE-84166. Standard-Screw Rodrigo 4.5 X 40 - [place] [id number] Implanted:Qty: 1 on 11/22/2015 Hardware e.g. pins/screws /rods Depuy Synthes Description:Device Manufactu rer - Synthes. Device Status Text - HARDWARE-30536. Dcp-Plate T 6ho - [place] [id number] Implanted:Qty: 1 on 11/22/2015 Hardware e.g. pins/screws /rods Depuy Synthes Description:Device Manufactu rer - [employer]ynthe[employer]. Device Status Text - HARDWARE-34093. Triathlon-Femor al Modular Peg - [place] [id number] Implanted:Qty: 1 on 11/22/2015 Knee Implant Other/Legacy - See Implant Description [place] Description:Device Manufactu rer - [employer] Rudy.. Body Location - Other. Left. Device Status Text - KNEE IMP-3577903. Triathlon-Tibia l Comp #4 Ps 9mm - [place] [id number] Implanted:Qty: 1 on 11/22/2015 Knee Implant Other/Legacy - See Implant Description [place] Description:Device Manufactu rer - [place] Rudy.. Body Location - Other. Not Applicable. Device Status Text - KNEE IMP-0669241. Triathlon-Inser t X3 Tib 9mm #4 - [place] [id number] Implanted:Qty: 1 on 11/22/2015 Knee Implant Other/Legacy - See Implant Description [place] Description:Device Manufactu rer - [employer] Rudy.. Body Location - Other. Left. Device Status Text - KNEE IMP-2160184. Triathlon-Tibia l Baseplate [place] #4 - Forrest [id number] Implanted:Qty: 1 on 11/22/2015 Knee Implant Other/Legacy - See Implant Description [employer] Description:Device Manufactu rer - [employer] Rudy.. Body Location - Other. Left. Device Status Text - KNEE IMP-0299272. Triathlon-Stem Alex. Exten. 12 X 50mm - Forrest [id number] Implanted:Qty: 1 on 11/22/2015 Knee Implant Other/Legacy - See Implant Description [place] Description:Device Manufactu rer - Ant[employer] Rudy.. Body Location - Other. Left. Device Status Text - KNEE IMP-4237926. Triathlon-Femor al Cemented #5 Lt - [place] [id number] Implanted:Qty: 1 on 11/22/2015 Knee Implant Other/Legacy - See Implant Description [employer] Description:Device Manufactu rer - [employer] Rudy.. Body Location - Other. Left. Device Status Text - KNEE IMP-4140367. Triathlon-Femor al Modular Peg - [place] [id number] Implanted:Qty: 1 on 04/19/2016 Knee Implant Other/Legacy - See Implant Description [place] Description:Device Manufactu rer - [employer] Rudy.. Body Location - Other. Right. Device Status Text - KNEE IMP-4831387. Triathlon-Tibia l Baseplate Winters #4 - Forrest [id number] Implanted:Qty: 1 on 04/19/2016 Knee Implant Other/Legacy - See Implant Description [employer] Description:Device Manufactu rer - [place] Rudy.. Body Location - Other. Right. Device Status Text - KNEE IMP-7628489. Triathlon-Femor al Cemented #5 Rt - [place] [id number] Implanted:Qty: 1 on 04/19/2016 Knee Implant Other/Legacy - See Implant Description [employer] Description:Device Manufactu rer - [employer] Rudy.. Body Location - Other. Right. Device Status Text - KNEE IMP-9527867. Triathlon-Inser t X3 Tib 9mm #4 - [place] [id number] Implanted:Qty: 1 on 04/19/2016 Knee Implant Other/Legacy - See Implant Description [employer] Description:Device Manufactu rer - [employer] Rudy.. Body Location - Other. Right. Device Status Text - KNEE IMP-0869869. Plug Bone [place] 24mm - [place] [id number] Implanted:Qty: 1 on 11/22/2015 Mesh or Patch [employer] Description:Device Manufactu rer - [employer] Rudy.. Device Status Text - MESHPATCH-470. Cement Bone Large - [place] [id number] Implanted:Qty: 3 on 11/22/2015 Misc Other [place] Description:Device Manufactu rer - [employer] Rudy.. Device Status Text - MISCOTHER-2840. Cement Bone Large - [place] [id number] Implanted:Qty: 2 on 04/19/2016 Misc Other [place] Description:Device Manufactu rer - [place] Rudy.. Device Status Text - MISCOTHER-2840. Cornea - [place] [id number] Implanted:Qty: 1 on 08/31/2008 Ocular (Eye) Implant Right: Other/Legacy - See Implant Description [facility] Description:Device Manufactu rer - [facility]. Body Location - Right. Device Status Text - OCULARIMP-527507. Cornea - [place] [id number] Implanted:Qty: 1 on 05/15/2011 Ocular (Eye) Implant Left: Other/Legacy - See Implant Description [facility] Description:Device Manufactu rer - [facility]. Body Location - Left. Device Status Text - OCULARIMP-995295. Lens 6.0x21.5 Tg91nl-29.5 - [place] [id number] Implanted:Qty: 1 on 08/31/2008 Ocular Lens Right: Other/Legacy - See Implant Description [facility] Description:Device Manufactu rer - [employer]. Body Location - Right. Device Status Text - OCULRLENS-777269. Lens 6.0x21.5 Dm47zq-05.5 - [place] [id number] Implanted:Qty: 1 on 05/15/2011 Ocular Lens Left: Other/Legacy - See Implant Description [facility] Description:Device Manufactu rer - [facility] [facility]. Body Location - Left. Device Status Text - OCULRLENS-803163. Procedures Procedure Name Priority Date/Time Associated Diagnosis Comments EXTI CREATININE WITH EGFR, S/P Routine 06/20/2018 8:45 AM CDT ELECTROLYTE (CHEM 4) PANEL, S/P Routine 04/21/2016 4:57 AM LACQUER SIZER HEMOGLOBIN A1C, B Routine 05/15/2011 10: 12 AM CDT OPHTHALMOLOGY IMAGE EXAM Routine 01/03/2009 12:00 AM LACQUER SIZER from Last 3 Months or Most Recently Relevant to Health Maintenance Results * (ABNORMAL) Electrolyte (Chem 4) Panel (04/21/2016 4:57 AM LACQUER SIZER) Chloride, S 96(L) 98 - 107 MMOL/L [facility] HX Bicarbonate, P/S 23 22 - 29 MMOL/L [facility] Creatinine 0.6 0.6 - 1.1 MG/DL [facility] BUN (Blood Urea Nitrogen), S 6 6 - 21 MG/DL [facility] Sodium, S 136 135 - 145 MMOL/L [facility] Potassium, S 4.1 3.6 - 5.2 MMOL/L [facility] Anion Gap 17(H) 7 - 15 [facility] Glucose, S 181(H) 70 - 140 MG/DL [facility] 04/21/2016 4:57 AM LACQUER SIZER 04/21/2016 4:57 AM LACQUER SIZER Edwar Vazquez M.D. LAB BLOOD ADD-ON [facility] [address] * (ABNORMAL) Hemoglobin A1c (05/15/2011 10:12 AM CDT) Hemoglobin A1c, B 6.2(H) 4.0 - 6.0 % [facility] 05/15/2011 10:1 2 AM CDT 05/15/2011 10:12 AM CDT Krishan Reno P.A.-C. LAB BLOOD ADD-O N [facility] [address] * OPHTHALMOLOGY IMAGE EXAM (01/03/2009 12:00 AM LACQUER SIZER) Anatomical Region Laterality Modality Other 01/03/2009 Addenda Addendum by Provider, Mady Quiñonez on 01/03/2009 12:00 AM LACQUER SIZER OPH^^^MCR [facility] 01/03/2009 00:00:00 Historical Provider IMG NON RAD IMAGING PROCEDURES from Last 3 Months or Most Recently Relevant to Health Maintenance Advance Directives For more information, please contact: [phone] Documents on File Type Date Recorded Patient Video Poker Floorman Expl anation Advance Directives 05/15/2011 12:00 AM Leg acy document. See document viewer. Advance Directives 05/15/2011 12:00 AM Leg acy document. See document viewer.
--- OUTSIDE RECORDS SUMMARY | 2023-06-24 21:51 | XMS_ITS | Encounter Summary ---
Author Name Unknown Organization [facility] Address [address] [place] [address] Care Team Providers Care Chip Frier Name Role Phone Unavailable Primary Care Provider [...] #3 fuchs CDM Reports - EYEGEN Id: [id number] Status: Fnl documented in this encounter Plan of Treatment Not on file documented as of this encounter Visit Diagnoses Not on filedocumented in this encounter
--- OUTSIDE RECORDS SUMMARY | 2023-06-24 21:51 | XMS_ITS | Encounter Summary ---
Author Name Unknown Organization [facility] Address [address] [place] [address] Care Team Providers Care Rn Labor And Delivery Name Role Phone Unavailable Primary Care Provider Unavailabl e Encounter Details Date Type Department Care Team (Late st Contact Info) Description 05/28/2011 Historical Ophthalmology RST OPH Roberto Carlos Blanton M.D. [address] [place] [address] Social History Tobacco Use Types Packs/Day Years [...] left eye CDM Reports - EYEGEN Id: [id number] Status: Fnl documented in this encounter Plan of Treatment Not on file documented as of this encounter Visit Diagnoses Not on filedocumented in this encounter
--- OUTSIDE RECORDS SUMMARY | 2023-06-24 21:51 | XMS_ITS | Encounter Summary ---
Author Name Unknown Organization [facility] Address [address] [place] [address] Care Team Providers Care Bridge Painter Name Role Phone Unavailable Primary Care Provider [...] Document Viewer. CDM Reports - EYEPO Id: [id number] Status: Fnl documented in this encounter Plan of Treatment Not on file documented as of this encounter Visit Diagnoses Not on filedocumented in this encounter
--- OUTSIDE RECORDS SUMMARY | 2023-06-24 21:51 | XMS_ITS | Encounter Summary ---
Author Name Unknown Organization [facility] Address [address] [place] [address] Care Team Providers Care Film Library Clerk Name Role Phone Unavailable Primary Care Provider [...] #2 cataract CDM Reports - EYEGEN Id: [id number] Status: Fnl documented in this encounter Plan of Treatment Not on file documented as of this encounter Visit Diagnoses Not on filedocumented in this encounter
--- OUTSIDE RECORDS SUMMARY | 2023-06-24 21:51 | XMS_ITS ---
Author Name Unknown Organization [facility] Address [address] [place] [address] Care Team Providers Care Information Writer Name Role Phone Unavailable Unavailable Unavailable Surgery Details Not on file Complications Check Surgery Details section. Procedure Estimated Blood Loss Check Surgery Details section. Procedure Findings Check Surgery Details section. Procedure Specimens Taken Check Surgery Details section.
--- OUTSIDE RECORDS SUMMARY | 2023-06-24 21:51 | XMS_ITS | Encounter Summary ---
Author Name Unknown Organization [facility] Address [address] [place] [address] Care Team Providers Care Oracle Solutions Architect Name Role Phone Unavailable Primary Care Provider Unavailabl e Encounter Details Date Type Department Care Team (Late st Contact Info) Description 07/15/2008 Historical Ophthalmology RST OPH Lurdes Clark C.O.A. [address] [place] [address] Social History Tobacco Use Types Packs/Day Years [...] scheduled. MARSHALL CDM Reports - EYESV Id: [id number] Status: Fnl documented in this encounter Plan of Treatment Not on file documented as of this encounter Visit Diagnoses Not on filedocumented in this encounter
--- OUTSIDE RECORDS SUMMARY | 2023-06-24 21:51 | XMS_ITS | Encounter Summary ---
Author Name Unknown Organization [facility] Address [address] [place] [address] Care Team Providers Care Fuel Agent Name Role Phone Unavailable Primary Care Provider [...] #2 cataract CDM Reports - EYEGEN Id: [id number] Status: Fnl documented in this encounter Plan of Treatment Not on file documented as of this encounter Visit Diagnoses Not on filedocumented in this encounter
--- OUTSIDE RECORDS SUMMARY | 2023-06-24 21:51 | XMS_ITS | Encounter Summary ---
Author Name Unknown Organization [facility] Address [address] [place] [address] Care Team Providers Care Crop Specialist Name Role Phone Unavailable Primary Care Provider [...] Document Viewer. CDM Reports - EYEPO Id: [id number] Status: Fnl documented in this encounter Plan of Treatment Not on file documented as of this encounter Visit Diagnoses Not on filedocumented in this encounter
== END 2023-06-24 23:31 | disposition home or self-care (01) ==
PROVIDERS: Emergency Provider Emergency Medicine Emergency Medical Services; PCP Family Medicine
DX: G43.909 Migraine, unspecified, not intractable, without status migrainosus (principal)
CPT/HCPCS: 70450; 99283; 99284

== ENCOUNTER 2023-09-10 11:00 | Outpatient (CLI) | payer MEDICARE, BC, SELFPAY ==
--- OUTSIDE RECORDS SUMMARY | 2023-09-13 01:45 | XMS_ITS | Clinical Summary ---
Author Organization [facility] Address [place], [place] [address] Care Team Providers Care Ventilator Specialist Name Role Phone Joan Aragon MD Primary [...] Outcome GA Total Labor Labor/2nd/3rd Weight Sex Type Anes PTL Clarisa A1 A5 Name Clin Term Term Term Last Filed Vital Signs Vital Sign Reading Time Taken Comments Blood Pressure 149/82 07/02/2018 2:58 PM CDT Pulse 83 07/02/2018 2:58 PM CDT Temperature 37 ??C (98.6 ??F) 07/02/2018 2:57 PM CDT Respiratory Rate 16 02/13/2016 2:08 PM HOSPICE ENTRANCE ATTENDANT Oxygen Saturation 96% 07/02/2018 2:57 PM CDT Inhaled Oxygen Concentration - - Weight 94.8 kg (209 lb) 01/07/2020 1:52 PM HOSPICE ENTRANCE ATTENDANT Height 165.1 cm (5' 5) 01/07/2020 1:52 PM HOSPICE ENTRANCE ATTENDANT Body Mass Index 34.78 01/07/2020 1:52 PM HOSPICE ENTRANCE ATTENDANT Plan of Treatment Health Maintenance Due Date [...] 01/14/2015 Tdap Completed 01/14/2015, 01/14/2015 Care Teams Ventilator Specialist Relationship Specialty Start Date End Date Joan Aragon MD [address] [place] [address] PCP - General Family Practice 01/25/16
--- OUTSIDE RECORDS SUMMARY | 2023-09-13 01:46 | XMS_ITS | Encounter Summary ---
Author Organization [facility] Address [address] [place] [address] Care Team Providers Care Junior Database Administrator Name Role Phone Unavailable Primary Care Provider [...] Document Viewer. CDM Reports - EYEPO Id: [id number] Status: Fnl documented in this encounter Plan of Treatment Not on file documented as of this encounter Visit Diagnoses Not on filedocumented in this encounter
--- OUTSIDE RECORDS SUMMARY | 2023-09-13 01:46 | XMS_ITS | Encounter Summary ---
Author Organization [facility] Address [address] [place] [address] Care Team Providers Care Hypercil Core Transformer Assembler Name Role Phone Unavailable Primary Care Provider Unavailabl e Encounter Details Date Type Department Care Team (Late st Contact Info) Description 07/15/2008 Historical Ophthalmology RST OPH Lurdes Clark C.O.A. [address] [place] [address] Social History Tobacco Use Types Packs/Day Years [...] scheduled. MARSHALL CDM Reports - EYESV Id: [id number] Status: Fnl documented in this encounter Plan of Treatment Not on file documented as of this encounter Visit Diagnoses Not on filedocumented in this encounter
--- OUTSIDE RECORDS SUMMARY | 2023-09-13 01:46 | XMS_ITS | Encounter Summary ---
Author Organization [facility] Address [address] [place] [address] Care Team Providers Care Preflight Inspector Name Role Phone Unavailable Primary Care Provider [...] #1 keratopalsty CDM Reports - EYEGEN Id: [id number] Status: Fnl documented in this encounter Plan of Treatment Not on file documented as of this encounter Visit Diagnoses Not on filedocumented in this encounter
--- OUTSIDE RECORDS SUMMARY | 2023-09-13 01:46 | XMS_ITS ---
Author Organization [facility] Address [address] [place] [address] Care Team Providers Care Orchestra Musician Name Role Phone Unavailable Unavailable Unavailable Surgery Details Not on file Complications Check Surgery Details section. Procedure Estimated Blood Loss Check Surgery Details section. Procedure Findings Check Surgery Details section. Procedure Specimens Taken Check Surgery Details section.
--- OUTSIDE RECORDS SUMMARY | 2023-09-13 01:46 | XMS_ITS | Encounter Summary ---
Author Organization [facility] Address [address] [place] [address] Care Team Providers Care Director Of Restaurant Operations Name Role Phone Unavailable Primary Care Provider Unavailabl e Encounter Details Date Type Department Care Team (Late st Contact Info) Description 06/08/2011 Historical Ophthalmology RST OPH Roberto Carlos Blanton M.D. [address] [place] [address] Social History Tobacco Use Types Packs/Day Years [...] left eye CDM Reports - EYEGEN Id: [id number] Status: Fnl documented in this encounter Plan of Treatment Not on file documented as of this encounter Visit Diagnoses Not on filedocumented in this encounter
--- OUTSIDE RECORDS SUMMARY | 2023-09-13 01:46 | XMS_ITS | Encounter Summary ---
Author Organization [facility] Address [address] [place] [address] Care Team Providers Care Vertical Roll Operator Name Role Phone Unavailable Primary Care [...] #3 fuchs CDM Reports - EYEGEN Id: [id number] Status: Fnl documented in this encounter Plan of Treatment Not on file documented as of this encounter Visit Diagnoses Not on filedocumented in this encounter
--- OUTSIDE RECORDS SUMMARY | 2023-09-13 01:46 | XMS_ITS | Encounter Summary ---
Author Organization [facility] Address [address] [place] [address] Care Team Providers Care Bulk Picker Name Role Phone Unavailable Primary Care Provider [...] CVI current. CDM Reports - EYESV Id: [id number] Status: Fnl documented in this encounter Plan of Treatment Not on file documented as of this encounter Visit Diagnoses Not on filedocumented in this encounter
--- OUTSIDE RECORDS SUMMARY | 2023-09-13 01:46 | XMS_ITS | Encounter Summary ---
Author Organization [facility] Address [address] [place] [address] Care Team Providers Care Dusting And Brushing Machine Operator Name Role Phone Unavailable Primary [...] #2 cataract CDM Reports - EYEGEN Id: [id number] Status: Fnl documented in this encounter Plan of Treatment Not on file documented as of this encounter Visit Diagnoses Not on filedocumented in this encounter
--- OUTSIDE RECORDS SUMMARY | 2023-09-13 01:46 | XMS_ITS | Encounter Summary ---
Author Organization [facility] Address [address] [place] [address] Care Team Providers Care Colorist Photography Name Role Phone Unavailable Primary Care Provider [...] DSEK, [place], IOLleft eye 04/12. DIAGNOSIS #1 fucchristiano CDM Reports - EYEGEN Id: [id number] Status: Fnl documented in this encounter Plan of Treatment Not on file documented as of this encounter Visit Diagnoses Not on filedocumented in this encounter
--- OUTSIDE RECORDS SUMMARY | 2023-09-13 01:46 | XMS_ITS | Encounter Summary ---
Author Organization [facility] Address [address] [place] [address] Care Team Providers Care Band Singer Name Role Phone Unavailable Primary Care Provider [...] #2 cataract CDM Reports - EYEGEN Id: [id number] Status: Fnl documented in this encounter Plan of Treatment Not on file documented as of this encounter Visit Diagnoses Not on filedocumented in this encounter
--- OUTSIDE RECORDS SUMMARY | 2023-09-13 01:46 | XMS_ITS | Referral Summary ---
Author Organization [facility] Address [address] [place] [address] Care Team Providers Care Marklogic Developer Name Role Phone Unavailable Primary Care Provider Unavailabl e Source Comments Patient records contain information from all sites at [facility]. For routine questions regarding patient records, call [phone] during business hours, M-F 8:00 AM - 5:00 PM Central Time. Record requests for emergency care only can be directed to [phone] at any time.[facility] Allergies Active Allergy Reactions Criticality Noted Date [...] often do you attend chur ch or mormonism services? Never 02/28/2022 Do you belong to any clubs o r organizations such as rastafarian groups, unions, fraternal or athletic groups, or [...] and heating? Not hard at all 08/23/2022 [facility] - Occupational Stress [...] your living situation today? I have a [facility] place to live 08/23/2022 Education Answer [...] ??C (96.6 ??F) 03/05/2022 1 0:24 AM MEDICAL HEALTH RESEARCHER Respiratory Rate 18 04/21/2016 1:56 PM MEDICAL HEALTH RESEARCHER Value from Chartplus. Oxygen Saturation - - Inhaled Oxygen Concentration - - Weight 91.5 kg (201 lb 11.5 oz) 08/30/2022 1:44 PM CDT Height 165.8 cm (5' 5.28) 03/05/2022 1 0:24 AM MEDICAL HEALTH RESEARCHER Body Mass Index 33.28 03/05/2022 10:24 AM MEDICAL HEALTH RESEARCHER Plan of Treatment Not on file Medical Devices Implanted Type Area Registered Radiation Therapist Device Identifier Shelf Expiration Date Model / Serial / Lot Standard-Screw Rodrigo 4.5 X 50 - Forrest [id number] Implanted:Qty: 1 on 11/22/2015 Hardware e.g. pins/screws /rods DepFlyfit Description:Device Manufactu [facility] Synthes. Device Status Text - [id number]. Standard-Screw Rodrigo 4.5 X 30 - Forrest [id number] Implanted:Qty: 2 on 11/22/2015 Hardware e.g. pins/screws /rods Depuy Synthes Description:Device Manufactu rer - Synthes. Device Status Text - HARDWARE-74346. Standard-Screw Rodrigo 4.5 X 32 - [place] [id number] Implanted:Qty: 1 on 11/22/2015 Hardware e.g. pins/screws /rods Depuy Synthes Description:Device Manufactu rer - Synthes. Device Status Text - HARDWARE-72526. Standard-Screw Rodrigo 4.5 X 40 - [place] [id number] Implanted:Qty: 1 on 11/22/2015 Hardware e.g. pins/screws /rods Depuy Synthes Description:Device Manufactu rer - Synthes. Device Status Text - HARDWARE-35239. Dcp-Plate T 6ho - Forrest [id number] Implanted:Qty: 1 on 11/22/2015 Hardware e.g. pins/screws /rods Depuy Synthes Description:Device Manufactu rer - Synthes. Device Status Text - HARDWARE-87889. Triathlon-Femor al Modular Peg - Forrest [id number] Implanted:Qty: 1 on 11/22/2015 Knee Implant Other/Legacy - See Implant Description Antione Description:Device Manufactu rer - Phenix Rudy.. Body Location - Other. Left. Device Status Text - KNEE [id number]. Triathlon-Tibia l Comp #4 Ps 9mm - Forrest [id number] Implanted:Qty: 1 on 11/22/2015 Knee Implant Other/Legacy - See Implant Description Antione Description:Device Manufactu rer - Antione Rudy.. Body Location - Other. Not Applicable. Device Status Text - KNEE [id number]. Triathlon-Inser t X3 Tib 9mm #4 - Forrest [id number] Implanted:Qty: 1 on 11/22/2015 Knee Implant Other/Legacy - See Implant Description Antione Description:Device Manufactu rer - Antione Rudy.. Body Location - Other. Left. Device Status Text - KNEE [id number]. Triathlon-Tibia l Baseplate [place] #4 - Forrest [id number] Implanted:Qty: 1 on 11/22/2015 Knee Implant Other/Legacy - See Implant Description Phenix Description:Device Manufactu rer - Phenix Rudy.. Body Location - Other. Left. Device Status Text - KNEE [id number]. Triathlon-Stem Alex. Exten. 12 X 50mm - Forrest [id number] Implanted:Qty: 1 on 11/22/2015 Knee Implant Other/Legacy - See Implant Description Phenix Description:Device Manufactu rer - Phenix Rudy.. Body Location - Other. Left. Device Status Text - KNEE [id number]. Triathlon-Femor al Cemented #5 Lt - Forrest [id number] Implanted:Qty: 1 on 11/22/2015 Knee Implant Other/Legacy - See Implant Description Phenix Description:Device Manufactu rer - Antione Rudy.. Body Location - Other. Left. Device Status Text - KNEE IMP-[id number]. Triathlon-Femor al Modular Peg - Forrest [id number] Implanted:Qty: 1 on 04/19/2016 Knee Implant Other/Legacy - See Implant Description Antione Description:Device Manufactu rer - Antione Rudy.. Body Location - Other. Right. Device Status Text - KNEE [id number]. Triathlon-Tibia l Baseplate [place] #4 - Forrest [id number] Implanted:Qty: 1 on 04/19/2016 Knee Implant Other/Legacy - See Implant Description Phenix Description:Device Manufactu rer - Phenix Rudy.. Body Location - Other. Right. Device Status Text - KNEE [id number]. Triathlon-Femor al Cemented #5 Rt - Forrest [id number] Implanted:Qty: 1 on 04/19/2016 Knee Implant Other/Legacy - See Implant Description Phenix Description:Device Manufactu rer - Antione Rudy.. Body Location - Other. Right. Device Status Text - KNEE IMP-2488028. Triathlon-Inser t X3 Tib 9mm #4 - Forrest [id number] Implanted:Qty: 1 on 04/19/2016 Knee Implant Other/Legacy - See Implant Description Antione Description:Device Manufactu rer - Antione Rudy.. Body Location - Other. Right. Device Status Text - KNEE IMP-[id number]. Plug Bone [place] 24mm - [place] [id number] Implanted:Qty: 1 on 11/22/2015 Mesh or Patch Phenix Description:Device Manufactu rer - Antione Rudy.. Device Status Text - MESHPATCH-470. Cement Bone Large - [place] [id number] Implanted:Qty: 3 on 11/22/2015 [facility] Other Antione Description:Device Manufactu rer - Antione Rudy.. Device Status Text - MISCOTHER-2840. Cement Bone Large - [place] [id number] Implanted:Qty: 2 on 04/19/2016 [facility] Other Antione Description:Device Manufactu rer - Antione Rudy.. Device Status Text - MISCOTHER-2840. Cornea - Forrest [id number] Implanted:Qty: 1 on 08/31/2008 Ocular (Eye) Implant Right: Other/Legacy - See Implant Description [facility] Eye [facility] Description:Device Manufactu rer - [facility]. Body Location - Right. Device Status Text - [id number]-542829. Cornea - [place] [id number] Implanted:Qty: 1 on 05/15/2011 Ocular (Eye) Implant Left: Other/Legacy - See Implant Description [facility] Eye [facility] Description:Device Manufactu rer - [facility]. Body Location - Left. Device Status Text - [id number]. Lens 6.0x21.5 [id number]-08.5 - Forrest [id number] Implanted:Qty: 1 on 08/31/2008 Ocular Lens Right: Other/Legacy - See Implant Description [employer] Description:Device Manufactu rer - [employer]. Body Location - Right. Device Status Text - [id number]. Lens 6.0x21.5 Vv36rx-86.5 - Forrest [id number] Implanted:Qty: 1 on 05/15/2011 Ocular Lens Left: Other/Legacy - See Implant Description [employer] Description:Device Manufactu rer - [employer]. Body Location - Left. Device Status Text - [id number]-677500. Procedures Procedure Name Priority Date/Time Associated Diagnosis Comments EXTI CREATININE WITH EGFR, S/P Routine 06/20/2018 8:45 AM CDT ELECTROLYTE (CHEM 4) PANEL, S/P Routine 04/21/2016 4:57 AM MEDICAL HEALTH RESEARCHER HEMOGLOBIN A1C, B Routine 05/15/2011 10: 12 AM CDT OPHTHALMOLOGY IMAGE EXAM Routine 01/03/2009 12:00 AM MEDICAL HEALTH RESEARCHER from Last 3 Months or Most Recently Relevant to Health Maintenance Results * (ABNORMAL) Electrolyte (Chem 4) Panel (04/21/2016 4:57 AM MEDICAL HEALTH RESEARCHER) Chloride, S 96(L) 98 - 107 MMOL/L [facility] HX Bicarbonate, P/S 23 22 - 29 MMOL/L [facility] Creatinine 0.6 0.6 - 1.1 MG/DL [facility] BUN (Blood Urea Nitrogen), S 6 6 - 21 MG/DL [facility] Sodium, S 136 135 - 145 MMOL/L [facility] Potassium, S 4.1 3.6 - 5.2 MMOL/L [facility] Anion Gap 17(H) 7 - 15 [facility] Glucose, S 181(H) 70 - 140 MG/DL [facility] 04/21/2016 4:57 AM MEDICAL HEALTH RESEARCHER 04/21/2016 4:57 AM MEDICAL HEALTH RESEARCHER Edwar Vazquez M.D. LAB BLOOD ADD-ON Performing Organization Address City/[facility]/ZIP Co de Phone Number [facility] [address] * (ABNORMAL) Hemoglobin A1c (05/15/2011 10:12 AM CDT) Hemoglobin A1c, B 6.2(H) 4.0 - 6.0 % [facility] 05/15/2011 10:1 2 AM CDT 05/15/2011 10:12 AM CDT Krishan Reno P.A.-C. LAB BLOOD ADD-O N Performing Organization Address City/[facility]/ZIP Co de Phone Number [facility] [address] * OPHTHALMOLOGY IMAGE EXAM (01/03/2009 12:00 AM MEDICAL HEALTH RESEARCHER) Anatomical Region Laterality Modality Other 01/03/2009 Addenda Addendum by ProviderOlamide M.D. on 01/03/2009 12:00 AM MEDICAL HEALTH RESEARCHER OPH^^^MCR [facility] 01/03/2009 00:00:00 Historical Provider IMG NON RAD IMAGING PROCEDURES from Last 3 Months or Most Recently Relevant to Health Maintenance Advance Directives For more information, please contact: [phone] Documents on File Type Date Recorded Patient Event Decorator And Designer Expl anation Advance Directives 05/15/2011 12:00 AM Leg acy document. See document viewer. Advance Directives 05/15/2011 12:00 AM Leg acy document. See document viewer.
--- OUTSIDE RECORDS SUMMARY | 2023-09-13 01:46 | XMS_ITS | Encounter Summary ---
Author Organization [facility] Address [address] [place] [address] Care Team Providers Care Applications Engineer Name Role Phone Unavailable Primary Care [...] #1 keratoplasty CDM Reports - EYEGEN Id: [id number] Status: Fnl documented in this encounter Plan of Treatment Not on file documented as of this encounter Visit Diagnoses Not on filedocumented in this encounter
--- OUTSIDE RECORDS SUMMARY | 2023-09-13 01:46 | XMS_ITS | Encounter Summary ---
Author Organization [facility] Address [address] [place] [address] Care Team Providers Care Director It Name Role Phone Unavailable Primary Care Provider Unavailabl e Encounter Details Date Type Department Care Team (Late st Contact Info) Description 05/28/2011 Historical Ophthalmology RST OPH Roberto Carlos Blanton M.D. [address] [place] [address] Social History Tobacco Use Types Packs/Day Years [...] left eye CDM Reports - EYEGEN Id: [id number] Status: Fnl documented in this encounter Plan of Treatment Not on file documented as of this encounter Visit Diagnoses Not on filedocumented in this encounter
--- OUTSIDE RECORDS SUMMARY | 2023-09-13 01:46 | XMS_ITS | Encounter Summary ---
Author Organization [facility] Address [address] [place] [address] Care Team Providers Care Steam Clean Machine Operator Name Role Phone Unavailable Primary [...] #1 meme CDM Reports - EYEGEN Id: [id number] Status: Fnl documented in this encounter Plan of Treatment Not on file documented as of this encounter Visit Diagnoses Not on filedocumented in this encounter
--- OUTSIDE RECORDS SUMMARY | 2023-09-13 01:46 | XMS_ITS | Encounter Summary ---
Author Organization [facility] Address [address] [place] [address] Care Team Providers Care Captain Airline Pilot Name Role Phone Unavailable Primary Care Provider [...] Document Viewer. CDM Reports - EYEPO Id: [id number] Status: Fnl documented in this encounter Plan of Treatment Not on file documented as of this encounter Visit Diagnoses Not on filedocumented in this encounter
--- OUTSIDE RECORDS SUMMARY | 2023-09-13 01:46 | XMS_ITS | Encounter Summary ---
Author Organization [facility] Address [address] [place] [address] Care Team Providers Care Apprentice Name Role Phone Unavailable Primary Care Provider [...] #3 fuchs CDM Reports - EYEGEN Id: [id number] Status: Fnl documented in this encounter Plan of Treatment Not on file documented as of this encounter Visit Diagnoses Not on filedocumented in this encounter
--- OUTSIDE RECORDS SUMMARY | 2023-09-13 01:46 | XMS_ITS | Encounter Summary ---
Author Organization [facility] Address [address] [place] [address] Care Team Providers Care Athletic Equipment Custodian Name Role Phone Unavailable Primary Care Provider [...] #3 fuchs CDM Reports - EYEGEN Id: [id number] Status: Fnl documented in this encounter Plan of Treatment Not on file documented as of this encounter Visit Diagnoses Not on filedocumented in this encounter
--- OUTSIDE RECORDS SUMMARY | 2023-09-13 01:46 | XMS_ITS | Clinical Summary ---
Author Organization [facility] Address [address] [place] [address] Care Team Providers Care Database Marketing Analyst Name Role Phone Unavailable Primary Care Provider Unavailabl e Source Comments Patient records contain information from all sites at [facility]. For routine questions regarding patient records, call [phone] during business hours, M-F 8:00 AM - 5:00 PM Central Time. Record requests for emergency care only can be directed to [phone] at any time.[facility] Allergies Active Allergy Reactions Criticality Noted [...] often do you attend chur ch or adventist services? Never 02/28/2022 Do you belong to any clubs o r organizations such as evangelical groups, unions, fraternal or athletic groups, or [...] and heating? Not hard at all 08/23/2022 [facility] - Occupational Stress Questionnaire Answer Date [...] your living situation today? I have a [facility] place to live 08/23/2022 Education Answer [...] ??C (96.6 ??F) 03/05/2022 1 0:24 AM TALENT COORDINATOR Respiratory Rate 18 04/21/2016 1:56 PM TALENT COORDINATOR Value from Chartplus. Oxygen Saturation - - Inhaled Oxygen Concentration - - Weight 91.5 kg (201 lb 11.5 oz) 08/30/2022 1:44 PM CDT Height 165.8 cm (5' 5.28) 03/05/2022 1 0:24 AM TALENT COORDINATOR Body Mass Index 33.28 03/05/2022 10:24 AM TALENT COORDINATOR Plan of Treatment Health Maintenance Due Date [...] Press ure Check / Re-check 08/31/2023 08/30/2022 Influenza Vaccine (#1) 2023 3, 12/17/2021, 02/07/2021, Additional history exists DTaP,Tdap,and Td Vaccines (2 - Td or Tdap) 01/14/2025 01/14/2015 Pneumococcal vaccine (65+ years) Completed 12/05/19 16, 01/14/2015 Zoster Vaccines Completed 07/11/2022, 02/2018, 11/22/2011 Medical Devices Implanted Type Area Cyber Security Specialist Device Identifier Shelf Expiration Date Model / Serial / Lot Standard-Screw Rodrigo 4.5 X 50 - [place] [id number] Implanted:Qty: 1 on 11/22/2015 Hardware e.g. pins/screws /rods Depuy Synthes Description:Device Manufactu rer - [employer]. Device Status Text - HARDWARE-39788. Standard-Screw Rodrigo 4.5 X 30 - [place] [id number] Implanted:Qty: 2 on 11/22/2015 Hardware e.g. pins/screws /rods Depuy Synthes Description:Device Manufactu rer - [employer]Point. Device Status Text - HARDWARE-16066. Standard-Screw Rodrigo 4.5 X 32 - [place] [id number] Implanted:Qty: 1 on 11/22/2015 Hardware e.g. pins/screws /rods Depuy Synthes Description:Device Manufactu rer - Synthes. Device Status Text - HARDWARE-77670. Standard-Screw Rodrigo 4.5 X 40 - [place] [id number] Implanted:Qty: 1 on 11/22/2015 Hardware e.g. pins/screws /rods Depuy Synthes Description:Device Manufactu rer - Synthes. Device Status Text - HARDWARE-52420. Dcp-Plate T 6ho - [place] [id number] Implanted:Qty: 1 on 11/22/2015 Hardware e.g. pins/screws /rods Depuy Synthes Description:Device Manufactu rer - Synthes. Device Status Text - HARDWARE-93120. Triathlon-Femor al Modular Peg - [place] [id number] Implanted:Qty: 1 on 11/22/2015 Knee Implant Other/Legacy - See Implant Description Antione Description:Device Manufactu rer - [place] Rudy.. Body Location - Other. Left. Device Status Text - KNEE [id number]. Triathlon-Tibia l Comp #4 Ps 9mm - [place] [id number] Implanted:Qty: 1 on 11/22/2015 Knee Implant Other/Legacy - See Implant Description Antione Description:Device Manufactu rer - Antione Rudy.. Body Location - Other. Not Applicable. Device Status Text - KNEE IMP-1437957. Triathlon-Inser t X3 Tib 9mm #4 - [place] [id number] Implanted:Qty: 1 on 11/22/2015 Knee Implant Other/Legacy - See Implant Description Antione Description:Device Manufactu rer - Antione Rudy.. Body Location - Other. Left. Device Status Text - KNEE [id number]. Triathlon-Tibia l Baseplate [place] #4 - Forrest [id number] Implanted:Qty: 1 on 11/22/2015 Knee Implant Other/Legacy - See Implant Description Antione Description:Device Manufactu rer - Antione Rudy.. Body Location - Other. Left. Device Status Text - KNEE IMP-[id number]. Triathlon-Stem Alex. Exten. 12 X 50mm - [place] [id number] Implanted:Qty: 1 on 11/22/2015 Knee Implant Other/Legacy - See Implant Description Antione Description:Device Manufactu rer - Antione Rudy.. Body Location - Other. Left. Device Status Text - KNEE [id number]. Triathlon-Femor al Cemented #5 Lt - [place] [id number] Implanted:Qty: 1 on 11/22/2015 Knee Implant Other/Legacy - See Implant Description Antione Description:Device Manufactu rer - [place] Rudy.. Body Location - Other. Left. Device Status Text - KNEE IMP-[id number]. Triathlon-Femor al Modular Peg - [place] [id number] Implanted:Qty: 1 on 04/19/2016 Knee Implant Other/Legacy - See Implant Description [place] Description:Device Manufactu rer - Antione Rudy.. Body Location - Other. Right. Device Status Text - KNEE IMP-4114732. Triathlon-Tibia l Baseplate [place] #4 - Forrest [id number] Implanted:Qty: 1 on 04/19/2016 Knee Implant Other/Legacy - See Implant Description [place] Description:Device Manufactu rer - [place] Rudy.. Body Location - Other. Right. Device Status Text - KNEE IMP-[id number]. Triathlon-Femor al Cemented #5 Rt - [place] [id number] Implanted:Qty: 1 on 04/19/2016 Knee Implant Other/Legacy - See Implant Description [place] Description:Device Manufactu rer - [place] Rudy.. Body Location - Other. Right. Device Status Text - KNEE IMP-8257227. Triathlon-Inser t X3 Tib 9mm #4 - Forrest [id number] Implanted:Qty: 1 on 04/19/2016 Knee Implant Other/Legacy - See Implant Description Antione Description:Device Manufactu rer - [place] Rudy.. Body Location - Other. Right. Device Status Text - KNEE IMP-6623176. Plug Bone [place] 24mm - [place] [id number] Implanted:Qty: 1 on 11/22/2015 Mesh or Patch [place] Description:Device Manufactu rer - [place] Rudy.. Device Status Text - MESHPATCH-470. Cement Bone Large - [place] [id number] Implanted:Qty: 3 on 11/22/2015 Misc Other Antione Description:Device Manufactu rer - [place] Rudy.. Device Status Text - MISCOTHER-2840. Cement Bone Large - [place] [id number] Implanted:Qty: 2 on 04/19/2016 Misc Other Antione Description:Device Manufactu rer - [place] Rudy.. Device Status Text - MISCOTHER-2840. Cornea - [place] [id number] Implanted:Qty: 1 on 08/31/2008 Ocular (Eye) Implant Right: Other/Legacy - See Implant Description [facility] Description:Device Manufactu rer - [facility]. Body Location - Right. Device Status Text - OCULARIMP-631469. Cornea - [place] [id number] Implanted:Qty: 1 on 05/15/2011 Ocular (Eye) Implant Left: Other/Legacy - See Implant Description [facility] Description:Device Manufactu rer - [facility]. Body Location - Left. Device Status Text - OCULARIMP-157274. Lens 6.0x21.5 Gq08yf-66.5 - [place] [id number] Implanted:Qty: 1 on 08/31/2008 Ocular Lens Right: Other/Legacy - See Implant Description [employer] Description:Device Manufactu rer - [employer]. Body Location - Right. Device Status Text - OCULRLENS-689026. Lens 6.0x21.5 Sk17ia-42.5 - [place] [id number] Implanted:Qty: 1 on 05/15/2011 Ocular Lens Left: Other/Legacy - See Implant Description [employer] Description:Device Manufactu rer - [employer]. Body Location - Left. Device Status Text - OCULRLENS-895798. Procedures Procedure Name Priority Date/Time Associated Diagnosis Comments EXTI CREATININE WITH EGFR, S/P Routine 06/20/2018 8:45 AM CDT ELECTROLYTE (CHEM 4) PANEL, S/P Routine 04/21/2016 4:57 AM TALENT COORDINATOR HEMOGLOBIN A1C, B Routine 05/15/2011 10: 12 AM CDT OPHTHALMOLOGY IMAGE EXAM Routine 01/03/2009 12:00 AM TALENT COORDINATOR from Last 3 Months or Most Recently Relevant to Health Maintenance Results * (ABNORMAL) Electrolyte (Chem 4) Panel (04/21/2016 4:57 AM TALENT COORDINATOR) Chloride, S 96(L) 98 - 107 MMOL/L [facility] HX Bicarbonate, P/S 23 22 - 29 MMOL/L [facility] Creatinine 0.6 0.6 - 1.1 MG/DL [facility] BUN (Blood Urea Nitrogen), S 6 6 - 21 MG/DL [facility] Sodium, S 136 135 - 145 MMOL/L [facility] Potassium, S 4.1 3.6 - 5.2 MMOL/L [facility] Anion Gap 17(H) 7 - 15 [facility] Glucose, S 181(H) 70 - 140 MG/DL [facility] 04/21/2016 4:57 AM TALENT COORDINATOR 04/21/2016 4:57 AM TALENT COORDINATOR Edwar Vazquez M.D. LAB BLOOD ADD-ON Performing Organization Address City/[facility]/ZIP Co de Phone Number [facility] [address] * (ABNORMAL) Hemoglobin A1c (05/15/2011 10:12 AM CDT) Hemoglobin A1c, B 6.2(H) 4.0 - 6.0 % [facility] 05/15/2011 10:1 2 AM CDT 05/15/2011 10:12 AM CDT Krishan Reno P.A.-C. LAB BLOOD ADD-O N Performing Organization Address City/[facility]/ZIP Co de Phone Number [facility] [address] * OPHTHALMOLOGY IMAGE EXAM (01/03/2009 12:00 AM TALENT COORDINATOR) Anatomical Region Laterality Modality Other 01/03/2009 Addenda Addendum by Provider, Mady Quiñonez on 01/03/2009 12:00 AM TALENT COORDINATOR OPH^^^MCR [facility] 01/03/2009 00:00:00 Historical Provider IMG NON RAD IMAGING PROCEDURES from Last 3 Months or Most Recently Relevant to Health Maintenance Advance Directives For more information, please contact: [phone] Documents on File Type Date Recorded Patient Pressure Testing Technician Expl anation Advance Directives 05/15/2011 12:00 AM Leg acy document. See document viewer. Advance Directives 05/15/2011 12:00 AM Leg acy document. See document viewer.
--- OUTSIDE RECORDS SUMMARY | 2023-09-13 01:46 | XMS_ITS | Encounter Summary ---
Author Organization [facility] Address [address] [place] [address] Care Team Providers Care Communications Coordinator Name Role Phone Unavailable Primary Care [...] #4 DM CDM Reports - EYEGEN Id: [id number] Status: Fnl documented in this encounter Plan of Treatment Not on file documented as of this encounter Visit Diagnoses Not on filedocumented in this encounter
== END 2023-09-10 11:01 | disposition home or self-care (01) ==
LOC: NFLDREF 09-13 01:44
PROVIDERS: PCP Family Medicine; Referring Provider Family Medicine; Visit Provider Family Medicine
DX: E78.5 Hyperlipidemia, unspecified (principal); E11.9 Type 2 diabetes mellitus without complications; I10 Essential (primary) hypertension
CPT/HCPCS: 80053; 80061; 82043; 82570

== ENCOUNTER 2023-09-18 14:34 | Outpatient (CLI) | payer MEDICARE, BC, SELFPAY ==
--- OUTSIDE RECORDS SUMMARY | 2023-09-18 14:36 | XMS_ITS | Encounter Summary ---
Author Organization [facility] Address [address] [place] [address] Care Team Providers Care Long Term Care Phlebotomist Name Role Phone Unavailable Primary Care Provider [...] #2 cataract CDM Reports - EYEGEN Id: [id number] Status: Fnl documented in this encounter Plan of Treatment Not on file documented as of this encounter Visit Diagnoses Not on filedocumented in this encounter
--- OUTSIDE RECORDS SUMMARY | 2023-09-18 14:36 | XMS_ITS | Encounter Summary ---
Author Organization [facility] Address [address] [place] [address] Care Team Providers Care Stock Ranch Supervisor Name Role Phone Unavailable Primary Care [...] #3 fuchs CDM Reports - EYEGEN Id: [id number] Status: Fnl documented in this encounter Plan of Treatment Not on file documented as of this encounter Visit Diagnoses Not on filedocumented in this encounter
--- OUTSIDE RECORDS SUMMARY | 2023-09-18 14:36 | XMS_ITS | Encounter Summary ---
Author Organization [facility] Address [address] [place] [address] Care Team Providers Care Medicaid Eligibility Specialist Name Role Phone Unavailable Primary Care [...] #2 cataract CDM Reports - EYEGEN Id: [id number] Status: Fnl documented in this encounter Plan of Treatment Not on file documented as of this encounter Visit Diagnoses Not on filedocumented in this encounter
--- OUTSIDE RECORDS SUMMARY | 2023-09-18 14:36 | XMS_ITS | Encounter Summary ---
Author Organization [facility] Address [address] [place] [address] Care Team Providers Care Veneer Stapler Name Role Phone Unavailable Primary Care Provider [...] #4 DM CDM Reports - EYEGEN Id: [id number] Status: Fnl documented in this encounter Plan of Treatment Not on file documented as of this encounter Visit Diagnoses Not on filedocumented in this encounter
--- OUTSIDE RECORDS SUMMARY | 2023-09-18 14:36 | XMS_ITS | Encounter Summary ---
Author Organization [facility] Address [address] [place] [address] Care Team Providers Care Alodize Machine Operator Name Role Phone Unavailable Primary [...] #3 fuchs CDM Reports - EYEGEN Id: [id number] Status: Fnl documented in this encounter Plan of Treatment Not on file documented as of this encounter Visit Diagnoses Not on filedocumented in this encounter
--- OUTSIDE RECORDS SUMMARY | 2023-09-18 14:36 | XMS_ITS | Clinical Summary ---
Author Organization [facility] Address [address] [place] [address] Care Team Providers Care Distribution Manager Name Role Phone Unavailable Primary Care Provider Unavailabl e Source Comments Patient records contain information from all sites at [facility]. For routine questions regarding patient records, call [phone] during business hours, M-F 8:00 AM - 5:00 PM Central Time. Record requests for emergency care only can be directed to [phone] at any time.[facility] Allergies Active Allergy Reactions Criticality Noted Date [...] often do you attend chur ch or orthodoxy services? Never 02/28/2022 Do you belong to any clubs o r organizations such as buddhism groups, unions, fraternal or athletic groups, or [...] and heating? Not hard at all 08/23/2022 [facility] - [facility]ational Stress Questionnaire Answer Date [...] your living situation today? I have a [facility] place to live 08/23/2022 Education Answer [...] ??C (96.6 ??F) 03/05/2022 1 0:24 AM MEAT LOINER Respiratory Rate 18 04/21/2016 1:56 PM MEAT LOINER Value from Chartplus. Oxygen Saturation - - Inhaled Oxygen Concentration - - Weight 91.5 kg (201 lb 11.5 oz) 08/30/2022 1:44 PM CDT Height 165.8 cm (5' 5.28) 03/05/2022 1 0:24 AM MEAT LOINER Body Mass Index 33.28 03/05/2022 10:24 AM MEAT LOINER Plan of Treatment Health Maintenance Due Date [...] Re-check 08/31/2023 08/30/2022 Influenza Vaccine (#1) 2023 , 12/17/2021, 02/07/2021, Additional history exists DTaP,Tdap,and Td Vaccines (2 - Td or Tdap) 01/14/2025 01/14/2015 Pneumococcal vaccine (65+ years) Completed 12/05/19 16, 01/14/2015 Zoster Vaccines Completed 07/11/2022, 02/2018, 11/22/2011 Medical Devices Implanted Type Area Power Regulator Device Identifier Shelf Expiration Date Model / Serial / Lot Standard-Screw Rodrigo 4.5 X 50 - [place] [id number] Implanted:Qty: 1 on 11/22/2015 Hardware e.g. pins/screws /rods Depuy Synthes Description:Device Manufactu rer - [employer]. Device Status Text - HARDWARE-44917. Standard-Screw Rodrigo 4.5 X 30 - [place] [id number] Implanted:Qty: 2 on 11/22/2015 Hardware e.g. pins/screws /rods Depuy Synthes Description:Device Manufactu rer - [employer]. Device Status Text - HARDWARE-65996. Standard-Screw Rodrigo 4.5 X 32 - [place] [id number] Implanted:Qty: 1 on 11/22/2015 Hardware e.g. pins/screws /rods Depuy Synthes Description:Device Manufactu rer - Synthes. Device Status Text - HARDWARE-13318. Standard-Screw Rodrigo 4.5 X 40 - [place] [id number] Implanted:Qty: 1 on 11/22/2015 Hardware e.g. pins/screws /rods Depuy Synthes Description:Device Manufactu rer - Synthes. Device Status Text - HARDWARE-03637. Dcp-Plate T 6ho - [place] [id number] Implanted:Qty: 1 on 11/22/2015 Hardware e.g. pins/screws /rods Depuy Synthes Description:Device Manufactu rer - Synthes. Device Status Text - HARDWARE-33768. Triathlon-Femor al Modular Peg - [place] [id number] Implanted:Qty: 1 on 11/22/2015 Knee Implant Other/Legacy - See Implant Description [place] Description:Device Manufactu rer - [place] Rudy.. Body Location - Other. Left. Device Status Text - KNEE IMP-5262570. Triathlon-Tibia l Comp #4 Ps 9mm - Forrest [id number] Implanted:Qty: 1 on 11/22/2015 Knee Implant Other/Legacy - See Implant Description [place] Description:Device Manufactu rer - Antione Rudy.. Body Location - Other. Not Applicable. Device Status Text - KNEE IMP-1926421. Triathlon-Inser t X3 Tib 9mm #4 - [place] [id number] Implanted:Qty: 1 on 11/22/2015 Knee Implant Other/Legacy - See Implant Description Antione Description:Device Manufactu rer - [place] Rudy.. Body Location - Other. Left. Device Status Text - KNEE IMP-2157091. Triathlon-Tibia l Baseplate [place] #4 - Forrest [id number] Implanted:Qty: 1 on 11/22/2015 Knee Implant Other/Legacy - See Implant Description Antione Description:Device Manufactu rer - Antione Rudy.. Body Location - Other. Left. Device Status Text - KNEE IMP-7452541. Triathlon-Stem Alex. Exten. 12 X 50mm - Forrest [id number] Implanted:Qty: 1 on 11/22/2015 Knee Implant Other/Legacy - See Implant Description [place] Description:Device Manufactu rer - Antione Rudy.. Body Location - Other. Left. Device Status Text - KNEE IMP-2614898. Triathlon-Femor al Cemented #5 Lt - [place] [id number] Implanted:Qty: 1 on 11/22/2015 Knee Implant Other/Legacy - See Implant Description Antione Description:Device Manufactu rer - Antione Rudy.. Body Location - Other. Left. Device Status Text - KNEE IMP-4505615. Triathlon-Femor al Modular Peg - [place] [id number] Implanted:Qty: 1 on 04/19/2016 Knee Implant Other/Legacy - See Implant Description Antione Description:Device Manufactu rer - [place] Rudy.. Body Location - Other. Right. Device Status Text - KNEE IMP-7109483. Triathlon-Tibia l Baseplate [place] #4 - Forrest [id number] Implanted:Qty: 1 on 04/19/2016 Knee Implant Other/Legacy - See Implant Description Antione Description:Device Manufactu rer - Antione Rudy.. Body Location - Other. Right. Device Status Text - KNEE IMP-3738714. Triathlon-Femor al Cemented #5 Rt - [place] [id number] Implanted:Qty: 1 on 04/19/2016 Knee Implant Other/Legacy - See Implant Description Antione Description:Device Manufactu rer - Antione Rudy.. Body Location - Other. Right. Device Status Text - KNEE IMP-9943854. Triathlon-Inser t X3 Tib 9mm #4 - [place] [id number] Implanted:Qty: 1 on 04/19/2016 Knee Implant Other/Legacy - See Implant Description [place] Description:Device Manufactu rer - Antione Rudy.. Body Location - Other. Right. Device Status Text - KNEE IMP-7385773. Plug Bone [place] 24mm - [place] [id number] Implanted:Qty: 1 on 11/22/2015 Mesh or Patch [place] Description:Device Manufactu rer - Antione Rudy.. Device Status Text - MESHPATCH-470. Cement Bone Large - [place] [id number] Implanted:Qty: 3 on 11/22/2015 Misc Other Antione Description:Device Manufactu rer - [place] Rudy.. Device Status Text - MISCOTHER-2840. Cement Bone Large - [place] [id number] Implanted:Qty: 2 on 04/19/2016 Misc Other [place] Description:Device Manufactu rer - Antione Rudy.. Device Status Text - MISCOTHER-2840. Cornea - [place] [id number] Implanted:Qty: 1 on 08/31/2008 Ocular (Eye) Implant Right: Other/Legacy - See Implant Description [facility] Description:Device Manufactu rer - [facility]. Body Location - Right. Device Status Text - OCULARIMP-098071. Cornea - [place] [id number] Implanted:Qty: 1 on 05/15/2011 Ocular (Eye) Implant Left: Other/Legacy - See Implant Description [facility] Description:Device Manufactu rer - [facility]. Body Location - Left. Device Status Text - OCULARIMP-225711. Lens 6.0x21.5 Go14xn-08.5 - [place] [id number] Implanted:Qty: 1 on 08/31/2008 Ocular Lens Right: Other/Legacy - See Implant Description [employer] Description:Device Manufactu rer - [employer]. Body Location - Right. Device Status Text - OCULRLENS-816373. Lens 6.0x21.5 Kd23xc-22.5 - [place] [id number] Implanted:Qty: 1 on 05/15/2011 Ocular Lens Left: Other/Legacy - See Implant Description [employer] Description:Device Manufactu rer - [employer]. Body Location - Left. Device Status Text - OCULRLENS-363178. Procedures Procedure Name Priority Date/Time Associated Diagnosis Comments ELECTROLYTE (CHEM 4) PANEL, S/P Routine 04/21/2016 4:57 AM MEAT LOINER HEMOGLOBIN A1C, B Routine 05/15/2011 10: 12 AM CDT OPHTHALMOLOGY IMAGE EXAM Routine 01/03/2009 12:00 AM MEAT LOINER from Last 3 Months or Most Recently Relevant to Health Maintenance Results * (ABNORMAL) Electrolyte (Chem 4) Panel (04/21/2016 4:57 AM MEAT LOINER) Chloride, S 96(L) 98 - 107 MMOL/L [facility] HX Bicarbonate, P/S 23 22 - 29 MMOL/L [facility] Creatinine 0.6 0.6 - 1.1 MG/DL [facility] BUN (Blood Urea Nitrogen), S 6 6 - 21 MG/DL [facility] Sodium, S 136 135 - 145 MMOL/L [facility] Potassium, S 4.1 3.6 - 5.2 MMOL/L [facility] Anion Gap 17(H) 7 - 15 [facility] Glucose, S 181(H) 70 - 140 MG/DL [facility] 04/21/2016 4:57 AM MEAT LOINER 04/21/2016 4:57 AM MEAT LOINER Edwar Vazquez M.D. LAB BLOOD ADD-ON Performing Organization Address City/[facility]/ZIP Co de Phone Number [facility] [address] * (ABNORMAL) Hemoglobin A1c (05/15/2011 10:12 AM CDT) Hemoglobin A1c, B 6.2(H) 4.0 - 6.0 % [facility] 05/15/2011 10:1 2 AM CDT 05/15/2011 10:12 AM CDT Krishan Reno P.A.-C. LAB BLOOD ADD-O N [facility] [address] * OPHTHALMOLOGY IMAGE EXAM (01/03/2009 12:00 AM MEAT LOINER) Anatomical Region Laterality Modality Other 01/03/2009 Addenda Addendum by ProviderOlamide M.D. on 01/03/2009 12:00 AM MEAT LOINER OPH^^^MCR [facility] 01/03/2009 00:00:00 Historical Provider IMG NON RAD IMAGING PROCEDURES from Last 3 Months or Most Recently Relevant to Health Maintenance Advance Directives For more information, please contact: [phone] Documents on File Type Date Recorded Patient Boat Dock Operator Expl anation Advance Directives 05/15/2011 12:00 AM Leg acy document. See document viewer. Advance Directives 05/15/2011 12:00 AM Leg acy document. See document viewer.
--- OUTSIDE RECORDS SUMMARY | 2023-09-18 14:36 | XMS_ITS | Encounter Summary ---
Author Organization [facility] Address [address] [place] [address] Care Team Providers Care Employer Relations Representative Name Role Phone Unavailable Primary Care [...] #3 fuchs CDM Reports - EYEGEN Id: [id number] Status: Fnl documented in this encounter Plan of Treatment Not on file documented as of this encounter Visit Diagnoses Not on filedocumented in this encounter
--- OUTSIDE RECORDS SUMMARY | 2023-09-18 14:36 | XMS_ITS | Encounter Summary ---
Author Organization [facility] Address [address] [place] [address] Care Team Providers Care Creel Selector Name Role Phone Unavailable Primary Care Provider [...] #1 keratopalsty CDM Reports - EYEGEN Id: [id number] Status: Fnl documented in this encounter Plan of Treatment Not on file documented as of this encounter Visit Diagnoses Not on filedocumented in this encounter
--- OUTSIDE RECORDS SUMMARY | 2023-09-18 14:36 | XMS_ITS ---
Author Organization [facility] Address [address] [place] [address] Care Team Providers Care Diesel Plant Operator Name Role Phone Unavailable Unavailable Unavailable Surgery Details Not on file Complications Check Surgery Details section. Procedure Estimated Blood Loss Check Surgery Details section. Procedure Findings Check Surgery Details section. Procedure Specimens Taken Check Surgery Details section.
--- OUTSIDE RECORDS SUMMARY | 2023-09-18 14:36 | XMS_ITS | Encounter Summary ---
Author Organization [facility] Address [address] [place] [address] Care Team Providers Care Field Instructor Name Role Phone Unavailable Primary Care Provider Unavailabl e Encounter Details Date Type Department Care Team (Late st Contact Info) Description 06/08/2011 Historical Ophthalmology RST OPH Roberto Carlos Blanton M.D. [address] [place] [id number] Social History Tobacco Use Types Packs/Day Years [...] left eye CDM Reports - EYEGEN Id: [id number] Status: Fnl documented in this encounter Plan of Treatment Not on file documented as of this encounter Visit Diagnoses Not on filedocumented in this encounter
--- OUTSIDE RECORDS SUMMARY | 2023-09-18 14:36 | XMS_ITS | Encounter Summary ---
Author Organization [facility] Address [address] [place] [address] Care Team Providers Care Ostrich Farmer Name Role Phone Unavailable Primary Care Provider [...] Document Viewer. CDM Reports - EYEPO Id: [id number] Status: Fnl documented in this encounter Plan of Treatment Not on file documented as of this encounter Visit Diagnoses Not on filedocumented in this encounter
--- OUTSIDE RECORDS SUMMARY | 2023-09-18 14:36 | XMS_ITS | Encounter Summary ---
Author Organization [facility] Address [address] [place] [address] Care Team Providers Care Maintenance Fitter Name Role Phone Unavailable Primary Care Provider [...] #1 meme CDM Reports - EYEGEN Id: [id number] Status: Fnl documented in this encounter Plan of Treatment Not on file documented as of this encounter Visit Diagnoses Not on filedocumented in this encounter
--- OUTSIDE RECORDS SUMMARY | 2023-09-18 14:36 | XMS_ITS | Clinical Summary ---
Author Organization [facility] Address [place], [place] [address] Care Team Providers Care Silver Solderer Name Role Phone Joan Aragon MD Primary [...] CDT Respiratory Rate 16 02/13/2016 2:08 PM WALLPAPER REMOVER STEAM Oxygen Saturation 96% 07/02/2018 2:57 PM CDT Inhaled Oxygen Concentration - - Weight 94.8 kg (209 lb) 01/07/2020 1:52 PM WALLPAPER REMOVER STEAM Height 165.1 cm (5' 5) 01/07/2020 1:52 PM WALLPAPER REMOVER STEAM Body Mass Index 34.78 01/07/2020 1:52 PM WALLPAPER REMOVER STEAM Plan of Treatment Health Maintenance Due Date [...] 01/14/2015 Tdap Completed 01/14/2015, 01/14/2015 Care Teams Silver Solderer Relationship Specialty Start Date End Date Joan Aragon MD [address] [place] [address] PCP - General Family Practice 01/25/16
--- OUTSIDE RECORDS SUMMARY | 2023-09-18 14:36 | XMS_ITS | Encounter Summary ---
Author Organization [facility] Address [address] [place] [address] Care Team Providers Care Drafter Electromechanical Name Role Phone Unavailable Primary Care Provider [...] CVI current. CDM Reports - EYESV Id: [id number] Status: Fnl documented in this encounter Plan of Treatment Not on file documented as of this encounter Visit Diagnoses Not on filedocumented in this encounter
--- OUTSIDE RECORDS SUMMARY | 2023-09-18 14:36 | XMS_ITS | Encounter Summary ---
Author Organization [facility] Address [address] [place] [address] Care Team Providers Care Supervisor Dumping Name Role Phone Unavailable Primary Care Provider [...] Document Viewer. CDM Reports - EYEPO Id: [id number] Status: Fnl documented in this encounter Plan of Treatment Not on file documented as of this encounter Visit Diagnoses Not on filedocumented in this encounter
--- OUTSIDE RECORDS SUMMARY | 2023-09-18 14:36 | XMS_ITS | Encounter Summary ---
Author Organization [facility] Address [address] [place] [address] Care Team Providers Care Electronics Design Engineer Name Role Phone Unavailable Primary Care [...] #1 keratoplasty CDM Reports - EYEGEN Id: [id number] Status: Fnl documented in this encounter Plan of Treatment Not on file documented as of this encounter Visit Diagnoses Not on filedocumented in this encounter
--- OUTSIDE RECORDS SUMMARY | 2023-09-18 14:36 | XMS_ITS | Encounter Summary ---
Author Organization [facility] Address [address] [place] [address] Care Team Providers Care Map Maker Name Role Phone Unavailable Primary Care Provider Unavailabl e Encounter Details Date Type Department Care Team (Late st Contact Info) Description 05/28/2011 Historical Ophthalmology RST OPH Roberto Carlos Blanton M.D. [address] [place] [address] Social History Tobacco Use Types Packs/Day Years [...] left eye CDM Reports - EYEGEN Id: [id number] Status: Fnl documented in this encounter Plan of Treatment Not on file documented as of this encounter Visit Diagnoses Not on filedocumented in this encounter
--- OUTSIDE RECORDS SUMMARY | 2023-09-18 14:36 | XMS_ITS | Referral Summary ---
Author Organization [facility] Address [address] [place] [address] Care Team Providers Care Dock Boss Name Role Phone Unavailable Primary Care Provider Unavailabl e Source Comments Patient records contain information from all sites at [facility]. For routine questions regarding patient records, call [phone] during business hours, M-F 8:00 AM - 5:00 PM Central Time. Record requests for emergency care only can be directed to [phone] at any time.[facility] Allergies Active Allergy Reactions Criticality Noted [...] often do you attend chur ch or tenriism services? Never 02/28/2022 Do you belong to any clubs o r organizations such as rastafari groups, unions, fraternal or athletic groups, or [...] and heating? Not hard at all 08/23/2022 [facility] - Occupational Stress Questionnaire Answer Date Recorded [...] your living situation today? [facility] 08/23/2022 Education Answer Date [...] ??C (96.6 ??F) 03/05/2022 1 0:24 AM EXECUTIVE SEARCH CONSULTANT Respiratory Rate 18 04/21/2016 1:56 PM EXECUTIVE SEARCH CONSULTANT Value from [employer]. Oxygen Saturation - - Inhaled Oxygen Concentration - - Weight 91.5 kg (201 lb 11.5 oz) 08/30/2022 1:44 PM CDT Height 165.8 cm (5' 5.28) 03/05/2022 1 0:24 AM EXECUTIVE SEARCH CONSULTANT Body Mass Index 33.28 03/05/2022 10:24 AM EXECUTIVE SEARCH CONSULTANT Plan of Treatment Not on file Medical Devices Implanted Type Area Airplane Coverer Device Identifier Shelf Expiration Date Model / Serial / Lot Standard-Screw Rodrigo 4.5 X 50 - Forrest [id number] Implanted:Qty: 1 on 11/22/2015 Hardware e.g. pins/screws /rods [employer]iftyNet Description:Device Manufactu [facility] Synthes. Device Status Text - [id number]. Standard-Screw Rodrigo 4.5 X 30 - Forrest [id number] Implanted:Qty: 2 on 11/22/2015 Hardware e.g. pins/screws /rods Depuy Synthes Description:Device Manufactu rer - Synthes. Device Status Text - HARDWARE-14444. Standard-Screw Rodrigo 4.5 X 32 - Forrest [id number] Implanted:Qty: 1 on 11/22/2015 Hardware e.g. pins/screws /rods Depuy Synthes Description:Device Manufactu rer - Synthes. Device Status Text - HARDWARE-77732. Standard-Screw Rodrigo 4.5 X 40 - Forrest [id number] Implanted:Qty: 1 on 11/22/2015 Hardware e.g. pins/screws /rods Depuy Synthes Description:Device Manufactu rer - Synthes. Device Status Text - HARDWARE-94848. Dcp-Plate T 6ho - Forrest [id number] Implanted:Qty: 1 on 11/22/2015 Hardware e.g. pins/screws /rods [employer]uy Synthes Description:Device Manufactu rer - Synthes. Device Status Text - HARDWARE-28398. Triathlon-Femor al Modular Peg - Forrest [id number] Implanted:Qty: 1 on 11/22/2015 Knee Implant Other/Legacy - See Implant Description Antione Description:Device Manufactu rer - [employer]ione Rudy.. Body Location - Other. Left. Device Status Text - KNEE [id number]. Triathlon-Tibia l Comp #4 Ps 9mm - Forrest [id number] Implanted:Qty: 1 on 11/22/2015 Knee Implant Other/Legacy - See Implant Description [place] Description:Device Manufactu rer - [place] Rudy.. Body Location - Other. Not Applicable. Device Status Text - KNEE [id number]. Triathlon-Inser t X3 Tib 9mm #4 - Forrest [id number] Implanted:Qty: 1 on 11/22/2015 Knee Implant Other/Legacy - See Implant Description [employer]ione Description:Device Manufactu rer - [employer] Rudy.. Body Location - Other. Left. Device Status Text - KNEE [id number]. Triathlon-Tibia l Baseplate [place] #4 - Forrest [id number] Implanted:Qty: 1 on 11/22/2015 Knee Implant Other/Legacy - See Implant Description [place] Description:Device Manufactu rer - [employer] Rudy.. Body Location - Other. Left. Device Status Text - KNEE [id number]. Triathlon-Stem Alex. Exten. 12 X 50mm - Forrest [id number] Implanted:Qty: 1 on 11/22/2015 Knee Implant Other/Legacy - See Implant Description [employer]ione Description:Device Manufactu rer - [place] Rudy.. Body Location - Other. Left. Device Status Text - KNEE [id number]. Triathlon-Femor al Cemented #5 Lt - Forrest [id number] Implanted:Qty: 1 on 11/22/2015 Knee Implant Other/Legacy - See Implant Description [place] Description:Device Manufactu rer - [place] Rudy.. Body Location - Other. Left. Device Status Text - KNEE [id number]. Triathlon-Femor al Modular Peg - Forrest [id number] Implanted:Qty: 1 on 04/19/2016 Knee Implant Other/Legacy - See Implant Description [place] Description:Device Manufactu rer - [place] Rudy.. Body Location - Other. Right. Device Status Text - KNEE [id number]. Triathlon-Tibia l Baseplate [place] #4 - Forrest [id number] Implanted:Qty: 1 on 04/19/2016 Knee Implant Other/Legacy - See Implant Description [place] Description:Device Manufactu rer - [employer]ione Rudy.. Body Location - Other. Right. Device Status Text - KNEE [id number]. Triathlon-Femor al Cemented #5 Rt - Forrest [id number] Implanted:Qty: 1 on 04/19/2016 Knee Implant Other/Legacy - See Implant Description [place] Description:Device Manufactu rer - Antione Rudy.. Body Location - Other. Right. Device Status Text - KNEE [id number]. Triathlon-Inser t X3 Tib 9mm #4 - Forrest [id number] Implanted:Qty: 1 on 04/19/2016 Knee Implant Other/Legacy - See Implant Description Antione Description:Device Manufactu rer - Antione Rudy.. Body Location - Other. Right. Device Status Text - KNEE IMP-0759504. Plug Bone [place] 24mm - Forrest [id number] Implanted:Qty: 1 on 11/22/2015 Mesh or Patch [employer] Description:Device Manufactu rer - [place] Rudy.. Device Status Text - MESHPATCH-470. Cement Bone Large - [place] [id number] Implanted:Qty: 3 on 11/22/2015 [facility] Other Antione Description:Device Manufactu rer - [place] Rudy.. Device Status Text - MISCOTHER-2840. Cement Bone Large - [place] [id number] Implanted:Qty: 2 on 04/19/2016 [facility] Other Antione Description:Device Manufactu rer - [place] Rudy.. Device Status Text - MISCOTHER-2840. Cornea - Forrest [id number] Implanted:Qty: 1 on 08/31/2008 Ocular (Eye) Implant Right: Other/Legacy - See Implant Description [facility] Description:Device Manufactu rer - [facility]. Body Location - Right. Device Status Text - [id number]. Cornea - [place] [id number] Implanted:Qty: 1 on 05/15/2011 Ocular (Eye) Implant Left: Other/Legacy - See Implant Description [facility] Description:Device Manufactu rer - [facility]. Body Location - Left. Device Status Text - [id number]. Lens 6.0x21.5 Lh12oc-78.5 - Forrest [id number] Implanted:Qty: 1 on 08/31/2008 Ocular Lens Right: Other/Legacy - See Implant Description [employer] Description:Device Manufactu rer - [employer]. Body Location - Right. Device Status Text - [id number]. Lens 6.0x21.5 Za41ww-19.5 - Forrest [id number] Implanted:Qty: 1 on 05/15/2011 Ocular Lens Left: Other/Legacy - See Implant Description [employer] Description:Device Manufactu rer - [employer]. Body Location - Left. Device Status Text - [id number]-832595. Procedures Procedure Name Priority Date/Time Associated Diagnosis Comments ELECTROLYTE (CHEM 4) PANEL, S/P Routine 04/21/2016 4:57 AM EXECUTIVE SEARCH CONSULTANT HEMOGLOBIN A1C, B Routine 05/15/2011 10: 12 AM CDT OPHTHALMOLOGY IMAGE EXAM Routine 01/03/2009 12:00 AM EXECUTIVE SEARCH CONSULTANT from Last 3 Months or Most Recently Relevant to Health Maintenance Results * (ABNORMAL) Electrolyte (Chem 4) Panel (04/21/2016 4:57 AM EXECUTIVE SEARCH CONSULTANT) Chloride, S 96(L) 98 - 107 MMOL/L [...] CENTER Anion Gap 17(H) 7 - 15 [facility] Glucose, S 181(H) 70 - 140 MG/DL [facility] 04/21/2016 4:57 AM EXECUTIVE SEARCH CONSULTANT 04/21/2016 4:57 AM EXECUTIVE SEARCH CONSULTANT Edwar Vazquez M.D. LAB BLOOD ADD-ON Performing Organization Address City/[facility]/ZIP Co de Phone Number [facility] [address] * (ABNORMAL) Hemoglobin A1c (05/15/2011 10:12 AM CDT) Hemoglobin A1c, B 6.2(H) 4.0 - 6.0 % [facility] 05/15/2011 10:1 2 AM CDT 05/15/2011 10:12 AM CDT Krishan Reno P.A.-C. LAB BLOOD ADD-O N Performing Organization Address City/[facility]/ZIP Co de Phone Number [facility] [address] * OPHTHALMOLOGY IMAGE EXAM (01/03/2009 12:00 AM EXECUTIVE SEARCH CONSULTANT) Anatomical Region Laterality Modality Other 01/03/2009 Addenda Addendum by ProviderOlamide M.D. on 01/03/2009 12:00 AM EXECUTIVE SEARCH CONSULTANT OPH^^^MCR [facility] 01/03/2009 00:00:00 Historical Provider IMG NON RAD IMAGING PROCEDURES from Last 3 Months or Most Recently Relevant to Health Maintenance Advance Directives For more information, please contact: [phone] Documents on File Type Date Recorded Patient Fruit Sprayer Expl anation Advance Directives 05/15/2011 12:00 AM Leg acy document. See document viewer. Advance Directives 05/15/2011 12:00 AM Leg acy document. See document viewer.
--- OUTSIDE RECORDS SUMMARY | 2023-09-18 14:36 | XMS_ITS | Encounter Summary ---
Author Organization [facility] Address [address] [place] [address] Care Team Providers Care Sign Hanger Name Role Phone Unavailable Primary Care Provider Unavailabl e Encounter Details Date Type Department Care Team (Late st Contact Info) Description 07/15/2008 Historical Ophthalmology RST OPH Lurdes Clark C.O.A. [address] [place] [address] Social History Tobacco Use Types Packs/Day Years [...] scheduled. MARSHALL CDM Reports - EYESV Id: [id number] Status: Fnl documented in this encounter Plan of Treatment Not on file documented as of this encounter Visit Diagnoses Not on filedocumented in this encounter
--- OUTSIDE RECORDS SUMMARY | 2023-09-18 14:36 | XMS_ITS | Encounter Summary ---
Author Organization [facility] Address [address] [place] [address] Care Team Providers Care Workers Compensation Administrator Name Role Phone Unavailable Primary Care [...] #1 fucchristiano CDM Reports - EYEGEN Id: [id number] Status: Fnl documented in this encounter Plan of Treatment Not on file documented as of this encounter Visit Diagnoses Not on filedocumented in this encounter
--- NOTE | 2023-09-18 15:00 | CRLHL7_ITS ---
For Patients: As a result of the Cures Act, medical imaging exams and procedure reports are released immediately into your electronic medical record. You may view this report before your referring provider. If you have questions, please contact your health care provider. INDICATION: Pelvic and perineal pain COMPARISON: none TECHNIQUE: 2D chaves scale and color Doppler images were acquired of the pelvis using a transabdominal and transvaginal approach. FINDINGS: The uterus is absent. The ovaries are not visualized. There are no suspicious fluid collections within the cul-de-sac. IMPRESSION: No pelvic mass or fluid. Dictated by Carrington Shaikh MD @ 09/20/2023 12:36:20 PM (Electronically Signed)
== END 2023-09-18 14:35 | disposition home or self-care (01) ==
PROVIDERS: PCP Family Medicine; Visit Provider Family Medicine
DX: R10.2 Pelvic and perineal pain (principal)
CPT/HCPCS: 76830; 76856

== ENCOUNTER 2023-11-12 11:06 | Outpatient (CLI) | payer MEDICARE, BC, SELFPAY ==
--- OUTSIDE RECORDS SUMMARY | 2023-11-14 09:44 | XMS_ITS | Encounter Summary ---
Author Organization [facility] Address [address] [place] [address] Care Team Providers Care Grain Broker Name Role Phone Unavailable Primary Care Provider [...] #3 fuchs CDM Reports - EYEGEN Id: [id number] Status: Fnl documented in this encounter Plan of Treatment Not on file documented as of this encounter Visit Diagnoses Not on filedocumented in this encounter
--- OUTSIDE RECORDS SUMMARY | 2023-11-14 09:44 | XMS_ITS | Encounter Summary ---
Author Organization [facility] Address [address] [place] [address] Care Team Providers Care Log Hooker Name Role Phone Unavailable Primary Care Provider Unavailabl e Encounter Details Date Type Department Care Team (Late st Contact Info) Description 05/28/2011 Historical Ophthalmology RST OPH Roberto Carlos Blanton M.D. [address] [place] [address] Social History Tobacco Use Types Packs/Day Years [...] left eye CDM Reports - EYEGEN Id: [id number] Status: Fnl documented in this encounter Plan of Treatment Not on file documented as of this encounter Visit Diagnoses Not on filedocumented in this encounter
--- OUTSIDE RECORDS SUMMARY | 2023-11-14 09:44 | XMS_ITS | Encounter Summary ---
Author Organization [facility] Address [address] [place] [address] Care Team Providers Care Food And Beverage Server Name Role Phone Unavailable Primary Care Provider [...] #1 keratopalsty CDM Reports - EYEGEN Id: [id number] Status: Fnl documented in this encounter Plan of Treatment Not on file documented as of this encounter Visit Diagnoses Not on filedocumented in this encounter
--- OUTSIDE RECORDS SUMMARY | 2023-11-14 09:44 | XMS_ITS | Encounter Summary ---
Author Organization [facility] Address [address] [place] [address] Care Team Providers Care Engine Installer Name Role Phone Unavailable Primary Care Provider [...] #1 keratoplasty CDM Reports - EYEGEN Id: [id number] Status: Fnl documented in this encounter Plan of Treatment Not on file documented as of this encounter Visit Diagnoses Not on filedocumented in this encounter
--- OUTSIDE RECORDS SUMMARY | 2023-11-14 09:44 | XMS_ITS | Encounter Summary ---
Author Organization [facility] Address [address] [place] [address] Care Team Providers Care Butcher Fish Name Role Phone Unavailable Primary Care Provider [...] #4 DM CDM Reports - EYEGEN Id: [id number] Status: Fnl documented in this encounter Plan of Treatment Not on file documented as of this encounter Visit Diagnoses Not on filedocumented in this encounter
--- OUTSIDE RECORDS SUMMARY | 2023-11-14 09:44 | XMS_ITS | Clinical Summary ---
Author Organization [facility] Address [address] [place] [address] Care Team Providers Care Vp Integration Name Role Phone Unavailable Primary Care Provider Unavailabl e Source Comments Patient records contain information from all sites at [facility]. For routine questions regarding patient records, call [phone] during business hours, M-F 8:00 AM - 5:00 PM Central Time. Record requests for emergency care only can be directed to [phone] at any time.[facility] Allergies Active Allergy Reactions Criticality Noted Date [...] Immunizations Name Administration Dates Next Due influenza trivalent high dose (HD)(PF) 6 Family History Medical History Relation Name Comments [...] often do you attend chur ch or hoahaoism services? Never 02/28/2022 Do you belong to any clubs o r organizations such as druze groups, unions, fraternal or athletic groups, or [...] all 08/23/2022 [facility] of Occupat ionid Health - Occupational Stress Questionnaire Answer Date [...] your living situation today? I have a [facility] place to live 08/23/2022 Education Answer Date [...] ??C (96.6 ??F) 03/05/2022 1 0:24 AM HAMMER HEATER Respiratory Rate 18 04/21/2016 1:56 PM HAMMER HEATER Value from Chartplus. Oxygen Saturation - - Inhaled Oxygen Concentration - - Weight 91.5 kg (201 lb 11.5 oz) 08/30/2022 1:44 PM CDT Height 165.8 cm (5' 5.28) 03/05/2022 1 0:24 AM HAMMER HEATER Body Mass Index 33.28 03/05/2022 10:24 AM HAMMER HEATER Plan of Treatment Health Maintenance Due Date [...] Press ure Check / Re-check 08/31/2023 08/30/2022 COVID-19 Vaccine (2022-03 4 season) 2023 12/20/2022, 12/17/2021, 08/01/2021, Additional history exists Influenza Vaccine (#1) 2023 , 12/17/2021, 02/07/2021, Additional history exists DTaP,Tdap,and Td Vaccines (2 - Td or Tdap) 01/14/2025 01/14/2015 Pneumococcal vaccine (65+ years) Completed 12/05/19 16, 01/14/2015 Zoster Vaccines Completed 07/11/2022, 02/2018, 11/22/2011 Medical Devices Implanted Type Area Senior Procurement Manager Device Identifier Shelf Expiration Date Model / Serial / Lot Standard-Screw Rodrigo 4.5 X 50 - Forrest [id number] Implanted:Qty: 1 on 11/22/2015 Hardware e.g. pins/screws /rods Depuy Synthes Description:Device Manufactu rer - [employer]. Device Status Text - HARDWARE-25011. Standard-Screw Rodrigo 4.5 X 30 - Forrest [id number] Implanted:Qty: 2 on 11/22/2015 Hardware e.g. pins/screws /rods Depuy Synthes Description:Device Manufactu rer - [employer]. Device Status Text - HARDWARE-62773. Standard-Screw Rodrigo 4.5 X 32 - Forrest [id number] Implanted:Qty: 1 on 11/22/2015 Hardware e.g. pins/screws /rods Depuy Synthes Description:Device Manufactu rer - Synthes. Device Status Text - HARDWARE-29185. Standard-Screw Rodrigo 4.5 X 40 - Forrest [id number] Implanted:Qty: 1 on 11/22/2015 Hardware e.g. pins/screws /rods Depuy Synthes Description:Device Manufactu rer - Synthes. Device Status Text - HARDWARE-40987. Dcp-Plate T 6ho - Forrest [id number] Implanted:Qty: 1 on 11/22/2015 Hardware e.g. pins/screws /rods Depuy Synthes Description:Device Manufactu rer - Synthes. Device Status Text - HARDWARE-73356. Triathlon-Femor al Modular Peg - Forrest [id number] Implanted:Qty: 1 on 11/22/2015 Knee Implant Other/Legacy - See Implant Description [place] Description:Device Manufactu rer - [place] Rudy.. Body Location - Other. Left. Device Status Text - KNEE [id number]. Triathlon-Tibia l Comp #4 Ps 9mm - Forrest [id number] Implanted:Qty: 1 on 11/22/2015 Knee Implant Other/Legacy - See Implant Description Antione Description:Device Manufactu rer - [place] Rudy.. Body Location - Other. Not Applicable. Device Status Text - KNEE IMP-[id number]. Triathlon-Inser t X3 Tib 9mm #4 - Forrest [id number] Implanted:Qty: 1 on 11/22/2015 Knee Implant Other/Legacy - See Implant Description Antione Description:Device Manufactu rer - [employer] Rudy.. Body Location - Other. Left. Device Status Text - KNEE [id number]. Triathlon-Tibia l Baseplate [place] #4 - Forrest [id number] Implanted:Qty: 1 on 11/22/2015 Knee Implant Other/Legacy - See Implant Description [place] Description:Device Manufactu rer - [employer] Rudy.. Body Location - Other. Left. Device Status Text - KNEE IMP-[id number]. Triathlon-Stem Alex. Exten. 12 X 50mm - Forrest [id number] Implanted:Qty: 1 on 11/22/2015 Knee Implant Other/Legacy - See Implant Description Antione Description:Device Manufactu rer - [employer] Rudy.. Body Location - Other. Left. Device Status Text - KNEE IMP-2963266. Triathlon-Femor al Cemented #5 Lt - Forrest [id number] Implanted:Qty: 1 on 11/22/2015 Knee Implant Other/Legacy - See Implant Description [place] Description:Device Manufactu rer - [place] Rudy.. Body Location - Other. Left. Device Status Text - KNEE [id number]. Triathlon-Femor al Modular Peg - [place] [id number] Implanted:Qty: 1 on 04/19/2016 Knee Implant Other/Legacy - See Implant Description [place] Description:Device Manufactu rer - [employer] Rudy.. Body Location - Other. Right. Device Status Text - KNEE IMP-9614684. Triathlon-Tibia l Baseplate [place] #4 - Forrest [id number] Implanted:Qty: 1 on 04/19/2016 Knee Implant Other/Legacy - See Implant Description [place] Description:Device Manufactu rer - [employer] Rudy.. Body Location - Other. Right. Device Status Text - KNEE IMP-[id number]. Triathlon-Femor al Cemented #5 Rt - Forrest [id number] Implanted:Qty: 1 on 04/19/2016 Knee Implant Other/Legacy - See Implant Description Antione Description:Device Manufactu rer - [place] Rudy.. Body Location - Other. Right. Device Status Text - KNEE IMP-4336914. Triathlon-Inser t X3 Tib 9mm #4 - Forrest [id number] Implanted:Qty: 1 on 04/19/2016 Knee Implant Other/Legacy - See Implant Description [place] Description:Device Manufactu rer - [place] Rudy.. Body Location - Other. Right. Device Status Text - KNEE IMP-0075564. Plug Bone Leisenring 24mm - [place] [id number] Implanted:Qty: 1 on 11/22/2015 Mesh or Patch Antione Description:Device Manufactu rer - Antione Rudy.. Device Status Text - MESHPATCH-470. Cement Bone Large - [place] [id number] Implanted:Qty: 3 on 11/22/2015 Misc Other [place] Description:Device Manufactu rer - [place] Rudy.. Device Status Text - MISCOTHER-2840. Cement Bone Large - [place] [id number] Implanted:Qty: 2 on 04/19/2016 Misc Other [place] Description:Device Manufactu rer - [place] Rudy.. Device Status Text - MISCOTHER-2840. Cornea - [place] [id number] Implanted:Qty: 1 on 08/31/2008 Ocular (Eye) Implant Right: Other/Legacy - See Implant Description [facility] Description:Device Manufactu rer - [facility]. Body Location - Right. Device Status Text - OCULARIMP-487175. Cornea - [place] [id number] Implanted:Qty: 1 on 05/15/2011 Ocular (Eye) Implant Left: Other/Legacy - See Implant Description [facility] Description:Device Manufactu rer - [facility]. Body Location - Left. Device Status Text - OCULARIMP-132612. Lens 6.0x21.5 Lw46ua-91.5 - Forrest [id number] Implanted:Qty: 1 on 08/31/2008 Ocular Lens Right: Other/Legacy - See Implant Description [facility] Description:Device Manufactu rer - [employer]. Body Location - Right. Device Status Text - OCULRLENS-042445. Lens 6.0x21.5 Gr06yd-93.5 - [place] [id number] Implanted:Qty: 1 on 05/15/2011 Ocular Lens Left: Other/Legacy - See Implant Description [facility] Description:Device Manufactu rer - [employer]. Body Location - Left. Device Status Text - OCULRLENS-625565. Procedures Procedure Name Priority Date/Time Associated Diagnosis Comments ELECTROLYTE (CHEM 4) PANEL, S/P Routine 04/21/2016 4:57 AM HAMMER HEATER HEMOGLOBIN A1C, B Routine 05/15/2011 10: 12 AM CDT OPHTHALMOLOGY IMAGE EXAM Routine 01/03/2009 12:00 AM HAMMER HEATER from Last 3 Months or Most Recently Relevant to Health Maintenance Results * (ABNORMAL) Electrolyte (Chem 4) Panel (04/21/2016 4:57 AM HAMMER HEATER) Chloride, S 96(L) 98 - 107 MMOL/L [facility] HX Bicarbonate, P/S 23 22 - 29 MMOL/L [facility] Creatinine 0.6 0.6 - 1.1 MG/DL [facility] BUN (Blood Urea Nitrogen), S 6 6 - 21 MG/DL [facility] Sodium, S 136 135 - 145 MMOL/L [facility] Potassium, S 4.1 3.6 - 5.2 MMOL/L [facility] Anion Gap 17(H) 7 - 15 [facility] Glucose, S 181(H) 70 - 140 MG/DL [facility] 04/21/2016 4:57 AM HAMMER HEATER 04/21/2016 4:57 AM HAMMER HEATER Edwar Vazquez M.D. LAB BLOOD ADD-ON [facility] [address] * (ABNORMAL) Hemoglobin A1c (05/15/2011 10:12 AM CDT) Hemoglobin A1c, B 6.2(H) 4.0 - 6.0 % [facility] 05/15/2011 10:1 2 AM CDT 05/15/2011 10:12 AM CDT Krishan Reno P.A.-C. LAB BLOOD ADD-O N [facility] [address] * OPHTHALMOLOGY IMAGE EXAM (01/03/2009 12:00 AM HAMMER HEATER) Anatomical Region Laterality Modality Other 01/03/2009 Addenda Addendum by ProviderOlamide M.D. on 01/03/2009 12:00 AM HAMMER HEATER OPH^^^MCR [employer] 01/03/2009 00:00:00 Historical Provider IMG NON RAD IMAGING PROCEDURES from Last 3 Months or Most Recently Relevant to Health Maintenance Advance Directives For more information, please contact: [phone] Documents on File Type Date Recorded Patient Operating Engineer Expl anation Advance Directives 05/15/2011 12:00 AM Leg acy document. See document viewer. Advance Directives 05/15/2011 12:00 AM Leg acy document. See document viewer.
--- OUTSIDE RECORDS SUMMARY | 2023-11-14 09:44 | XMS_ITS | Referral Summary ---
Author Organization [facility] Address [address] [place] [address] Care Team Providers Care Carcass Splitter Name Role Phone Unavailable Primary Care Provider Unavailabl e Source Comments Patient records contain information from all sites at [facility]. For routine questions regarding patient records, call [phone] during business hours, M-F 8:00 AM - 5:00 PM Central Time. Record requests for emergency care only can be directed to [phone] at any time.[facility] Allergies Active Allergy Reactions Criticality Noted Date [...] Due influenza trivalent high dose (HD)(PF) 6 Social History Tobacco Use Types Packs/Day Years [...] often do you attend chur ch or scientology services? Never 02/28/2022 Do you belong to any clubs o r organizations such as shinto groups, unions, fraternal or athletic groups, or [...] and heating? Not hard at all 08/23/2022 [facility] of Occupat ional Health - Occupational Stress [...] your living situation today? I have a [facility] place to live 08/23/2022 Education Answer [...] ??C (96.6 ??F) 03/05/2022 1 0:24 AM REAL ESTATE ACQUISITION ANALYST Respiratory Rate 18 04/21/2016 1:56 PM REAL ESTATE ACQUISITION ANALYST Value from Chartplus. Oxygen Saturation - - Inhaled Oxygen Concentration - - Weight 91.5 kg (201 lb 11.5 oz) 08/30/2022 1:44 PM CDT Height 165.8 cm (5' 5.28) 03/05/2022 1 0:24 AM REAL ESTATE ACQUISITION ANALYST Body Mass Index 33.28 03/05/2022 10:24 AM REAL ESTATE ACQUISITION ANALYST Plan of Treatment Not on file Medical Devices Implanted Type Area Barrel Rifler Hook Device Identifier Shelf Expiration Date Model / Serial / Lot Standard-Screw Rodrigo 4.5 X 50 - Forrest [id number] Implanted:Qty: 1 on 11/22/2015 Hardware e.g. pins/screws /rods [employer] Description:Device Manufactu [facility] Synthes. Device Status Text - HARDWARE-75134. Standard-Screw Rodrigo 4.5 X 30 - [place] [id number] Implanted:Qty: 2 on 11/22/2015 Hardware e.g. pins/screws /rods Depuy Synthes Description:Device Manufactu rer - Synthes. Device Status Text - HARDWARE-09510. Standard-Screw Rodrigo 4.5 X 32 - Forrest [id number] Implanted:Qty: 1 on 11/22/2015 Hardware e.g. pins/screws /rods Depuy Synthes Description:Device Manufactu rer - Synthes. Device Status Text - HARDWARE-92230. Standard-Screw Rodrigo 4.5 X 40 - [place] [id number] Implanted:Qty: 1 on 11/22/2015 Hardware e.g. pins/screws /rods Depuy Synthes Description:Device Manufactu rer - Synthes. Device Status Text - HARDWARE-72805. Dcp-Plate T 6ho - [place] [id number] Implanted:Qty: 1 on 11/22/2015 Hardware e.g. pins/screws /rods Depuy Synthes Description:Device Manufactu rer - Synthes. Device Status Text - HARDWARE-33059. Triathlon-Femor al Modular Peg - [place] [id number] Implanted:Qty: 1 on 11/22/2015 Knee Implant Other/Legacy - See Implant Description [employer]ione Description:Device Manufactu rer - [place] Rudy.. Body Location - Other. Left. Device Status Text - KNEE IMP-8592278. Triathlon-Tibia l Comp #4 Ps 9mm - Forrest [id number] Implanted:Qty: 1 on 11/22/2015 Knee Implant Other/Legacy - See Implant Description [place] Description:Device Manufactu rer - [place] Rudy.. Body Location - Other. Not Applicable. Device Status Text - KNEE IMP-1351914. Triathlon-Inser t X3 Tib 9mm #4 - Forrest [id number] Implanted:Qty: 1 on 11/22/2015 Knee Implant Other/Legacy - See Implant Description [employer]ione Description:Device Manufactu rer - [place] Rudy.. Body Location - Other. Left. Device Status Text - KNEE IMP-5742194. Triathlon-Tibia l Baseplate [place] #4 - Forrest [id number] Implanted:Qty: 1 on 11/22/2015 Knee Implant Other/Legacy - See Implant Description [place] Description:Device Manufactu rer - [place] Rudy.. Body Location - Other. Left. Device Status Text - KNEE IMP-4780154. Triathlon-Stem Alex. Exten. 12 X 50mm - Forrest [id number] Implanted:Qty: 1 on 11/22/2015 Knee Implant Other/Legacy - See Implant Description [place] Description:Device Manufactu rer - [place] Rudy.. Body Location - Other. Left. Device Status Text - KNEE IMP-9017227. Triathlon-Femor al Cemented #5 Lt - Forrest [id number] Implanted:Qty: 1 on 11/22/2015 Knee Implant Other/Legacy - See Implant Description Antione Description:Device Manufactu rer - Ant[place] Rudy.. Body Location - Other. Left. Device Status Text - KNEE IMP-5123106. Triathlon-Femor al Modular Peg - [place] [id number] Implanted:Qty: 1 on 04/19/2016 Knee Implant Other/Legacy - See Implant Description Antione Description:Device Manufactu rer - Antione Rudy.. Body Location - Other. Right. Device Status Text - KNEE IMP-0713349. Triathlon-Tibia l Baseplate [place] #4 - Forrest [id number] Implanted:Qty: 1 on 04/19/2016 Knee Implant Other/Legacy - See Implant Description [employer]ione Description:Device Manufactu rer - [place] Rudy.. Body Location - Other. Right. Device Status Text - KNEE IMP-7679392. Triathlon-Femor al Cemented #5 Rt - [place] [id number] Implanted:Qty: 1 on 04/19/2016 Knee Implant Other/Legacy - See Implant Description Antione Description:Device Manufactu rer - [place] Rudy.. Body Location - Other. Right. Device Status Text - KNEE IMP-9690313. Triathlon-Inser t X3 Tib 9mm #4 - [place] [id number] Implanted:Qty: 1 on 04/19/2016 Knee Implant Other/Legacy - See Implant Description [place] Description:Device Manufactu rer - [place] Rudy.. Body Location - Other. Right. Device Status Text - KNEE IMP-2847806. Plug Bone [place] 24mm - Forrest [id number] Implanted:Qty: 1 on 11/22/2015 Mesh or Patch Antione Description:Device Manufactu rer - [place] Rudy.. Device Status Text - MESHPATCH-470. Cement Bone Large - [place] [id number] Implanted:Qty: 3 on 11/22/2015 [facility] Other [place] Description:Device Manufactu rer - Ant[place] Rudy.. Device Status Text - MISCOTHER-2840. Cement Bone Large - [place] [id number] Implanted:Qty: 2 on 04/19/2016 [facility] Other Antione Description:Device Manufactu rer - [place] Rudy.. Device Status Text - MISCOTHER-2840. Cornea - Forrest [id number] Implanted:Qty: 1 on 08/31/2008 Ocular (Eye) Implant Right: Other/Legacy - See Implant Description [facility] Description:Device Manufactu rer - [facility]. Body Location - Right. Device Status Text - OCULARIMP-829988. Cornea - Forrest [id number] Implanted:Qty: 1 on 05/15/2011 Ocular (Eye) Implant Left: Other/Legacy - See Implant Description [facility] Description:Device Manufactu rer - [facility]. Body Location - Left. Device Status Text - OCULARIMP-874273. Lens 6.0x21.5 Jm39lg-21.5 - Forrest [id number] Implanted:Qty: 1 on 08/31/2008 Ocular Lens Right: Other/Legacy - See Implant Description [facility] Description:Device Manufactu rer - [employer]. Body Location - Right. Device Status Text - OCULRLENS-656590. Lens 6.0x21.5 Wr63rj-37.5 - Forrest [id number] Implanted:Qty: 1 on 05/15/2011 Ocular Lens Left: Other/Legacy - See Implant Description [facility] Description:Device Manufactu rer - [employer]. Body Location - Left. Device Status Text - OCULRLENS-136502. Procedures Procedure Name Priority Date/Time Associated Diagnosis Comments ELECTROLYTE (CHEM 4) PANEL, S/P Routine 04/21/2016 4:57 AM REAL ESTATE ACQUISITION ANALYST HEMOGLOBIN A1C, B Routine 05/15/2011 10: 12 AM CDT OPHTHALMOLOGY IMAGE EXAM Routine 01/03/2009 12:00 AM REAL ESTATE ACQUISITION ANALYST from Last 3 Months or Most Recently Relevant to Health Maintenance Results * (ABNORMAL) Electrolyte (Chem 4) Panel (04/21/2016 4:57 AM REAL ESTATE ACQUISITION ANALYST) Chloride, S 96(L) 98 - 107 MMOL/L [facility] HX Bicarbonate, P/S 23 22 - 29 MMOL/L [facility] Creatinine 0.6 0.6 - 1.1 MG/DL [facility] BUN (Blood Urea Nitrogen), S 6 6 - 21 MG/DL [facility] Sodium, S 136 135 - 145 MMOL/L [facility] Potassium, S 4.1 3.6 - 5.2 MMOL/L [facility] Anion Gap 17(H) 7 - 15 [facility] Glucose, S 181(H) 70 - 140 MG/DL [facility] 04/21/2016 4:57 AM REAL ESTATE ACQUISITION ANALYST 04/21/2016 4:57 AM REAL ESTATE ACQUISITION ANALYST Edwar Vazquez M.D. LAB BLOOD ADD-ON Performing Organization Address City/[facility]/ZIP Co de Phone Number [facility] [address] * (ABNORMAL) Hemoglobin A1c (05/15/2011 10:12 AM CDT) Hemoglobin A1c, B 6.2(H) 4.0 - 6.0 % [facility] 05/15/2011 10:1 2 AM CDT 05/15/2011 10:12 AM CDT Krishan Reno P.A.-C. LAB BLOOD ADD-O N Performing Organization Address City/[facility]/ZIP Co de Phone Number [facility] [address] * OPHTHALMOLOGY IMAGE EXAM (01/03/2009 12:00 AM REAL ESTATE ACQUISITION ANALYST) Anatomical Region Laterality Modality Other 01/03/2009 Addenda Addendum by ProviderOlamide M.D. on 01/03/2009 12:00 AM REAL ESTATE ACQUISITION ANALYST OPH^^^MCR [facility] 01/03/2009 00:00:00 Historical Provider IMG NON RAD IMAGING PROCEDURES from Last 3 Months or Most Recently Relevant to Health Maintenance Advance Directives For more information, please contact: [phone] Documents on File Type Date Recorded Patient Director Financial Systems Expl anation Advance Directives 05/15/2011 12:00 AM Leg acy document. See document viewer. Advance Directives 05/15/2011 12:00 AM Leg acy document. See document viewer.
--- OUTSIDE RECORDS SUMMARY | 2023-11-14 09:44 | XMS_ITS | Encounter Summary ---
Author Organization [facility] Address [address] [place] [address] Care Team Providers Care Animal Services Officer Name Role Phone Unavailable Primary Care Provider [...] Document Viewer. CDM Reports - EYEPO Id: [id number] Status: Fnl documented in this encounter Plan of Treatment Not on file documented as of this encounter Visit Diagnoses Not on filedocumented in this encounter
--- OUTSIDE RECORDS SUMMARY | 2023-11-14 09:44 | XMS_ITS | Encounter Summary ---
Author Organization [facility] Address [address] [place] [address] Care Team Providers Care Product Grader Name Role Phone Unavailable Primary Care [...] Document Viewer. CDM Reports - EYEPO Id: [id number] Status: Fnl documented in this encounter Plan of Treatment Not on file documented as of this encounter Visit Diagnoses Not on filedocumented in this encounter
--- OUTSIDE RECORDS SUMMARY | 2023-11-14 09:44 | XMS_ITS ---
Author Organization [facility] Address [address] [place] [address] Care Team Providers Care Gift Basket Packer Name Role Phone Unavailable Unavailable Unavailable Surgery Details Not on file Complications Check Surgery Details section. Procedure Estimated Blood Loss Check Surgery Details section. Procedure Findings Check Surgery Details section. Procedure Specimens Taken Check Surgery Details section.
--- OUTSIDE RECORDS SUMMARY | 2023-11-14 09:44 | XMS_ITS | Encounter Summary ---
Author Organization [facility] Address [address] [place] [address] Care Team Providers Care In Store Banker Name Role Phone Unavailable Primary Care Provider Unavailabl e Encounter Details Date Type Department Care Team (Late st Contact Info) Description 06/08/2011 Historical Ophthalmology [facility] Roberto Carlos Blanton M.D. [address] [place] [address] Social History Tobacco Use Types Packs/Day Years [...] left eye CDM Reports - EYEGEN Id: [id number] Status: Fnl documented in this encounter Plan of Treatment Not on file documented as of this encounter Visit Diagnoses Not on filedocumented in this encounter
--- OUTSIDE RECORDS SUMMARY | 2023-11-14 09:44 | XMS_ITS | Encounter Summary ---
Author Organization [facility] Address [address] [place] [address] Care Team Providers Care Java J2Ee Architect Name Role Phone Unavailable Primary Care [...] #1 fucchristiano CDM Reports - EYEGEN Id: [id number] Status: Fnl documented in this encounter Plan of Treatment Not on file documented as of this encounter Visit Diagnoses Not on filedocumented in this encounter
--- OUTSIDE RECORDS SUMMARY | 2023-11-14 09:44 | XMS_ITS | Encounter Summary ---
Author Organization [facility] Address [address] [place] [address] Care Team Providers Care Fixed Assets Accountant Name Role Phone Unavailable Primary Care Provider [...] #1 meme CDM Reports - EYEGEN Id: [id number] Status: Fnl documented in this encounter Plan of Treatment Not on file documented as of this encounter Visit Diagnoses Not on filedocumented in this encounter
--- OUTSIDE RECORDS SUMMARY | 2023-11-14 09:44 | XMS_ITS | Encounter Summary ---
Author Organization [facility] Address [address] [place] [address] Care Team Providers Care Senior Care Specialist Name Role Phone Unavailable Primary Care [...] CVI current. CDM Reports - EYESV Id: [id number] Status: Fnl documented in this encounter Plan of Treatment Not on file documented as of this encounter Visit Diagnoses Not on filedocumented in this encounter
--- OUTSIDE RECORDS SUMMARY | 2023-11-14 09:44 | XMS_ITS | Clinical Summary ---
Author Organization [facility] Address [place], [place] [address] Care Team Providers Care Emergency Management Coordinator Name Role Phone Joan Aragon MD Primary [...] CDT Respiratory Rate 16 02/13/2016 2:08 PM BASKETBALL PLAYER Oxygen Saturation 96% 07/02/2018 2:57 PM CDT Inhaled Oxygen Concentration - - Weight 94.8 kg (209 lb) 01/07/2020 1:52 PM BASKETBALL PLAYER Height 165.1 cm (5' 5) 01/07/2020 1:52 PM BASKETBALL PLAYER Body Mass Index 34.78 01/07/2020 1:52 PM BASKETBALL PLAYER Plan of Treatment Health Maintenance Due Date Last Done Comments Depression screening for age 12+ 1956 Hepatitis C screening for ag e 18-79 1962 RSV vaccine for adults or (1 - 1-dose 60+ series) 2004 DEXA/DXA scan for age 65+ 2009 Medicare Wellness for age 65+ 2009 Zoster (shingles) series for age 50+ (2 of 3) 01/17/2012 11/22/2011 Pneumococcal series for age 65+ (2 of 2 - PCV) 12/04/2016 12/05/2015 BMI (ht and wt on same day) for age 18+ 01/06/2021 01/07/2020, 09/26/2016 COVID-19 vaccine series ( - 2022- season) 2023 Influenza for age 65+ 10/27/2023 12/19/2017 , 11/16/2015, 10/27/2015, Additional history exists Tetanus booster 01/14/2025 01/14/2015, 01/14/2015 Tdap Completed 01/14/2015, 01/14/2015 Care Teams Emergency Management Coordinator Relationship Specialty Start Date End Date Joan Aragon MD [address] [place] [address] PCP - General Family Practice 01/25/16
--- OUTSIDE RECORDS SUMMARY | 2023-11-14 09:44 | XMS_ITS | Encounter Summary ---
Author Organization [facility] Address [address] [place] [address] Care Team Providers Care Wheel Cleaner Name Role Phone Unavailable Primary Care Provider [...] #3 fuchs CDM Reports - EYEGEN Id: [id number] Status: Fnl documented in this encounter Plan of Treatment Not on file documented as of this encounter Visit Diagnoses Not on filedocumented in this encounter
--- OUTSIDE RECORDS SUMMARY | 2023-11-14 09:44 | XMS_ITS | Encounter Summary ---
Author Organization [facility] Address [address] [place] [address] Care Team Providers Care Manager International Name Role Phone Unavailable Primary Care Provider [...] #3 fuchs CDM Reports - EYEGEN Id: [id number] Status: Fnl documented in this encounter Plan of Treatment Not on file documented as of this encounter Visit Diagnoses Not on filedocumented in this encounter
--- OUTSIDE RECORDS SUMMARY | 2023-11-14 09:45 | XMS_ITS | Encounter Summary ---
Author Organization [facility] Address [address] [place] [address] Care Team Providers Care Locomotive Observer Name Role Phone Unavailable Primary Care Provider [...] #2 cataract CDM Reports - EYEGEN Id: [id number] Status: Fnl documented in this encounter Plan of Treatment Not on file documented as of this encounter Visit Diagnoses Not on filedocumented in this encounter
--- OUTSIDE RECORDS SUMMARY | 2023-11-14 09:45 | XMS_ITS | Encounter Summary ---
Author Organization [facility] Address [address] [place] [address] Care Team Providers Care Child Nutrition Director Name Role Phone Unavailable Primary Care Provider [...] #2 cataract CDM Reports - EYEGEN Id: [id number] Status: Fnl documented in this encounter Plan of Treatment Not on file documented as of this encounter Visit Diagnoses Not on filedocumented in this encounter
--- OUTSIDE RECORDS SUMMARY | 2023-11-14 09:45 | XMS_ITS | Encounter Summary ---
Author Organization [facility] Address [address] [place] [address] Care Team Providers Care Scraper Tender Name Role Phone Unavailable Primary Care Provider Unavailabl e Encounter Details Date Type Department Care Team (Late st Contact Info) Description 07/15/2008 Historical Ophthalmology RST OPH Lurdes Clark C.O.A. [address] [place] [address] Social History Tobacco Use Types Packs/Day Years [...] (IC) section, preop exam to be scheduled. MARSAHLL CDM Reports - EYESV Id: [id number] Status: Fnl documented in this encounter Plan of Treatment Not on file documented as of this encounter Visit Diagnoses Not on filedocumented in this encounter
== END 2023-11-12 11:07 | disposition home or self-care (01) ==
LOC: NFLDREF 11-14 09:42
PROVIDERS: PCP Family Medicine; Referring Provider Family Medicine; Visit Provider Family Medicine
DX: Z00.00 Encounter for general adult medical examination without abnormal findings (principal); R53.83 Other fatigue; M81.0 Age-related osteoporosis without current pathological fracture; E11.9 Type 2 diabetes mellitus without complications; E55.9 Vitamin D deficiency, unspecified; E78.5 Hyperlipidemia, unspecified; E66.9 Obesity, unspecified
CPT/HCPCS: 80053; 82306; 82607; 84443

== ENCOUNTER 2024-01-21 17:24 | Emergency (ER) | payer MEDICARE, BC, SELFPAY ==
[2024-01-21 17:27] VITALS: BP 125/80; PULSE 98; RESP 18; TEMP 36.9; O2SAT 96; BMI 33.5
--- NOTE | 2024-01-21 17:39 | CRLHL7_ITS ---
For Patients: As a result of the Century Cures Act, medical imaging exams and procedure reports are released immediately into your electronic medical record. You may view this report before your referring provider. If you have questions, please contact your health care provider. Indication: Fall Technique: Volumetric multidetector CT images of the head were obtained without the administration of low osmolar intravenous contrast. Comparison: None available Findings: There is no intra-axial or extra-axial fluid collection. There is no mass effect or midline shift. There is age-related cortical atrophy with mild sulcal widening and ex vacuo dilatation of the lateral ventricles. There are chronic small vessel disease changes in the subcortical and periventricular white matter without lost chaves-white differentiation. The orbits and their contents are grossly within normal limits. 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 Otherwise, the bony calvarium is grossly intact. There is mildly polypoid mucosal thickening within the left sphenoid sinus and posterior ethmoid air cells. The mastoid air cells are well aerated. Impression: Age-related and chronic small-vessel disease changes of the brain without acute intracranial abnormality. Please note that all CT scans at this facility use dose modulation, iterative reconstruction, and/or weight-based dosing when appropriate to reduce radiation dose to as low as reasonably achievable. Dictated by Wilbert De MD @ 01/21/2024 6:39:26 PM (Electronically Signed)
--- NOTE | 2024-01-21 17:39 | CRLHL7_ITS ---
For Patients: As a result of the Cures Act, medical imaging exams and procedure reports are released immediately into your electronic medical record. You may view this report before your referring provider. If you have questions, please contact your health care provider. INDICATION: Knee injury from Fall TECHNIQUE: Knee radiograph 3 views left COMPARISON: None FINDINGS: Bone: Medial metallic plate ORIF of the proximal tibia is noted. On the sunrise view, there is a linear lucency along the lateral pole of the patella. Joint: Total knee arthroplasty is present. No significant knee effusion is seen. Soft tissue: Anterior soft tissue swelling and subcutaneous edema is noted. No radiopaque foreign bodies are seen. Small varicose veins are present surrounding the knee and calf. IMPRESSION: 1. On the sunrise view, there is a linear lucency along the lateral pole of the patella. Correlation with physical exam for focal tenderness in this region is recommended to exclude an acute fracture. Dictated by Emanuel Patton MD @ 01/21/2024 6:34:52 PM Dictated by: Emanuel Patton MD @ 01/21/2024 18:35:01 (Electronically Signed)
--- OUTSIDE RECORDS SUMMARY | 2024-01-21 17:50 | XMS_ITS | Clinical Summary ---
Author Organization [facility] Address [place], [place] [address] Care Team Providers Care Warrant Clerk Name Role Phone Joan Aragon MD Primary [...] 83 07/02/2018 2:58 PM CDT Temperature 37 C (98.6 F) 07/02/2018 2:57 PM CDT Respiratory Rate 16 02/13/2016 2:08 PM ACTIVITIES ATTENDANT Oxygen Saturation 96% 07/02/2018 2:57 PM CDT Inhaled Oxygen Concentration - - Weight 94.8 kg (209 lb) 01/07/2020 1:52 PM ACTIVITIES ATTENDANT Height 165.1 cm (5' 5) 01/07/2020 1:52 PM ACTIVITIES ATTENDANT Body Mass Index 34.78 01/07/2020 1:52 PM ACTIVITIES ATTENDANT Plan of Treatment Health Maintenance Due Date Last Done Comments Depression screening for age 12+ 1956 Hepatitis C screening for ag e 18-79 1962 DEXA/DXA scan for age 65+ 2009 Medicare Wellness for age 65+ 2009 Zoster (shingles) series for age 50+ (2 of 3) 01/17/2012 11/22/2011 Pneumococcal series for age 65+ (2 of 2 - PCV) 12/04/2016 12/05/2015 RSV vaccine for adults or (1 - 1-dose 75+ series) 08/01/2019 BMI (ht and wt on same day) for age 18+ 01/06/2021 01/07/2020, 09/26/2016 COVID-19 vaccine series ( - 2023- season) 2023 Influenza for age 65+ 10/27/2023 12/19/2017 , 11/16/2015, 10/27/2015, Additional history exists Tetanus booster 01/14/2025 01/14/2015, 01/14/2015 Tdap Completed 01/14/2015, 01/14/2015 Care Teams Warrant Clerk Relationship Specialty Start Date End Date Joan Aragon MD [address] [place] [address] PCP - General Family Practice 01/25/16
--- OUTSIDE RECORDS SUMMARY | 2024-01-21 17:51 | XMS_ITS | Encounter Summary ---
Author Organization [facility] Address [address] [place] [address] Care Team Providers Care Windows Systems Administrator Name Role Phone Unavailable Primary Care Provider Unavailabl e Encounter Details Date Type Department Care Team (Late st Contact Info) Description 07/15/2008 Historical Ophthalmology RST OPH Lurdes Clark, C.O.A. [address] [place] [address] Social History Tobacco Use Types Packs/Day Years Used Date Smoking Tobacco: Never Assessed Comments Unknown Sex and Gender Information Value Date Recorded Sex Assigned at Female 12/08/2020 11:58 AM CDT Legal Sex Female 10:41 AM [employer] WARRANT OFFICER Gender Identity Female 12/08/2020 11:58 AM CDT Sexual Orientation Straight 12/08/2020 11 :58 AM CDT documented as of this encounter Progress Notes * Lurdes Clark, C.O.A. - 07/15/2008 4:18 PM CDT Eye Subsequent Visit HISTORY OF PRESENT ILLNESS Preop checklist: preop instructions given, glasses read, sent for IOL measurements, informed consent documented in Informed Consent (IC) section, preop exam to be scheduled. MARSHALL CD Reports - EYESV Id: [id number] Status: Fnl documented in this encounter Plan of Treatment Not on file documented as of this encounter Visit Diagnoses Not on filedocumented in this encounter
--- OUTSIDE RECORDS SUMMARY | 2024-01-21 17:51 | XMS_ITS | Encounter Summary ---
Author Organization [facility] Address [address] [place] [address] Care Team Providers Care Stereo Plotter Operator Name Role Phone Unavailable Primary Care [...] AM CDT Legal Sex Female 10:41 AM AUTO VINYL TOP INSTALLER Gender Identity Female 12/08/2020 11:58 AM CDT [...] #1 keratopalsty CDM Reports - EYEGEN Id: [id number] Status: Fnl documented in this encounter Plan of Treatment Not on file documented as of this encounter Visit Diagnoses Not on filedocumented in this encounter
--- OUTSIDE RECORDS SUMMARY | 2024-01-21 17:51 | XMS_ITS | Encounter Summary ---
Author Organization [facility] Address [address] [place] [address] Care Team Providers Care Content Architect Name Role Phone Unavailable Primary Care [...] AM CDT Legal Sex Female 10:41 AM CLINICAL SECRETARY Gender Identity Female 12/08/2020 11:58 AM CDT [...] #2 cataract CDM Reports - EYEGEN Id: [id number] Status: Fnl documented in this encounter Plan of Treatment Not on file documented as of this encounter Visit Diagnoses Not on filedocumented in this encounter
--- OUTSIDE RECORDS SUMMARY | 2024-01-21 17:51 | XMS_ITS | Encounter Summary ---
Author Organization [facility] Address [address] [place] [address] Care Team Providers Care Services Rep Name Role Phone Unavailable Primary Care Provider [...] AM CDT Legal Sex Female 10:41 AM MAKING MACHINE CATCHER Gender Identity Female 12/08/2020 11:58 AM CDT [...] #3 fuchs CDM Reports - EYEGEN Id: [id number] Status: Fnl documented in this encounter Plan of Treatment Not on file documented as of this encounter Visit Diagnoses Not on filedocumented in this encounter
--- OUTSIDE RECORDS SUMMARY | 2024-01-21 17:51 | XMS_ITS | Encounter Summary ---
Author Organization [facility] Address [address] [place] [address] Care Team Providers Care Lamina Searcher Name Role Phone Unavailable Primary Care Provider [...] AM CDT Legal Sex Female 10:41 AM LOAN INTERVIEWER Gender Identity Female 12/08/2020 11:58 AM CDT [...] #2 cataract CDM Reports - EYEGEN Id: [id number] Status: Fnl documented in this encounter Plan of Treatment Not on file documented as of this encounter Visit Diagnoses Not on filedocumented in this encounter
--- OUTSIDE RECORDS SUMMARY | 2024-01-21 17:51 | XMS_ITS | Encounter Summary ---
Author Organization [facility] Address [address] [place] [address] Care Team Providers Care Light Bulb Assembler Name Role Phone Unavailable Primary Care Provider Unavailabl e Encounter Details Date Type Department Care Team (Late st Contact Info) Description 06/08/2011 Historical Ophthalmology RST OPH Roberto Carlos Blanton M.D. [address] [place] [address] Social History Tobacco Use Types Packs/Day Years Used Date Smoking Tobacco: Never Assessed Comments Unknown Sex and Gender Information Value Date Recorded Sex Assigned at Female 12/08/2020 11:58 AM CDT Legal Sex Female 10:41 AM RECRUITER COORDINATOR Gender Identity Female 12/08/2020 11:58 AM CDT [...] left eye CDM Reports - EYEGEN Id: [id number] Status: Fnl documented in this encounter Plan of Treatment Not on file documented as of this encounter Visit Diagnoses Not on filedocumented in this encounter
--- OUTSIDE RECORDS SUMMARY | 2024-01-21 17:51 | XMS_ITS | Encounter Summary ---
Author Organization [facility] Address [address] [place] [address] Care Team Providers Care Detasseling Crew Supervisor Name Role Phone Unavailable Primary Care Provider Unavailabl e Encounter Details Date Type Department Care Team (Late st Contact Info) Description 05/28/2011 Historical Ophthalmology RST OPH Roberto Carlos Blanton M.D. [address] [place] [address] Social History Tobacco Use Types Packs/Day Years Used Date Smoking Tobacco: Never Assessed Comments Unknown Sex and Gender Information Value Date Recorded Sex Assigned at Female 12/08/2020 11:58 AM CDT Legal Sex Female 10:41 AM INSTITUTIONAL AIDE Gender Identity Female 12/08/2020 11:58 AM CDT [...] left eye CDM Reports - EYEGEN Id: [id number] Status: Fnl documented in this encounter Plan of Treatment Not on file documented as of this encounter Visit Diagnoses Not on filedocumented in this encounter
--- OUTSIDE RECORDS SUMMARY | 2024-01-21 17:51 | XMS_ITS | Referral Summary ---
Author Organization [facility] Address [address] [place] [address] Care Team Providers Care Supervisor Shuttle Veneering Name Role Phone Unavailable Primary Care Provider Unavailabl e Source Comments Patient records contain information from all sites at [facility]. For routine questions regarding patient records, call [phone] during business hours, M-F 8:00 AM - 5:00 PM Central Time. Record requests for emergency care only can be directed to [phone] at any time.[facility] Allergies Active Allergy Reactions Criticality Noted Date Comments Bupropion GI intolerance Low 04/13/2022 Metformin GI intolerance 11/12/2018 Medications albuterol (PROVENTIL HFA,VENTOLIN HFA) 90 mcg/actuation inhaler Inhale 2 puffs. 5 Active fluticasone propion-salmeter oL 250-50 mcg/dose diskus inhaler INL 1 PUFF PO BID 7 Active fluticasone propionate (FLONASE ALLERGY RELIEF) 50 mcg/actuation nasal spray Administer 1 puff into affected nostril(s) daily as needed. 7 Active VICTOZA 3-KELLY 0.6 mg/0.1 mL (18 mg/3 mL) injection ADM 1.8 MG SC D 11 9 Active lisinopril (PRINIVIL,ZESTRI L) 2.5 mg tablet TK 1 T PO D 3 9 Active loratadine (CLARITIN) 10 mg tablet Take 1 tablet by mouth daily as needed. 7 Active LORazepam (ATIVAN) 0.5 mg tablet TK 1 T PO D PRF SEVERE ANXIETY ONLY 8 Active omeprazole (PriLOSEC) [address] capsule TK 1 C PO D 3 9 Active PARoxetine (PAXIL) 20 mg tablet Take 20 mg by mouth. 8 Active BD ULTRA-FINE JB PEN NEEDLE 32 gauge x 5/32 needle U D UTD 3 9 Active prednisoLONE acetate (PRED FORTE) 1 % ophthalmic suspension INT 1 DROP IN OU D 7 Active simvastatin (ZOCOR) 20 mg tablet TK 1 T PO HS 3 9 Active Eliquis 5 mg tablet Take 5 mg by mouth 2 (two) times a day. 1 Active DME CPAPIndications: Apnea Sleep Obstructive DME Order 1 each 11 2 Active glimepiride (AMARYL) 1 mg tablet Take 2 mg by mouth daily with breakfast. 3 Active DME CPAPIndications: Apnea Sleep Obstructive DME Order 1 each 3 Active Active Problems Problem Noted Date Diagnosed [...] often do you attend chur ch or nondenominational services? Never 02/28/2022 Do you belong to any clubs o r organizations such as worship groups, unions, fraternal or athletic groups, or [...] and heating? Not hard at all 08/23/2022 [facility] - Occupational Stress [...] living? No 08/23/2022 Nutrition Answer Date Recorded On average, how many serving s of fruits and vegetables do you eat per day (serving size is equal to 1 cup or approximately the size of a tennis ball)? 2-3 02/28/2022 Dental Answer Date Recorded Dental: Regular Dentist Yes 02/23/20 Employment Answer Date Recorded Employment status Retired 02/28/2022 Housing Stability Answer Date Recorded What is your living situation today? [facility] 08/23/2022 Education Answer Date Recorded What is the highest level of school you have completed or the highest degree you have received? Bachelor's degree (e.g., BA, AB, BS) 05/30/2020 Comments No Sex and Gender Information Value Date Recorded Sex Assigned at Female 12/08/2020 11:58 AM CDT Legal Sex Female 10:41 AM AUTOMOBILE DEALER Gender Identity Female 12/08/2020 11:58 AM CDT Sexual Orientation Straight 12/08/2020 11 :58 AM CDT Last Filed Vital Signs Vital Sign Reading Time Taken Comments Blood Pressure 112/79 08/30/2022 1:44 PM CDT Pulse 80 08/30/2022 1:44 PM CDT Temperature 35.9 C (96.6 F) 03/05/2022 10:24 AM AUTOMOBILE DEALER Respiratory Rate 18 04/21/2016 1:56 PM AUTOMOBILE DEALER Value from [employer]. Oxygen Saturation - - Inhaled Oxygen Concentration - - Weight 91.5 kg (201 lb 11.5 oz) 08/30/2022 1:44 PM CDT Height 165.8 cm (5' 5.28) 03/05/2022 1 0:24 AM AUTOMOBILE DEALER Body Mass Index 33.28 03/05/2022 10:24 AM AUTOMOBILE DEALER Plan of Treatment Not on file Medical Devices Implanted Type Area Aurist Device Identifier Shelf Expiration Date Model / Serial / Lot Standard-Screw Rodrigo 4.5 X 50 - [place] [id number] Implanted:Qty: 1 on 11/22/2015 Hardware e.g. pins/screws /rods Depuy Synthes Description:Device Manufactu rer - Synthes. Device Status Text - [id number]. Standard-Screw Rodrigo 4.5 X 30 - [place] [id number] Implanted:Qty: 2 on 11/22/2015 Hardware e.g. pins/screws /rods Depuy Synthes Description:Device Manufactu rer - Synthes. Device Status Text - HARDWARE-91080. Standard-Screw Rodrigo 4.5 X 32 - Forrest [id number] Implanted:Qty: 1 on 11/22/2015 Hardware e.g. pins/screws /rods Depuy Synthes Description:Device Manufactu rer - Synthes. Device Status Text - HARDWARE-73844. Standard-Screw Rodrigo 4.5 X 40 - Forrest [id number] Implanted:Qty: 1 on 11/22/2015 Hardware e.g. pins/screws /rods Depuy Synthes Description:Device Manufactu rer - Synthes. Device Status Text - HARDWARE-35496. Dcp-Plate T 6ho - Forrest [id number] Implanted:Qty: 1 on 11/22/2015 Hardware e.g. pins/screws /rods Depuy Synthes Description:Device Manufactu rer - Synthes. Device Status Text - HARDWARE-87191. Triathlon-Femor al Modular Peg - Forrest [id number] Implanted:Qty: 1 on 11/22/2015 Knee Implant Other/Legacy - See Implant Description [place] Description:Device Manufactu rer - [place] Rudy.. Body Location - Other. Left. Device Status Text - KNEE [id number]. Triathlon-Tibia l Comp #4 Ps 9mm - Forrest [id number] Implanted:Qty: 1 on 11/22/2015 Knee Implant Other/Legacy - See Implant Description [place] Description:Device Manufactu rer - [place] Rud[employer].. Body Location - Other. Not Applicable. Device Status Text - KNEE [id number]. Triathlon-Inser t X3 Tib 9mm #4 - Forrest [id number] Implanted:Qty: 1 on 11/22/2015 Knee Implant Other/Legacy - See Implant Description [place] Description:Device Manufactu rer - [employer].. Body Location - Other. Left. Device Status Text - KNEE [id number]. Triathlon-Tibia l Baseplate [place] #4 - Forrest [id number] Implanted:Qty: 1 on 11/22/2015 Knee Implant Other/Legacy - See Implant Description [place] Description:Device Manufactu rer - [place] Rudy.. Body Location - Other. Left. Device Status Text - KNEE [id number]. Triathlon-Stem Alex. Exten. 12 X 50mm - Forrest [id number] Implanted:Qty: 1 on 11/22/2015 Knee Implant Other/Legacy - See Implant Description [employer] Description:Device Manufactu rer - [employer] Rudy.. Body Location - Other. Left. Device Status Text - KNEE [id number]. Triathlon-Femor al Cemented #5 Lt - Forrest [id number] Implanted:Qty: 1 on 11/22/2015 Knee Implant Other/Legacy - See Implant Description [place] Description:Device Manufactu rer - [place] Rudy.. Body Location - Other. Left. Device Status Text - KNEE [id number]. Triathlon-Femor al Modular Peg - [place] [id number] Implanted:Qty: 1 on 04/19/2016 Knee Implant Other/Legacy - See Implant Description [employer] Description:Device Manufactu rer - [employer] Rudy.. Body Location - Other. Right. Device Status Text - KNEE [id number]. Triathlon-Tibia l Baseplate [place] #4 - Forrest [id number] Implanted:Qty: 1 on 04/19/2016 Knee Implant Other/Legacy - See Implant Description [place] Description:Device Manufactu rer - [place] Rudy.. Body Location - Other. Right. Device Status Text - KNEE [id number]. Triathlon-Femor al Cemented #5 Rt - [place] [id number] Implanted:Qty: 1 on 04/19/2016 Knee Implant Other/Legacy - See Implant Description [place] Description:Device Manufactu rer - [employer] Rudy.. Body Location - Other. Right. Device Status Text - KNEE [id number]. Triathlon-Inser t X3 Tib 9mm #4 - [place] [id number] Implanted:Qty: 1 on 04/19/2016 Knee Implant Other/Legacy - See Implant Description [place] Description:Device Manufactu rer - [place] Rudy.. Body Location - Other. Right. Device Status Text - KNEE [id number]. Plug Bone [place] 24mm - [place] [id number] Implanted:Qty: 1 on 11/22/2015 Mesh or Patch [place] Description:Device Manufactu rer - [employer] Rudy.. Device Status Text - [id number]-470. Cement Bone Large - [place] [id number] Implanted:Qty: 3 on 11/22/2015 [facility] Other [place] Description:Device Manufactu rer - [place] Rudy.. Device Status Text - MISCOTHER-2840. Cement Bone Large - [place] [id number] Implanted:Qty: 2 on 04/19/2016 [facility] Other [place] Description:Device Manufactu rer - [place] Rudy.. Device Status Text - MISCOTHER-2840. Cornea - [place] [id number] Implanted:Qty: 1 on 08/31/2008 Ocular (Eye) Implant Right: Other/Legacy - See Implant Description [facility] Description:Device Manufactu rer - [facility]. Body Location - Right. Device Status Text - [id number]. Cornea - [place] [id number] Implanted:Qty: 1 on 05/15/2011 Ocular (Eye) Implant Left: Other/Legacy - See Implant Description [facility] Description:Device Manufactu rer - [facility]. Body Location - Left. Device Status Text - [id number]. Lens 6.0x21.5 Ic20me-75.5 - [place] [id number] Implanted:Qty: 1 on 08/31/2008 Ocular Lens Right: Other/Legacy - See Implant Description [employer] Description:Device Manufactu rer - [employer]. Body Location - Right. Device Status Text - [id number]. Lens 6.0x21.5 Ck28ug-52.5 - [place] [id number] Implanted:Qty: 1 on 05/15/2011 Ocular Lens Left: Other/Legacy - See Implant Description [employer] Description:Device Manufactu rer - [employer]. Body Location - Left. Device Status Text - [id number]-739058. Procedures Procedure Name Priority Date/Time Associated Diagnosis Comments ELECTROLYTE (CHEM 4) PANEL, S/P Routine 04/21/2016 4:57 AM AUTOMOBILE DEALER HEMOGLOBIN A1C, B Routine 05/15/2011 10: 12 AM CDT OPHTHALMOLOGY IMAGE EXAM Routine 01/03/2009 12:00 AM AUTOMOBILE DEALER from Last 3 Months or Most Recently Relevant to Health Maintenance Results * (ABNORMAL) Electrolyte (Chem 4) Panel (04/21/2016 4:57 AM AUTOMOBILE DEALER) Chloride, S 96(L) 98 - 107 MMOL/L [facility] HX Bicarbonate, P/S 23 22 - 29 MMOL/L [facility] Creatinine 0.6 0.6 - 1.1 MG/DL [facility] BUN (Blood Urea Nitrogen), S 6 6 - 21 MG/DL [facility] Sodium, S 136 135 - 145 MMOL/L [facility] Potassium, S 4.1 3.6 - 5.2 MMOL/L [facility] Anion Gap 17(H) 7 - 15 [facility] Glucose, S 181(H) 70 - 140 MG/DL [facility] 04/21/2016 4:57 AM AUTOMOBILE DEALER 04/21/2016 4:57 AM AUTOMOBILE DEALER us Edwar Vazquez M.D. LAB BLOOD ADD-ON Final Resul t Performing Organization Address City/[facility]/ZIP Co de Phone Number [facility] [address] * (ABNORMAL) Hemoglobin A1c (05/15/2011 10:12 AM CDT) Hemoglobin A1c, B 6.2(H) 4.0 - 6.0 % [facility] 05/15/2011 10:1 2 AM CDT 05/15/2011 10:12 AM CDT Krishan Reno P.A.-C. LAB BLOOD ADD-ON Final Result Performing Organization Address [facility]/ZIP Co de Phone Number [facility] [address] * OPHTHALMOLOGY IMAGE EXAM (01/03/2009 12:00 AM AUTOMOBILE DEALER) Anatomical Region Laterality Modality Other 01/03/2009 Addenda Addendum by ProviderOlamide M.D. on 01/03/2009 12:00 AM AUTOMOBILE DEALER OPH^^^MCR [facility] 01/03/2009 00:00:00 Historical Provider IMG NON RAD IMAGING PROCEDUR ES Final Result from Last 3 Months or Most Recently Relevant to Health Maintenance Insurance [facility] MEDICARE Advance Directives For more information, please contact: [phone] Documents on File Type Date Recorded Patient Medical Screener Expl anation Advance Directives 05/15/2011 12:00 AM Leg acy document. See document viewer. Advance Directives 05/15/2011 12:00 AM Leg acy document. See document viewer.
--- OUTSIDE RECORDS SUMMARY | 2024-01-21 17:51 | XMS_ITS | Encounter Summary ---
Author Organization [facility] Address [address] [place] [address] Care Team Providers Care Bomb Squad Officer Name Role Phone Unavailable Primary Care [...] AM CDT Legal Sex Female 10:41 AM TRAVEL REGISTERED NURSE ICU Gender Identity Female 12/08/2020 11:58 AM CDT [...] eyes. IMPRESSION / REPORT / PLAN #1 [email or web address] Discussed surgery ([facility]SEK and phaco, IOL LE) for left eye SHe wishes to proceed with DSEK, phaco, IOLleft eye as taking much longer to see well, obvious mocrocystic edema even in mid afternoon, trouble with night driving from [place]. 21.5 D IOL DIAGNOSIS #1 fuchs [facility] Id: [id number] Status: Fnl documented in this encounter Plan of Treatment Not on file documented as of this encounter Visit Diagnoses Not on filedocumented in this encounter
--- OUTSIDE RECORDS SUMMARY | 2024-01-21 17:51 | XMS_ITS | Encounter Summary ---
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 - 10/20/2008 11:46 AM CDT Eye Postoperative MULTI-VISIT DOCUMENT This document contains multiple patient visits and is available for review in Document Viewer. CDM Reports - [facility] Id: [id number] Status: Fnl documented in this encounter Plan of Treatment Not on file documented as of this encounter Visit Diagnoses Not on filedocumented in this encounter
--- OUTSIDE RECORDS SUMMARY | 2024-01-21 17:51 | XMS_ITS | Clinical Summary ---
Author Organization [facility] Address [address] [place] [address] Care Team Providers Care Digital Media Associate Name Role Phone Unavailable Primary Care Provider Unavailabl e Source Comments Patient records contain information from all sites at [facility]. For routine questions regarding patient records, call [phone] during business hours, M-F 8:00 AM - 5:00 PM Central Time. Record requests for emergency care only can be directed to [phone] at any time.[facility] Allergies Active Allergy Reactions Criticality Noted Date [...] often do you attend chur ch or caodaism services? Never 02/28/2022 Do you belong to [...] and heating? Not hard at all 08/23/2022 [facility] - Occupational Stress Questionnaire Answer Date [...] your living situation today? I have a [facility] place to live 08/23/2022 Education Answer Date Recorded What is the highest level of school you have completed or the highest degree you have received? Bachelor's degree (e.g., BA, AB, BS) 05/30/2020 Comments No Sex and Gender Information Value Date Recorded Sex Assigned at Female 12/08/2020 11:58 AM CDT Legal Sex Female 10:41 AM LEGAL OFFICER Gender Identity Female 12/08/2020 11:58 AM CDT Sexual Orientation Straight 12/08/2020 11 :58 AM CDT Last Filed Vital Signs Vital Sign Reading Time Taken Comments Blood Pressure 112/79 08/30/2022 1:44 PM CDT Pulse 80 08/30/2022 1:44 PM CDT Temperature 35.9 C (96.6 F) 03/05/2022 10:24 AM LEGAL OFFICER Respiratory Rate 18 04/21/2016 1:56 PM LEGAL OFFICER Value from [employer]. Oxygen Saturation - - Inhaled Oxygen Concentration - - Weight 91.5 kg (201 lb 11.5 oz) 08/30/2022 1:44 PM CDT Height 165.8 cm (5' 5.28) 03/05/2022 1 0:24 AM LEGAL OFFICER Body Mass Index 33.28 03/05/2022 10:24 AM LEGAL OFFICER Plan of Treatment Health Maintenance Due Date Last Done Comments Diabetic Office Visit with Foot Exam 1944 Hepatitis C Screening 1945 Urine Albumin 1945 Hepatitis B Vaccines (1 of 3 - Risk 3-dose series) 2004 Hemoglobin A1C 11/15/2011 05/15/2011 Potassium Level 04/21/2017 04/21/2016, 03/29, 04/20/2016, Additional history exists Sodium Level 04/21/2017 04/21/2016, 03/29, 04/20/2016, Additional history exists Creatinine Level (Kidney Function Test) 06/21/2019 06/20/2018, 04/21/2016, 04/20/2016, Additional history exists Dilated Eye Exam 02/09/2022 02/09/2021, 01/03/2009 Depression Screening (Annual PHQ-2) 02/25/2023 Fall Risk Screen (Annual) 02/25/2023 Office Visit for Blood Pressure Check / Re-check 08/31/2023 08/30/2022 COVID-19 Vaccine ( season) 2023 12/20/2022, 12/17/2021, 08/01/2021, Additional history exists Influenza Vaccine (#1) 2023 , 12/17/2021, 02/07/2021, Additional history exists DTaP,Tdap,and Td Vaccines (2 - Td or Tdap) 01/14/2025 01/14/2015 Pneumococcal vaccine (65+ years) Completed 12/05/2015, 01/14/2015 Zoster Vaccines Completed 07/11/2022, 09/0 02/2018, 11/22/2011 RSV vaccine - (32-36 weeks) or 60+ years Completed 01/24/2023 IPV Vaccines Aged Out No longer eligi ble based on patient's age to complete this topic Medical Devices Implanted Type Area Chief Commercial Officer Device Identifier Shelf Expiration Date Model / Serial / Lot Standard-Screw Rodrigo 4.5 X 50 - Forrest [id number] Implanted:Qty: 1 on 11/22/2015 Hardware e.g. pins/screws /rods Depuy BTC Trip Description:Device Manufactu [facility] [employer]ynthes. Device Status Text - [id number]. Standard-Screw Rodrigo 4.5 X 30 - Forrest [id number] Implanted:Qty: 2 on 11/22/2015 Hardware e.g. pins/screws /rods Depuy Synthes Description:Device Manufactu rer - Synthes. Device Status Text - HARDWARE-63679. Standard-Screw Rodrigo 4.5 X 32 - Forrest [id number] Implanted:Qty: 1 on 11/22/2015 Hardware e.g. pins/screws /rods Depuy Synthes Description:Device Manufactu rer - Synthes. Device Status Text - HARDWARE-12464. Standard-Screw Rodrigo 4.5 X 40 - Forrest [id number] Implanted:Qty: 1 on 11/22/2015 Hardware e.g. pins/screws /rods Depuy Synthes Description:Device Manufactu rer - Synthes. Device Status Text - HARDWARE-07853. Dcp-Plate T 6ho - Forrest [id number] Implanted:Qty: 1 on 11/22/2015 Hardware e.g. pins/screws /rods Depuy Synthes Description:Device Manufactu rer - Synthes. Device Status Text - HARDWARE-48075. Triathlon-Femor al Modular Peg - Forrest [id number] Implanted:Qty: 1 on 11/22/2015 Knee Implant Other/Legacy - See Implant Description Merritt Description:Device Manufactu rer - Antione Rudy.. Body Location - Other. Left. Device Status Text - KNEE [id number]. Triathlon-Tibia l Comp #4 Ps 9mm - Forrest [id number] Implanted:Qty: 1 on 11/22/2015 Knee Implant Other/Legacy - See Implant Description Antione Description:Device Manufactu rer - Merritt Rudy.. Body Location - Other. Not Applicable. Device Status Text - KNEE [id number]. Triathlon-Inser t X3 Tib 9mm #4 - Forrest [id number] Implanted:Qty: 1 on 11/22/2015 Knee Implant Other/Legacy - See Implant Description Merritt Description:Device Manufactu rer - Antione Rudy.. Body Location - Other. Left. Device Status Text - KNEE [id number]. Triathlon-Tibia l Baseplate [place] #4 - Forrest [id number] Implanted:Qty: 1 on 11/22/2015 Knee Implant Other/Legacy - See Implant Description Merritt Description:Device Manufactu rer - Antione Rudy.. Body Location - Other. Left. Device Status Text - KNEE [id number]. Triathlon-Stem Alex. Exten. 12 X 50mm - Forrest [id number] Implanted:Qty: 1 on 11/22/2015 Knee Implant Other/Legacy - See Implant Description Antione Description:Device Manufactu rer - Antione Rudy.. Body Location - Other. Left. Device Status Text - KNEE [id number]. Triathlon-Femor al Cemented #5 Lt - Forrest [id number] Implanted:Qty: 1 on 11/22/2015 Knee Implant Other/Legacy - See Implant Description Antione Description:Device Manufactu rer - Antione Rudy.. Body Location - Other. Left. Device Status Text - KNEE [id number]. Triathlon-Femor al Modular Peg - Forrest [id number] Implanted:Qty: 1 on 04/19/2016 Knee Implant Other/Legacy - See Implant Description Merritt Description:Device Manufactu rer - Antione Rudy.. Body Location - Other. Right. Device Status Text - KNEE [id number]. Triathlon-Tibia l Baseplate [place] #4 - Forrest [id number] Implanted:Qty: 1 on 04/19/2016 Knee Implant Other/Legacy - See Implant Description Antione Description:Device Manufactu rer - [employer] Rudy.. Body Location - Other. Right. Device Status Text - KNEE [id number]. Triathlon-Femor al Cemented #5 Rt - Forrest [id number] Implanted:Qty: 1 on 04/19/2016 Knee Implant Other/Legacy - See Implant Description Antione Description:Device Manufactu rer - Antione Rudy.. Body Location - Other. Right. Device Status Text - KNEE [id number]. Triathlon-Inser t X3 Tib 9mm #4 - Forrest [id number] Implanted:Qty: 1 on 04/19/2016 Knee Implant Other/Legacy - See Implant Description Antione Description:Device Manufactu rer - Merritt Rudy.. Body Location - Other. Right. Device Status Text - KNEE [id number]. Plug Bone [place] 24mm - Forrest [id number] Implanted:Qty: 1 on 11/22/2015 Mesh or Patch Merritt Description:Device Manufactu rer - Merritt Rudy.. Device Status Text - MESHPATCH-470. Cement Bone Large - Forrest [id number] Implanted:Qty: 3 on 11/22/2015 [facility] Other Antione Description:Device Manufactu rer - Antione Rudy.. Device Status Text - MISCOTHER-2840. Cement Bone Large - Forrest [id number] Implanted:Qty: 2 on 04/19/2016 [facility] Other Merritt Description:Device Manufactu rer - Merritt Rudy.. Device Status Text - MISCOTHER-2840. Cornea - Forrest [id number] Implanted:Qty: 1 on 08/31/2008 Ocular (Eye) Implant Right: Other/Legacy - See Implant Description [facility] Description:Device Manufactu rer - [facility]. Body Location - Right. Device Status Text - [id number]. Cornea - Forrest [id number] Implanted:Qty: 1 on 05/15/2011 Ocular (Eye) Implant Left: Other/Legacy - See Implant Description [facility] Description:Device Manufactu rer - [facility]. Body Location - Left. Device Status Text - [id number]. Lens 6.0x21.5 Qf87za-29.5 - Forrest [id number] Implanted:Qty: 1 on 08/31/2008 Ocular Lens Right: Other/Legacy - See Implant Description [employer] Description:Device Manufactu rer - [employer]. Body Location - Right. Device Status Text - [id number]. Lens 6.0x21.5 Pg30cz-78.5 - Forrest [id number] Implanted:Qty: 1 on 05/15/2011 Ocular Lens Left: Other/Legacy - See Implant Description [employer] Description:Device Manufactu rer - [employer]. Body Location - Left. Device Status Text - [id number]-711648. Procedures Procedure Name Priority Date/Time Associated Diagnosis Comments ELECTROLYTE (CHEM 4) PANEL, S/P Routine 04/21/2016 4:57 AM LEGAL OFFICER HEMOGLOBIN A1C, B Routine 05/15/2011 10: 12 AM CDT OPHTHALMOLOGY IMAGE EXAM Routine 01/03/2009 12:00 AM LEGAL OFFICER from Last 3 Months or Most Recently Relevant to Health Maintenance Results * (ABNORMAL) Electrolyte (Chem 4) Panel (04/21/2016 4:57 AM LEGAL OFFICER) Chloride, S 96(L) 98 - 107 MMOL/L [facility] HX Bicarbonate, P/S 23 22 - 29 MMOL/L [facility] Creatinine 0.6 0.6 - 1.1 MG/DL [facility] BUN (Blood Urea Nitrogen), S 6 6 - 21 MG/DL [facility] Sodium, S 136 135 - 145 MMOL/L [facility] Potassium, S 4.1 3.6 - 5.2 MMOL/L [facility] Anion Gap 17(H) 7 - 15 [facility] Glucose, S 181(H) 70 - 140 MG/DL [facility] 04/21/2016 4:57 AM LEGAL OFFICER 04/21/2016 4:57 AM LEGAL OFFICER Edwar Vazquez M.D. LAB BLOOD ADD-ON Final Resul t [facility] [address] * (ABNORMAL) Hemoglobin A1c (05/15/2011 10:12 AM CDT) Hemoglobin A1c, B 6.2(H) 4.0 - 6.0 % [facility] 05/15/2011 10:1 2 AM CDT 05/15/2011 10:12 AM CDT Krishan Reno P.A.-C. LAB BLOOD ADD-ON Final Result [facility] [address] * OPHTHALMOLOGY IMAGE EXAM (01/03/2009 12:00 AM LEGAL OFFICER) Anatomical Region Laterality Modality Other 01/03/2009 Addenda Addendum by Provider, Historical, M.D. on 01/03/2009 12:00 AM LEGAL OFFICER OPH^^^MCR [facility] 01/03/2009 00:00:00 Historical Provider IMG NON RAD IMAGING PROCEDUR ES Final Result from Last 3 Months or Most Recently Relevant to Health Maintenance Insurance [facility] MEDIC[facility] Advance Directives For more information, please contact: [phone] Documents on File Type Date Recorded Patient Trust Vault Clerk Expl anation Advance Directives 05/15/2011 12:00 AM Leg acy document. See document viewer. Advance Directives 05/15/2011 12:00 AM Leg acy document. See document viewer.
--- OUTSIDE RECORDS SUMMARY | 2024-01-21 17:51 | XMS_ITS | Encounter Summary ---
Author Organization [facility] Address [address] [place] [address] Care Team Providers Care Extermination Supervisor Name Role Phone Unavailable Primary Care [...] AM CDT Legal Sex Female 10:41 AM TOUR AGENT Gender Identity Female 12/08/2020 11:58 AM CDT [...] #4 DM CDM Reports - EYEGEN Id: [id number] Status: Fnl documented in this encounter Plan of Treatment Not on file documented as of this encounter Visit Diagnoses Not on filedocumented in this encounter
--- OUTSIDE RECORDS SUMMARY | 2024-01-21 17:51 | XMS_ITS | Encounter Summary ---
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 IMPRESSION / REPORT / PLAN #1 meme Discussed surgery (DSEK and phaco, IOL LE) for left eye SHe wishes to proceed with DSEK, phaco, IOLleft eye 04/12. DIAGNOSIS #1 fuchs CDM Reports - EYEGEN Id: [id number] Status: Fnl documented in this encounter Plan of Treatment Not on file documented as of this encounter Visit Diagnoses Not on filedocumented in this encounter
--- OUTSIDE RECORDS SUMMARY | 2024-01-21 17:51 | XMS_ITS ---
Author Organization [facility] Address [address] [place] [address] Care Team Providers Care National Sales Trainer Name Role Phone Unavailable Unavailable Unavailable Surgery Details Not on file Complications Check Surgery Details section. Procedure Estimated Blood Loss Check Surgery Details section. Procedure Findings Check Surgery Details section. Procedure Specimens Taken Check Surgery Details section.
--- OUTSIDE RECORDS SUMMARY | 2024-01-21 17:51 | XMS_ITS | Encounter Summary ---
Author Organization [facility] Address [address] [place] [address] Care Team Providers Care Project Finance Analyst Name Role Phone Unavailable Primary Care [...] AM CDT Legal Sex Female 10:41 AM PERLITE GRINDER Gender Identity Female 12/08/2020 11:58 AM CDT [...] #3 fuchs CDM Reports - EYEGEN Id: [id number] Status: Fnl documented in this encounter Plan of Treatment Not on file documented as of this encounter Visit Diagnoses Not on filedocumented in this encounter
--- OUTSIDE RECORDS SUMMARY | 2024-01-21 17:51 | XMS_ITS | Encounter Summary ---
Author Organization [facility] Address [address] [place] [address] Care Team Providers Care Instructional Systems Designer Name Role Phone Unavailable Primary Care Provider [...] AM CDT Legal Sex Female 10:41 AM CHILD SUPPORT SPECIALIST Gender Identity Female 12/08/2020 11:58 AM CDT [...] #3 fuchs CDM Reports - EYEGEN Id: [id number] Status: Fnl documented in this encounter Plan of Treatment Not on file documented as of this encounter Visit Diagnoses Not on filedocumented in this encounter
--- OUTSIDE RECORDS SUMMARY | 2024-01-21 17:51 | XMS_ITS | Encounter Summary ---
Author Organization [facility] Address [address] [place] [address] Care Team Providers Care Kier Pleater Name Role Phone Unavailable Primary Care Provider Unavailabl e Encounter Details Date Type Department Care Team (Late st Contact Info) Description 12/03/2008 Historical Ophthalmology [facility] Chralie Link M.D. Social History Tobacco Use Types Packs/Day Years Used Date Smoking Tobacco: Never Assessed Comments Unknown Sex and Gender Information Value Date Recorded Sex Assigned at Female 12/08/2020 11:58 AM CDT Legal Sex Female 10:41 AM ENGRAVER LETTERING Gender Identity Female 12/08/2020 11:58 AM CDT [...] #1 keratoplasty CDM Reports - EYEGEN Id: [id number] Status: Fnl documented in this encounter Plan of Treatment Not on file documented as of this encounter Visit Diagnoses Not on filedocumented in this encounter
--- OUTSIDE RECORDS SUMMARY | 2024-01-21 17:51 | XMS_ITS | Encounter Summary ---
Author Organization [facility] Address [address] [place] [address] Care Team Providers Care Marketing Agent Name Role Phone Unavailable Primary Care [...] AM CDT Legal Sex Female 10:41 AM MASTIC SPRAYER Gender Identity Female 12/08/2020 11:58 AM CDT Sexual Orientation Straight 12/08/2020 11 :58 AM CDT documented as of this encounter Progress Notes * Charlie Link M.D. - 06/07/2011 9:50 AM CDT Eye Postoperative MULTI-VISIT DOCUMENT This document contains multiple patient visits and is available for review in Document Viewer. CDM Reports - EYEPO Id: [id number] Status: Fnl documented in this encounter Plan of Treatment Not on file documented as of this encounter Visit Diagnoses Not on filedocumented in this encounter
--- OUTSIDE RECORDS SUMMARY | 2024-01-21 17:51 | XMS_ITS | Encounter Summary ---
Author Organization [facility] Address [address] [place] [address] Care Team Providers Care Inspector Optical Instrument Name Role Phone Unavailable Primary Care Provider [...] AM CDT Legal Sex Female 10:41 AM SUPERVISOR INVENTORY MERCHANDISING Gender Identity Female 12/08/2020 11:58 AM CDT Sexual Orientation Straight 12/08/2020 11 :58 AM CDT documented as of this encounter Progress Notes * Kenyetta Atwood, C.O.A. - 03/11/2009 10:43 AM CST Eye Subsequent Visit HISTORY OF PRESENT ILLNESS Preop checklist: preop instructions given, glasses read, informed consent documented in Informed Consent (IC) section, CVI current. CDM Reports - EYESV Id: [id number] Status: Fnl documented in this encounter Plan of Treatment Not on file documented as of this encounter Visit Diagnoses Not on filedocumented in this encounter
--- NOTE | 2024-01-21 18:31 | ED.GENADULT ---
HPI - General Adult General Chief complaint: Fall/Minor Trauma Stated complaint: Fall-both knees and head hit Time Seen by Provider: 01/21/24 17:30 Source: patient Mode of arrival: ambulatory Limitations: no limitations History of Present Illness HPI narrative: 78-year-old female presenting today after tripping on her rug and falling at home. Patient states that she fell forward onto her knees, left knee took most of her weight. She also hit her forehead when she came down. She states that she was able to walk afterwards. She did not lose consciousness. She denies headache or neck pain. She is on Eliquis. She has had a total knee replacement on the left side. She did notice significant bruising and swelling after she fell so she came in for evaluation. Related Data Home Medications ?Medication ?Instructions ?Recorded ?Confirmed prednisolone acetate 1 % eye drp 10/15/21 11/14/23 drops,suspension lorazepam 0.5 mg tablet 0.5 mg PO QDAY PRN 10/31/21 11/14/23 Diabetic Test Strips 05/21/22 11/14/23 lancets 05/21/22 11/14/23 Previous Rx's ?Medication ?Instructions ?Recorded pen needle, diabetic 32 gauge x #100 ea 11/22/22 (BD Sofiya 2nd Gen Pen Needle) cholecalciferol (vitamin D3) 25 25 mcg PO QDAY #90 caps 11/14/23 mcg (1,000 unit) capsule dulaglutide 1.5 mg/0.5 mL 1.5 mg (0.5 mL) subcut QWEEK #2 mL 11/14/23 subcutaneous pen injector ([facility]) albuterol sulfate 90 mcg/actuation 2 puff inhalation Q4H PRN 11/26/23 aerosol inhaler shortness of breath or wheezing #8.5 grams apixaban 5 mg tablet (Eliquis) 5 mg PO BID #180 tabs 11/26/23 fluticasone 250 mcg-salmeterol 50 1 inh inhalation QDAY #60 ea 11/26/23 mcg/dose blistr powdr for inhalation (Advair Diskus) fluticasone propionate 50 2 spray intranasal QDAY PRN nasal 11/26/23 mcg/actuation nasal congestion #16 grams spray,suspension glimepiride 1 mg tablet 2 mg (2 x 1 mg) PO DAILY #180 tabs 11/26/23 lisinopril 2.5 mg tablet 2.5 mg PO QDAY #90 tabs 11/26/23 omeprazole 20 mg capsule,delayed 20 mg PO QDAY #90 caps 11/26/23 release simvastatin 20 mg tablet 20 mg PO QPM #90 tabs 11/26/23 paroxetine HCl 20 mg tablet 20 mg PO QDAY #90 tabs 01/21/24 Allergies Allergy/AdvReac Type Severity Reaction Status Date / Time bupropion AdvReac Mild Diarrhea Verified 11/14/23 12:40 metformin AdvReac Unknown Verified 11/14/23 12:40 Review of Systems Status of ROS: Reports: 6 or more systems reviewed and unremarkable except as noted in History and below [facility] Medical History Abdominal pain ?R10.9 - Unspecified abdominal pain (ICD-10) Deep vein thrombosis (DVT) (01/01/20) ?I82.409 - Acute embolism and thrombosis of unspecified deep veins of unspecified lower extremity (ICD-10) Dyslipidemia ?E78.5 - Hyperlipidemia, unspecified (ICD-10) Obesity (BMI 30.0-34.9) ?E66.9 - Obesity, unspecified (ICD-10) Vertebral artery stenosis (04/2018) ?I65.09 - Occlusion and stenosis of unspecified vertebral artery (ICD-10) Transient diplopia (05/2018) ?H53.2 - Diplopia (ICD-10) 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) ?H49.22 - Sixth [abducent] nerve palsy, left eye (ICD-10) Ocular migraine ?G43.109 - Migraine with aura, not intractable, without status migrainosus (ICD-10) Obstructive sleep apnea treated with continuous positive airway pressure (CPAP) ?G47.33 - Obstructive sleep apnea (adult) (pediatric) (ICD-10) ?Z99.89 - Dependence on other enabling machines and devices (ICD-10) History of sarcoidosis (1980) ?Z86.2 - Personal history of diseases of the blood and blood-forming organs and certain disorders involving the immune mechanism (ICD-10) Fuchs' corneal dystrophy ?H18.519 - Endothelial corneal dystrophy, unspecified eye (ICD-10) Diplopia (2020) ?H53.2 - Diplopia (ICD-10) Diabetes mellitus (~2016) ?E11.9 - Type 2 diabetes mellitus without complications (ICD-10) Depression ?F32.A - Depression, unspecified (ICD-10) 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) ?I77.3 - Arterial fibromuscular dysplasia (ICD-10) Anxiety disorder ?F41.9 - Anxiety disorder, unspecified (ICD-10) Surgical History Status post cholecystectomy (2016) ?Z90.49 - Acquired absence of other specified parts of digestive tract (ICD-10) History of tubal ligation (1982) ?Z98.51 - Tubal ligation status (ICD-10) History of total vaginal hysterectomy (TVH) (2010) ?Z90.710 - Acquired absence of both cervix and uterus (ICD-10) History of total right knee replacement (03/2016) ?Z96.651 - Presence of right artificial knee joint (ICD-10) History of total left knee replacement (2015) ?Z96.652 - Presence of left artificial knee joint (ICD-10) History of lymph node biopsy ?Z98.890 - Other specified postprocedural states (ICD-10) History of inguinal hernia repair ?Z98.890 - Other specified postprocedural states (ICD-10) ?Z87.19 - Personal history of other diseases of the digestive system (ICD-10) History of cystoscopy (2015) ?Z98.890 - Other specified postprocedural states (ICD-10) History of cornea transplant ?Z94.7 - Corneal transplant status (ICD-10) Family History Paternal Grandmother Breast cancer Father Family history of early CAD, Onset Age: 38 Son Major depression Daughter Major depression Sister Parkinsonism Other Stroke Social History Narrative: 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 , 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 Alert and oriented. Answers questions appropriately. Mood and affect are appropriate. Thoughts are goal oriented and rational. No tangential or magical thinking noted. Patient speaks in full sentences without needing to catch her breath. HEENT: Normocephalic atraumatic. No evidence of trauma to the scalp or forehead. Extraocular muscles are intact. Conjunctivae are moist without any icterus noted. Moist mucous membranes. Neck is soft. She has no tenderness to palpation over the cervical spine. She has full range of motion flexion, extension, side bending and rotation without pain. Abdomen: Soft and nontender nondistended with normal bowel sounds. Extremities: Patient has a large hematoma over the left anterior knee. The area is tender. She can flex and extend the knee without significant discomfort. She has no pain with passive range of motion. She has good DP and PT pulses. Scarring from old knee replacements. Right knee has mild anterior ecchymosis without significant swelling. Skin: Well perfused. Const: Vital Signs, click to edit/add: Vital Signs - 24 hr 01/21/24 17:27 Temperature 98.5 F Pulse Rate [Pulse Oximeter] 98 Respiratory Rate 18 Blood Pressure [Ri ght Upper Arm] 125/80 Pulse Oximetry 96 Oxygen Delivery Me thod Room Air Course Course ED Course: Because she hit her head and she is not Eliquis and secondary to her age, we did proceed with a head CT which was unremarkable. Knee x-ray was done: Shows a linear lucency that may represent an acute fracture. Given him a hematoma present for this likely does indeed represent a fracture. I did speak with Siobhan orthopedic PA, who recommends an Parmjit for compression and a knee immobilizer. Follow-up next week with Orthopedics. Discussed with the patient who assures minute she will be able to get around her home. She does have 16 stairs but she states that she was able to navigate that after she had knee surgery and she sees no reason why she can not navigate that at this time. Vital Signs Vital signs: Initial Vital Signs Temperature 98.5 F 01/21/24 17:27 Temperature Source Temporal Artery Scan 01/21/24 17:27 Pulse Rate 98 01/21/24 17:27 Pulse Rhythm Regular 01/21/24 17:27 Respiratory Rate 18 01/21/24 17:27 Blood Pressure 125/80 01/21/24 17:27 Blood Pressure Mean 95 01/21/24 17:27 Blood Pressure Position Sitting 01/21/24 17:27 Pulse Oximetry 96 01/21/24 17:27 Oxygen Delivery Method Room Air 01/21/24 17:27 Vital Signs Temperature 98.5 F 01/21/24 17:27 Pulse Rate 98 01/21/24 17:27 Respiratory Rate 18 01/21/24 17:27 Blood Pressure 125/80 01/21/24 17:27 Pulse Oximetry 96 01/21/24 17:27 Oxygen Delivery Method Room Air 01/21/24 17:27 Temperature 98.5 F 01/21/24 17:27 Pulse Rate 98 01/21/24 17:27 Respiratory Rate 18 01/21/24 17:27 Blood Pressure 125/80 01/21/24 17:27 Pulse Oximetry 96 01/21/24 17:27 Oxygen Delivery Method Room Air 01/21/24 17:27 Medical Decision Making MDM Narrative Medical decision making narrative: 78-year-old female status post a fall presenting with a patellar fracture. Plan per above. Imaging Data knee xray: Attestation: I have reviewed the pertinent imaging results. Radiologist's impression: INDICATION: Knee injury from Fall TECHNIQUE: Knee radiograph 3 views left COMPARISON: None FINDINGS: Bone: Medial metallic plate ORIF of the proximal tibia is noted. On the sunrise view, there is a linear lucency along the lateral pole of the patella. Joint: Total knee arthroplasty is present. No significant knee effusion is seen. Soft tissue: Anterior soft tissue swelling and subcutaneous edema is noted. No radiopaque foreign bodies are seen. Small varicose veins are present surrounding the knee and calf. IMPRESSION: 1. On the sunrise view, there is a linear lucency along the lateral pole of the patella. Correlation with physical exam for focal tenderness in this region is recommended to exclude an acute fracture. CT scan - head: Attestation: I have reviewed the pertinent imaging results. Radiologist's impression: Technique: Volumetric multidetector CT images of the head were obtained without the administration of low osmolar intravenous contrast. Comparison: None available Findings: There is no intra-axial or extra-axial fluid collection. There is no mass effect or midline shift. There is age-related cortical atrophy with mild sulcal widening and ex vacuo dilatation of the lateral ventricles. There are chronic small vessel disease changes in the subcortical and periventricular white matter without lost chaves-white differentiation. The orbits and their contents are grossly within normal limits. 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 Otherwise, the bony calvarium is grossly intact. There is mildly polypoid mucosal thickening within the left sphenoid sinus and posterior ethmoid air cells. The mastoid air cells are well aerated. Impression: Age-related and chronic small-vessel disease changes of the brain without acute intracranial abnormality. Discharge Plan Discharge Clinical Impression: Fracture, patella Additional Instructions: Wear knee immobilizer at all times. Okay to use Tylenol as needed for discomfort. Elevate legs as much as possible. Follow up with Orthopedics early next week. Prescriptions: No Action (DME) Diabetic Test Strips Misc See Rx Instructions .Route Rx Instructions: As directed (DME) lancets Misc See Rx Instructions .Route Rx Instructions: As directed Trulicity 1.5 mg/0.5 mL pen injector 1.5 mg subcut QWEEK Qty: 2 6RF cholecalciferol (vitamin D3) 25 mcg (1,000 unit) capsule 25 mcg PO QDAY Qty: 90 4RF prednisolone acetate 1 % drops,suspension Patient Comments: SHAKE LIQUID AND INSTILL 1 DROP IN BOTH EYES EVERY DAY lorazepam 0.5 mg tablet 0.5 mg PO QDAY PRN Patient Comments: TAKE 1 TABLET BY MOUTH DAILY NEEDED FOR SEVERE ANXIETY ONLY (DME) pen needle, diabetic [BD Sofiya 2nd Gen Pen Needle] 32 gauge x 5/32 needle MISCELLANEOUS Qty: 100 6RF Rx Instructions: As directed albuterol sulfate 90 mcg/actuation HFA aerosol inhaler 2 puff inhalation Q4H PRN (Reason: shortness of breath or wheezing) Qty: 8.5 2RF Eliquis 5 mg tablet 5 mg PO BID Qty: 180 4RF fluticasone propion-salmeterol [Advair Diskus] 250-50 mcg/dose blister with device 1 inh INHALATION QDAY Qty: 60 12RF fluticasone propionate 50 mcg/actuation spray,suspension 2 spray INTRANASAL QDAY PRN (Reason: nasal congestion) Qty: 16 8RF glimepiride 1 mg tablet 2 mg PO DAILY Qty: 180 3RF lisinopril 2.5 mg tablet 2.5 mg PO QDAY Qty: 90 4RF omeprazole 20 mg capsule,delayed release(DR/EC) 20 mg PO QDAY Qty: 90 4RF simvastatin 20 mg tablet 20 mg PO QPM Qty: 90 4RF paroxetine HCl 20 mg tablet 20 mg PO QDAY Qty: 90 3RF Follow Up/Referrals: Joan Aragon MD [Primary Care Provider] - Stand Alone Forms: [facility] Info Instructions
== END 2024-01-21 19:02 | disposition home or self-care (01) ==
PROVIDERS: Emergency Provider Family Medicine; PCP Family Medicine
DX: S82.002A Unspecified fracture of left patella, initial encounter for closed fracture (principal); S09.90XA Unspecified injury of head, initial encounter; W01.198A Fall on same level from slipping, tripping and stumbling with subsequent striking against other object, initial encounter; Y92.009 Unspecified place in unspecified non-institutional (private) residence as the place of occurrence of the external cause
CPT/HCPCS: 70450; 73562; 99284

== ENCOUNTER 2024-02-13 14:38 | Outpatient (CLI) | payer MEDICARE, BC, SELFPAY ==
--- NOTE | 2024-02-13 14:40 | CRLHL7_ITS ---
For Patients: As a result of the Century Cures Act, medical imaging exams and procedure reports are released immediately into your electronic medical record. You may view this report before your referring provider. If you have questions, please contact your health care provider. BILATERAL SCREENING MAMMOGRAM WITH COMPUTER-AIDED DETECTION AND TOMOSYNTHESIS TECHNIQUE: CC and MLO views were obtained. These mammographic images have been obtained using full-field digital technique. These mammographic images were interpreted with the benefit of computer-aided detection. Breast Tomosynthesis was used in this interpretation. COMPARISON FILM: 02/08/22, 01/24/21, 11/04/19. FINDINGS: There are scattered areas of fibroglandular density. IMPRESSION: There is no radiographic evidence for malignancy. ASSESSMENT: BI-RADS Category 1: Negative RECOMMENDATION: Routine screening mammogram in 1 year. A lay language report of this examination will be provided to the patient. Carrington Shaikh M.D. Diagnostic Radiologist [email or web address] SP/Dictated by: Carrington Shaikh MD @ 02/14/2024 12:38:00 PM (Electronically Signed)
== END 2024-02-13 14:39 | disposition home or self-care (01) ==
LOC: MAMMO 14:38
PROVIDERS: PCP Family Medicine; Visit Provider Family Medicine
DX: Z12.31 Encounter for screening mammogram for malignant neoplasm of breast (principal)
CPT/HCPCS: 77063; 77067

== ENCOUNTER 2024-03-11 13:50 | Outpatient (CLI) | payer MEDICARE, BC, SELFPAY ==
--- NOTE | 2024-03-11 14:00 | CRLHL7_ITS ---
For Patients: As a result of the Century Cures Act, medical imaging exams and procedure reports are released immediately into your electronic medical record. You may view this report before your referring provider. If you have questions, please contact your health care provider. XR DXA Bone Mineral Density (BMD) Reason for exam: Asymptomatic menopausal state. Current height (in): 64. Weight (lb): 190. Menopause age: 39. Ethnicity: White. 1. Have you had a previous hip or vertebral fracture? No. 2. Have you had any fractures during your adult life which did not result from significant trauma (e.g., auto accident)? No. 3. Did either of your parents have a hip fracture? No. 4. Do you smoke? No. 5. Have you ever taken Glucocorticoids? No. 6. Do you have rheumatoid arthritis? No. 7. Do you have secondary osteoporosis? No. 8. Do you drink 3 or more alcoholic drinks per day? No. 9. Are you being treated for osteoporosis? No. 10. Have you ever taken any of the following medications: Actonel, Evista, Fosamax, Miacalcin, Reclast, Boniva, Forteo, HRT (i.e., estrogen/hormone therapy), Protelos, Prolia, Vitamin D, Calcium, other ??? please specify. ANSWER: Yes, vitamin D. 11. Do you have any of the following medical conditions: Anorexia or bulimia, asthma or emphysema, end stage renal disease, hyperparathyroidism, any seizure disorders, cancer, inflammatory bowel diseases, hysterectomy, other ??? please specify. ANSWER: Yes, asthma or emphysema and hysterectomy. 12. What was your maximum height (inches)? 66. 13. Do you perform weight bearing exercise regularly? No. 14. Do you regularly consume dairy products? Yes. 15. Do you drink caffeinated beverages? No. 16. At what age did your period start? 10. 17. Are you premenopausal? No. 18. How many full-term pregnancies have you had? N/A. 19. Have you ever missed your period for more than 6 months in a row (not including or menopause)? No. TECHNIQUE: Bone mineral density study was performed using the [employer] Software. FINDINGS: The results of the study expressed as bone mineral density (BMD) are as follows: Lumbar spine L1, L3, L4: BMD: 1.173 g/cm2. T-score: 1.1. Z-score: 3.8 Neck Left BMD: 0.910 g/cm2. T-score: 0.6. Z-score: 2.8 Right: BMD: 0.916 g/cm2. T-score: 0.6. Z-score: 2.9 Total Left BMD: 1.067 g/cm2. T-score: 1.0. Z-score: 3.1 Right: BMD: 1.121 g/cm2. T-score: 1.5. Z-score: 3.5. T-score: 1.0. Z-score: 3.1 IMPRESSION: Normal bone density. *Comparison exams done prior to 07/2019 were performed on different unit, [employer]. Carrington Shaikh M.D. Diagnostic Radiologist [email or web address] [email or web address] li/Dictated by: Carrington Shaikh MD @ 03/12/2024 10:22:00 AM (Electronically Signed)
== END 2024-03-11 13:51 | disposition home or self-care (01) ==
LOC: RAD 13:51
PROVIDERS: PCP Family Medicine; Visit Provider Family Medicine
DX: Z78.0 Asymptomatic menopausal state (principal)
CPT/HCPCS: 77080

== ENCOUNTER 2024-05-11 11:08 | Outpatient (CLI) | payer MEDICARE, BC, SELFPAY | END 2024-05-11 11:09 | disposition home or self-care (01) | LOC: NFLDREF 05-12 07:19 | PROVIDERS: PCP Family Medicine; Referring Provider Family Medicine; Visit Provider Family Medicine | DX: I10 Essential (primary) hypertension (principal); M81.0 Age-related osteoporosis without current pathological fracture; E55.9 Vitamin D deficiency, unspecified; E11.9 Type 2 diabetes mellitus without complications | CPT/HCPCS: 80053; 82306 ==

== ENCOUNTER 2024-08-06 11:00 | Outpatient (CLI) | payer MEDICARE, BC, SELFPAY | END 2024-08-06 11:01 | disposition home or self-care (01) | LOC: NFLDREF 08-07 01:26 | PROVIDERS: PCP Family Medicine; Referring Provider Family Medicine; Visit Provider Family Medicine | DX: I10 Essential (primary) hypertension (principal); E11.9 Type 2 diabetes mellitus without complications; E55.9 Vitamin D deficiency, unspecified | CPT/HCPCS: 80053; 82043; 82570 ==

== ENCOUNTER 2024-11-23 10:55 | Outpatient (CLI) | payer MEDICARE, BC, SELFPAY | END 2024-11-23 10:56 | disposition home or self-care (01) | PROVIDERS: PCP Family Medicine; Referring Provider Family Medicine; Visit Provider Family Medicine | DX: I10 Essential (primary) hypertension (principal); E78.5 Hyperlipidemia, unspecified; E55.9 Vitamin D deficiency, unspecified; E53.8 Deficiency of other specified B group vitamins; E11.51 Type 2 diabetes mellitus with diabetic peripheral angiopathy without gangrene | CPT/HCPCS: 80053; 80061; 82043; 82306; 82570; 82607 ==